=== PATIENT | female | born 1940 | race Caucasian/White ===

== ENCOUNTER → 2018-06-27 10:52 | Outpatient (CLI) | payer MEDICARE, SELFPAY | PROVIDERS: Family Provider Family Medicine; PCP Family Medicine; Visit Provider Nurse Practitioner Adult Health | DX: M79.672 Pain in left foot (principal) | CPT/HCPCS: 73630 ==

== ENCOUNTER → 2019-03-23 | Outpatient (CLI) | payer MEDICARE, SELFPAY ==
[2019-03-13 13:57] VITALS: BMI 37.8
--- NOTE | 2019-03-23 09:45 | RAD_ITS ---
STUDY: X-RAY - PELVIS AND LEFT HIP REASON FOR EXAM: Female, 79 years old. Right hip deformity TECHNIQUE: 3 views of the pelvis and hip. COMPARISON: None. FINDINGS: There is a non-specific bowel gas pattern. There are multiple calcified phleboliths. Normal bilateral iliac wings, sacroiliac joints and visualized sacrum. Normal bilateral superior and inferior pubic rami. Normal pubic symphysis. Normal bilateral ischial tuberosities. There are osteoarthritic changes of the femoral head with marginal osteophyte formation. There is osteoarthritic spur formation of the acetabular rim. There is mild articular joint space narrowing of the hip. RAD/HIP, UNI W/ Pelvis 2-3 Views IMPRESSION: Mild arthrosis of the left hip. Electronically Signed: Ming Garcia MD at 14:08 EDT , Service support ,
== END | disposition home or self-care (01) ==
PROVIDERS: Family Provider Family Medicine; PCP Family Medicine; Referring Provider Family Medicine; Visit Provider Family Medicine
DX: M25.552 Pain in left hip (principal)
CPT/HCPCS: 73502

== ENCOUNTER 2019-07-11 14:44 | Inpatient (IN) | payer MEDICARE, SELFPAY ==
[2019-03-13 13:57] VITALS: BMI 37.8
[2019-07-11] VITALS (13 sets, daily range): BP systolic 141–169; BP diastolic 70–95; PULSE 58–73; RESP 17–23; TEMP 36.6–36.9; O2SAT 94–98; BMI 36.8; BMI 33.1; BMI 33.2
--- NOTE | 2019-07-11 14:52 | NURSING ---
NO OLD EKGS
--- NOTE | 2019-07-11 15:13 | EKG12_ITS ---
Test Reason : CP Blood Pressure : / mmHG Vent. Rate : 063 BPM Atrial Rate : 063 BPM P-R Int : 174 ms QRS Dur : 078 ms QT Int : 454 ms P-R-T Axes : 012 -26 020 degrees QTc Int : 464 ms Normal sinus rhythm Normal ECG Confirmed by JUNG MARCUS ([id number]), editor continuity and script CELSO LAU ([id number]) on 07/16/2019 2:43:54 PM Referred By: TO Confirmed By:JUNG MARCUS
--- NOTE | 2019-07-11 15:14 | RAD_ITS ---
STUDY: X-RAY CHEST REASON FOR EXAM: Female, 79 years old. Chest pain TECHNIQUE: Single frontal view of the chest. COMPARISON: None. FINDINGS: The lungs are clear and expanded. There is no demonstrated pleural abnormality. Normal size heart. Normal mediastinum and emigdio. Normal visualized pulmonary arteries. Normal visualized aortic arch and descending thoracic aorta. Normal visualized thoracic spine. Remote deformity of the right humerus. There is no demonstrated abnormality of the visualized soft tissue structures of the upper abdomen. RAD/Chest 1 View (Portable) IMPRESSION: No acute pulmonary findings. Electronically Signed: Keagan Guzmán MD at 16:04 EDT Tel , Service support ,
--- NOTE | 2019-07-11 15:15 | ED.DCSUM_ITS ---
- ER Visit Summary Date of Service: 07/11/19 Chief Complaint: Chest pain History of Present Illness: The patient is a 79 F presenting with chest pain. Patient states this started around 11 AM. She complained of midsternal chest pain that radiated to her right arm. She had associated shortness of breath, nausea, diaphoresis. She states the pain was 8 out of 10. Currently it has resolved. She also had an episode last night with similar complaints. She has a history of hypertension, unknown family history. Remote history of DVT, no other PE/DVT risk factors. Physical Examination: Vitals are stable. Patient is afebrile. Alert no acute distress. HEENT exam is unremarkable. Neck is supple. Lungs are clear and equal bilaterally. Heart is regular rate and rhythm. Abdomen is soft nontender nondistended. Extremities are unremarkable. Nontender, no edema Skin is warm and dry. No focal neurologic deficit. Remainder of exam is unremarkable. Emergency Department Course and Treatment: Patient was given aspirin. EKG is sinus rhythm rate of 63 with no acute ischemic changes. CBC, chemistries unremarkable other than BUN 23, creatinine 1.06. Troponin 0.180. D-dimer 0.58. CTA chest is obtained and shows normal CTA chest examination, without a demonstrated pulmonary embolism or aortic dissection. Patient remains chest pain-free in the emergency department. Discussed with the hospitalist for observation. Disposition: Observation Impression: Chest pain This note was generated with [employer] dictation software. It may contain incorrect words, spelling, and punctuation that were not noted in review of the chart prior to signing ED Disposition - Plan for ED Patient: Referrals: John Gutierrez DO [Primary Care Provider] -
[2019-07-11] MEDS: Aspirin 81 MG TAB.CHEW 324 MG PO (15:25)
[2019-07-11 15:28] LABS: Absolute Lymphocyte Count 1.19 X10^3/uL (0.83-4.51); Absolute Neutrophil Count 4.7 X10^3/uL (2.0-7.7); Basophil# 0.02 X10^3/uL; Basophil% 0.3 % (0-1); Eosinophil# 0.07 X10^3/uL; Hematocrit 44.6 % (37-47); Lymphocyte # 1.19 X10^3/ul (4.0); Lymphocyte % 17.8 % (19-41); Mean Corp Hgb Conc 33.6 g/dL (32-36); Mean Corpuscular Hgb 31.7 pg (27.0-32.0); Mean Corpuscular Volume 94.3 fL (81-99); Mean Platelet Vol. 11.5 fl (6.2-12.0); Monocyte# 0.67 X10^3/uL; NRBC Flagged by Analyzer 0 % (0-5); Neutrophil # 4.73 X10^3/uL (2.7-7.7); Neutrophil % 70.6 % (47-70); Platelet Count 196 K/mm3 (150-450); RBC Distribution Width CV 13.1 % (11.6-14.6); RBC Distribution Width SD 45.1 fl (35.1-43.9); Red Blood Count 4.73 M/mm3 (4.2-5.4); White Blood Count 6.7 K/mm3 (4.4-11.0)
[2019-07-11 15:36] LABS: Anion Gap 4 (5-15); BUN 23 mg/dL (7-18); BUN/Creat Ratio 21.7 RATIO (10-20); Calcium,Total 9.2 mg/dL (8.5-10.1); Chloride 105 mmol/L (98-107); Creatinine, Serum 1.06 mg/dL (0.55-1.02); EST Glomerular Filtration Rate 53 mL/min (>60); Est Glom Filt Rate - Afr Amer 64 mL/min (>60); Glucose 103 mg/dL (74-106); Potassium 3.9 mmol/L (3.5-5.1); Sodium Level 139 mmol/L (136-145)
[2019-07-11 15:38] LABS: D-Dimer Quantitative (DVT/PE) 0.58 FEU/ug/m (0.27-0.49)
--- NOTE | 2019-07-11 15:39 | CT_ITS ---
STUDY: CTA CHEST REASON FOR EXAM: Female, 79 years old. Chest pain, SOB, elevated d-dimer RADIATION DOSAGE (If Supplied By Facility): CTDIvol = ( 8.65 ) mGy, DLP = ( 366.37 ) mGycm TECHNIQUE: The examination was performed with the intravenous administration of 100mL IV Isovue 370. Post-processing of the angiographic images was performed, with multiplanar reformation and 3D reconstruction. Individualized dose optimization techniques were used for this CT. COMPARISON: None. FINDINGS: Normal enhancement of the main pulmonary artery and right and left pulmonary arteries. Normal enhancement of the bilateral peripheral pulmonary arteries. There is no demonstrated pulmonary embolism. Normal thoracic aorta and visualized great vessels. There is no demonstrated aortic dissection. Normal heart and pericardium. Normal mediastinum. Normal hilar regions. Tracheobronchial calcifications. The lungs are well expanded. Normal pulmonary parenchyma. Normal pleura. Normal chest wall structures. Remote deformity of the right proximal humerus. Thoracic spondylosis. Normal visualized upper abdomen. CT/CTA Chest W/WO Contrast IMPRESSION: Normal CTA chest examination, without a demonstrated pulmonary embolism or aortic dissection. Electronically Signed: Keagan Guzmán MD at 16:46 EDT Tel , Service support ,
--- NOTE | 2019-07-11 16:53 | NURSING ---
DR MARIYA MAURER
--- NOTE | 2019-07-11 17:12 | NURSING ---
PCU OBS JASPREET MERAZ
--- NOTE | 2019-07-11 17:21 | HP.PCM_ITS ---
Problem List (1) NSTEMI (non-ST elevated myocardial infarction) Status: Acute History of Present Illness Date of Admission: 07/11/19 Chief Complaint: chest pain The patient is a 79 year old F normal state of health up until Tuesday, worse she was developing right-sided chest pain rating down her right arm. It was intermittent and but has persisted. Patient did not seek attention earlier because of the weekend feeling that she would not get the appropriate treatment and decided to stay home until today. Presented to the emergency room where she had a d-dimer that was 0.58, a troponin that was 0.18. Patient underwent a CT angiogram of her chest that was negative for pulmonary embolism. And patient being admitted for further cardiac evaluation. Patient is never had chest pain like this before. 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, ventricular (Chronic) Medical History: Medical History (Last Reviewed 07/11/19 @ 17:22 by Felix Ward DO) A-fib I48.91 Anemia D64.9 Arthritis M19.90 Cataracts, bilateral H26.9 History of kidney stones Z87.442 History of pneumonia Z87.01 Seasonal allergies J30.2 Hypertension I10 Allergies piroxicam [From Feldene] Adverse Reaction (Unknown, Verified 07/11/19 14:45) Unknown adhesive bandages Adverse Reaction (Unknown, Uncoded 07/11/19 14:45) Unknown Home Medications: Ambulatory Orders Medication Instructions Recorded amlodipine 10 mg tablet 10 mg PO DAILY 03/13/19 biotin 1 mg capsule 1 mg PO DAILY 03/13/19 cinnamon bark 500 mg capsule 500 mg PO BID 03/13/19 cranberry 400 mg capsule 400 mg PO DAILY 03/13/19 donepezil 10 mg tablet 10 mg PO QHS 03/13/19 lisinopril 10 1 tab PO DAILY 03/13/19 mg-hydrochlorothiazide 12.5 mg tablet metoprolol succinate ER 25 mg 25 mg PO DAILY 03/13/19 tablet,extended release 24 hr omega-3 fatty acids 1,000 mg 1,000 mg PO DAILY 03/13/19 capsule Aspirin [Aspir-Low] 81 mg PO QHS 07/11/19 Multivitamin [Daily Aleksandra] 1 ea PO DAILY 07/11/19 Naproxen Sodium [Aleve] 220 mg PO DAILY 07/11/19 Surgical History: Surgical History (Last Reviewed 07/11/19 @ 17:22 by Felix Ward DO) History of carpal tunnel release Z98.890 History of section Z98.891 Lives: Spouse/ Significant Other Smoking Status: Never smoker Tobacco Use: Non-smoker Alcohol: None - *Family History Maternal Family History: Family History (Last Reviewed 07/11/19 @ 17:22 by Felix Ward DO) Other Arthritis Cancer Review of Systems Constitutional: Denies: Anorexia, Chills, Fever, Night Sweats Eyes: Denies: Blurred vision, Double vision HEENT: Denies: Head Aches, Sinus Congestion, Sinus Drainage Cardiovascular: Reports: Chest Pain. Denies: Edema Respiratory: Denies: Cough, Shortness of breath at rest, Sputum production Gastrointestinal: Reports: Nausea, Vomiting. Denies: Abdominal Pain Genitourinary: Denies: Dysuria Musculoskeletal: Denies: Joint Pain, Joint Tenderness Skin: Denies: Rash, Wounds Hematologic/ Lymphatic: Denies: Easy Bruising, Easy Bleeding, Hx of blood clot Comment: A 10 point review of systems were negative except as mentioned in the history of present illness and the other review of systems. VTE Information - Inpt Only VTE Present on Admission: No VTE Mechan Device Prophylaxis: SCD's VTE Pharm Prophylaxis ordered?: No Reason prophylaxis not ordered:: Procedure Not Indicated Patient Problems: Active and Suspected Problems (Last Reviewed 03/13/19 @ 14:42 by John Gutierrez DO) NSTEMI (non-ST elevated myocardial infarction) (Acute) - Physical Exam General: Alert, Cooperative, No apparent distress HEENT: Atraumatic, Normocephalic Oral: Moist Mucosa, No Gingival or Mucosal Lesions/ Ulcerations Neck: No JVD, No Nodes, Thyroid Normal Size and Texture Lungs: Clear to auscultation, Normal air movement, No rhonchi, No wheeze, No rales Cardiovascular: Regular rate, Regular Rhythm, Normal S1, Normal S2, No murmurs Abdomen: Bowel Sounds Present, Soft, Non Tender, Non-Distended, No Hepato- splenomegaly Extremities: No edema, No Calf Tenderness Skin: No rashes, No breakdown Musculoskeletal: No Tenderness to Palpation of Joints or Extremities, No Muscle Wasting Neurological: Muscle tone normal, Sensory exam intact to light touch and pain Psych/Mental Status: Normal Affect, Appropriate Vital Signs Temp Pulse Resp BP Pulse Ox 36.9 C 59 L 19 H 141/75 H 95 07/11/19 17:11 07/11/19 17:11 07/11/19 17:11 07/11/19 17:11 07/11/19 17:11 Oxygen Delivery Method Room Air Weight: 85.5 kg Body Mass Index (BMI) 36.8 Laboratory Tests Past 24 Hrs 07/11/19 07/11/19 07/11/19 15:06 15:06 15:06 WBC 6.7 RBC 4.73 Hgb 15.0 Hct 44.6 MCV 94.3 MCH 31.7 MCHC 33.6 RDW Std Deviation 45.1 H RDW Coeff of Hafsa 13.1 Plt Count 196 MPV 11.5 Immature Gran % (Auto) 0.300 Neut % (Auto) 70.6 H Lymph % (Auto) 17.8 L [place] % (Auto) 10.0 Eos % (Auto) 1.0 Baso % (Auto) 0.3 Absolute Neuts (auto) 4.7 Absolute Lymphs (auto) 1.19 Nucleated RBC % 0 D-Dimer Quant (PE/DVT) 0.58 H* Sodium 139 Potassium 3.9 Chloride 105 Carbon Dioxide 30.0 Anion Gap 4 L BUN 23 H Creatinine 1.06 H Estim Creat Clear Calc 29.90 Est GFR (MDRD) Af Amer 64 Est GFR (MDRD) Non-Af 53 L BUN/Creatinine Ratio 21.7 H Glucose 103 Calcium 9.2 Troponin I 0.180 H Chest x-ray reviewed and was without infiltrate nor pulmonary edema. EKG was reviewed and showed normal sinus rhythm without any acute changes. Assessment/Plan All Active Problems (Last Reviewed 03/13/19 @ 14:42 by John Gutierrez DO) NSTEMI (non-ST elevated myocardial infarction) (Acute) 1. Non-ST elevation myocardial infarction * Currently asymptomatic at this time * Troponin still elevated to 0.18 * Discussed with Dr. Sharpe, cardiology, who advised loading the patient with clopidogrel 300 mg tonight and then 75 mg daily thereafter. Also recommended a one-time dose of therapeutic dose of enoxaparin which is given this evening. * Discussed earlier with the patient about the possibility of a left heart catheterization. Tentative plan is for left heart catheterization at some point on the fifth. * Continue with aspirin 2. Hypertension: * Continue with lisinopril/HCTZ and amlodipine 3. Paroxysmal atrial fibrillation * Had been on Coumadin in the past but is no longer on that. * Currently normal sinus rhythm * Patient be monitored on telemetry 4. VTE prophylaxis: Moderate risk. Patient be on SCDs. Patient will receive a therapeutic dosing of enoxaparin tonight. 5. Advanced care planning: Addressed CPR with the patient. Patient was seen was caught off guard by me asking but wishes to be full CODE STATUS this time. Recommended that she and her family, her present, have further discussion with this at a later point in regards to advanced directives. Code Visit Inpatient E&M: [id number] Init Hosp L3
--- NOTE | 2019-07-11 17:25 | CASEMGMT ---
RN CM Assessment Introduced role of RN CM to patient, Patient's Rodrick and patient's Dtr.? Patient is alert, oriented and able?to participate in RN CM Assessment. ?Care providers, pharmacy, and demographics verified. Presentation: CP, SOB Admit Dx: NSTEMI Re-Admit: No Barriers/Issues: None. Patient states that she and her live half the year in [place] and half the year in [place]. States see most of her doctors in [place]. PCP: John Gutierrez Specialists: Neuro- cannot recall name but state seen for early stage Alzheimer. Cardio- Dr Laguna. Preferred Pharmacy: [facility], [place] Insurance: [employer] [facility] PPO LNOK: Rodrick Cartre Rx Benefit:?Yes through [employer] LW/HPOA: None on file at [facility] Living Arrangements:? Lives with her in a 2 story home, no steps to enter home, bedroom on main floor. Dtr lives right across the driveway. ADL?s: Independent with ambulation and ADL's, states her and her help each other out. Uses [facility] as needed. Transportation: Uses [facility] hospital Van for medical appointments, states hires someone other times. States that upon DC either will hire someone, her Dtr or or family member that drives will take her home. DME: [facility] HHC: Past in [place] a few years ago. SNF: None Goal: Home, does not think will have any needs. Denies any questions/concerns or issues with DC planning at this time. Aware CM remains available for any emerging needs. DC PLAN: Home, NN anticipated. May need a coupon card if Dc'd on anticoagulant. COLUMBA Chan
--- NOTE | 2019-07-11 17:58 | EKG12_ITS ---
Test Reason : CP ADMISSION Blood Pressure : / mmHG Vent. Rate : 062 BPM Atrial Rate : 062 BPM P-R Int : 178 ms QRS Dur : 084 ms QT Int : 474 ms P-R-T Axes : 038 -11 041 degrees QTc Int : 481 ms Normal sinus rhythm Normal ECG When compared with ECG of 11-JUL-2019 14:48, MANUAL COMPARISON REQUIRED, DATA IS UNCONFIRMED Confirmed by KASEY MARIA, JENELLE ([id number]), associate entertainment editor CELSO LAU ([id number]) on 07/16/2019 3:16:02 PM Referred By: MALLIKA MERAZ Confirmed By:FRANSISCO PARKS MD
--- NOTE | 2019-07-11 18:48 | PCM.CONS.C ---
Problem List (1) NSTEMI (non-ST elevated myocardial infarction) Status: Acute (2) HTN (hypertension) Status: Chronic (3) PAF (paroxysmal atrial fibrillation) Status: Acute Reason for Consult Date of Consultation: 07/11/19 History of Present Illness: The patient is a 79 year old white female with a past cardiovascular history which is included hypertension and an episode of paroxysmal atrial fibrillation associated with a sepsis [id number] no obvious recurrence who presents for evaluation of chest discomfort and abnormal troponin I levels concerning for an non-ST segment elevation ID. She states that she has not had to be evaluated locally by cardiology since her evaluation in 2014. At that time she had a transthoracic echocardiogram performed and a stress nuclear imaging study. The results are as noted below. She states that she roberts in [place] and follows with a attendant campground there. Thus far she does not believe she has had to have any additional cardiovascular procedures performed. She notes since this past Tuesday she has had episodes of chest discomfort which she describes as a hurting discomfort. It radiates down her right arm. She is also had episodes of nausea, emesis, and diaphoresis. Her symptoms have worsened. She presented to the hospital for further evaluation. She has denied orthopnea, PND, or peripheral pitting edema on a chronic basis. Her family notes that she has had some peripheral pitting edema recently that is waxed and waned. There is been no near syncope or syncope. Her family also notes that her blood pressure may not be under adequate control. She had an ECG performed. It demonstrated sinus rhythm. She had no acute ECG changes. [] Past Medical History Allergies/Adverse Reactions: Allergies piroxicam [From Feldene] Adverse Reaction (Unknown, Verified 07/11/19 14:45) Unknown adhesive bandages Adverse Reaction (Unknown, Uncoded 07/11/19 14:45) Unknown Home Medications: Ambulatory Orders Medication Instructions Recorded amlodipine 10 mg tablet 10 mg PO DAILY 03/13/19 biotin 1 mg capsule 1 mg PO DAILY 03/13/19 cinnamon bark 500 mg capsule 500 mg PO BID 03/13/19 cranberry 400 mg capsule 400 mg PO DAILY 03/13/19 donepezil 10 mg tablet 10 mg PO QHS 03/13/19 lisinopril 10 1 tab PO DAILY 03/13/19 mg-hydrochlorothiazide 12.5 mg tablet metoprolol succinate ER 25 mg 25 mg PO DAILY 03/13/19 tablet,extended release 24 hr omega-3 fatty acids 1,000 mg 1,000 mg PO DAILY 03/13/19 capsule Aspirin [Aspir-Low] 81 mg PO QHS 07/11/19 Multivitamin [Daily Aleksandra] 1 ea PO DAILY 07/11/19 Naproxen Sodium [Aleve] 220 mg PO DAILY 07/11/19 Past Medical History (Chronic Problems): Chronic Problems (Last Reviewed 07/11/19 @ 17:22 by Feilx Ward DO) HTN (hypertension) (Chronic) 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 Objective: Vital Signs Temp Pulse Resp BP Pulse Ox 97.9 F 58 L 18 169/73 H 98 07/11/19 18:00 07/11/19 18:00 07/11/19 18:00 07/11/19 18:00 07/11/19 18:00 Oxygen Delivery Method Room Air Weight: 175 lb 7.807 oz Body Mass Index (BMI) 33.1 General: Awake, Alert, Oriented x 3, Cooperative, No Acute Distress HEENT: Atraumatic, Normocephalic, PERRL, EOMI, Sclera Non Icteric Oral: Moist Mucosa Neck: Supple, Good ROM, No JVD Lungs: Clear to auscultation Cardiovascular: Regular Rhythm, Normal S1, Normal S2 Vascular: No Carotid Bruits Abdomen: Bowel Sounds Present, Soft, Non Tender Extremities: No Cyanosis, No Clubbing, No edema Psych/Mental Status: Appropriate 07/11/19 15:06: WBC 6.7, RBC 4.73, Hgb 15.0, Hct 44.6, MCV 94.3, MCH 31.7, MCHC 33.6, Plt Count 196, MPV 11.5, Immature Gran % (Auto) 0.300, Neut % (Auto) 70.6 H, Lymph % (Auto) 17.8 L, [place] % (Auto) 10.0, Eos % (Auto) 1.0, Baso % (Auto) 0.3, Absolute Neuts (auto) 4.7, Nucleated RBC % 0 07/11/19 15:06: D-Dimer Quant (PE/DVT) 0.58 H* 07/11/19 15:06: Sodium 139, Potassium 3.9, Chloride 105, Carbon Dioxide 30.0, Anion Gap 4 L, BUN 23 H, Creatinine 1.06 H, Est GFR (MDRD) Af Amer 64, Est GFR (MDRD) Non-Af 53 L, BUN/Creatinine Ratio 21.7 H, Glucose 103, Calcium 9.2, Troponin I 0.180 H 07/11/19 18:10: Troponin I 0.170 H Rhythm: Sinus rhythm EKG: Sinus rhythm ECHO: 02-28-15 Left ventricle considered normal with an LVEF 60%; mild TR; estimated RV systolic pressure of 34 mmHg Stress Test: 02-28-15 PHARMACOLOGIC MYOCARDIAL PERFUSION STRESS TEST BASELINE INFORMATION: Resting EKG demonstrates sinus bradycardia with a rate of 58 beats per minute. Resting blood pressure was 182/94. MEDICATIONS: Lisinopril, Coumadin, fish oil, amlodipine, metoprolol. STRESS TEST: 0.4 mg of regadenoson was infused per usual protocol followed by rapid intravenous saline flush injection. Continuous EKG monitoring was performed. The maximum heart rate attained was 98 beats per minute, which was 68% of maximum predicted heart rate. The maximum workload attained was 1 MET. At rest, there were no ST or T-wave changes noted to suggest abnormal flow reserve. At peak infusion, no ST or T-wave changes were noted to suggest abnormal flow reserve. Resting blood pressure was 182/94. Final blood pressure was 170/92. No ST changes were noted to suggest ischemia. MYOCARDIAL PERFUSION PROTOCOL: 11.4 mCi of Sestamibi was injected at rest. 0.4 mg of regadenoson was infused per usual protocol. At peak infusion, 34.2 mCi of Sestamibi was injected. Stress images were obtained. Stress and rest images were reconstructed and compared in the short axis, vertical long, and horizontal long axes. Gated images were also obtained. PERFUSION SPECT ANALYSIS: Review of the images demonstrated normal uptake of tracer noted in all areas of the myocardium. The resting images similarly demonstrated normal uptake of tracer noted in all areas of the myocardium. No areas of reversibility are noted or infarct noted. GATED SPECT ANALYSIS: The gated ejection fraction is 74%. CONCLUSION: 1. Normal pharmacologic myocardial perfusion stress test. 2. Preserved ejection fraction. CXR: Preliminary evaluation: No acute cardiopulmonary disease process appreciated: Please see official report Chest CT Scan: Per the radiology report: No acute thromboembolic disease appreciated; no great vessel disease appreciated; please see the official report Assessment/Plan 1. Non-ST segment elevation ID The patient has had abnormal troponin I levels. Based upon her symptoms and/or objective findings there is concern of underlying CAD with an acute coronary syndrome and a non-ST segment elevation ID. At the present time she is being monitored. She is being treated medically. She appears to be symptomatically improved. It was recommended the patient be considered for further evaluation with diagnostic cardiac catheterization. The procedure and risks were discussed with the patient. She was agreeable to this approach. 2. Hypertension The patient does have a history of hypertension. Her family states that her blood pressure may not be under adequate control. Her medications will be adjusted to assist with her blood pressure control. 3. Paroxysmal atrial fibrillation The patient had a history of paroxysmal atrial fibrillation with a remote sepsis syndrome. There apparently has been no recurrence of this. She has not required long-term medical therapy including anticoagulant therapy. Her cardiac rate and rhythm will be followed during her hospitalization. Comment: The above was discussed and reviewed with the patient, her spouse, and her other family members present. The patient's case has also been discussed with Dr. Ward. This note was generated using a voice recognition system and there may be incorrect words, spelling or punctuation that were not noted when reviewing the office note prior to saving.
[2019-07-11] MEDS: Clopidogrel Bisulfate 300 MG Tablet PO (18:56)
[2019-07-11] MEDS: 0.9% Normal Saline 1,000 ML 125 ML IV (18:56)
--- NOTE | 2019-07-11 19:59 | ECHOD_ITS ---
Reason For Study: Chest Pain Procedure This was a 2D Doppler, Color Flow transthoracic echocardiogram. Exam performed portable in ICU/CCU. Left Ventricle Normal LV size. Concentric left ventricular hypertrophy. The estimated ejection fraction is 60 %. Stage 2 diastolic dysfunction. No regional wall motion abnormalities noted. Right Ventricle Normal RV size. Normal systolic function. Atria The left atrium is mildly enlarged. Normal right atrium. No doppler evidence for ASD. Mitral Valve There is no stenosis. No mitral valve insufficiency. Tricuspid Valve There is no tricuspid stenosis. Pulmonary artery systolic pressure is 40 mmHg. Trivial tricuspid valve insufficiency. Aortic Valve Trisinus/trileaflet aortic valve. There is no aortic stenosis. No aortic valve insufficiency. Pulmonic Valve There is no pulmonic valvular stenosis. Trivial pulmonic valve insufficiency. Great Vessels Normal aortic root. Pericardium/Pleural No pericardial effusion. MMode/2D Measurements & Calculations LVIDd: 4.1 cm IVSd: 1.2 cm LA dimension: 3.6 cm LVIDs: 2.3 cm LVPWd: 0.95 cm FS: 42.9 % LAV(MOD-sp4): 60.4 ml LA A4 area: 21.4 cm2 RA A4 area: 13.3 cm2 Time Measurements MV dec time: 0.26 sec Doppler Measurements & Calculations MV E max boni: 119.2 cm/sec Lat Peak E' Boni: 4.5 cm/sec Med Peak E' Boni: 6.6 cm/sec MV A max boni: 103.5 cm/sec E/E' lat: 26.8 E/E' med: 17.9 MV E/A: 1.2 MV V2 max: 157.0 cm/sec MV P1/2t max boni: 159.9 cm/sec Ao V2 max: 148.3 cm/sec MV max P.9 mmHg MV P1/2t: 59.7 msec Ao max P.8 mmHg MV V2 mean: 77.5 cm/sec MV dec slope: 784.2 cm/sec2 Ao V2 mean: 98.2 cm/sec MV mean P.9 mmHg MVA(P1/2t): 3.7 cm2 Ao mean P.5 mmHg MV V2 VTI: 50.9 cm Ao V2 VTI: 33.1 cm LV V1 max: 100.3 cm/sec PA V2 max: 93.4 cm/sec TR max boni: 301.0 cm/sec LV V1 max P.0 mmHg TR max P.2 mmHg LV V1 mean P.2 mmHg LV V1 mean: 69.7 cm/sec LV V1 VTI: 24.7 cm Interpretation Summary The estimated ejection fraction is 60 %. Stage 2 diastolic dysfunction. The left atrium is mildly enlarged. Ordering Physician: Aman Sharpe Referring Physician: Estiven Gutierrez M.D. Performed By: Jordon Gerber RCS
[2019-07-11] MEDS: Enoxaparin 80 MG/0.8 ML Syringe SC (20:45)
[2019-07-11] MEDS: Lisinopril 10 MG Tablet PO (22:02)
[2019-07-11] MEDS: Aspirin E.C. 81 MG Tablet PO (22:02)
[2019-07-11] MEDS: Donepezil HCl 10 MG Tablet PO (22:02)
--- NOTE | 2019-07-11 23:16 | EKG12_ITS ---
Test Reason : AM EKG Blood Pressure : / mmHG Vent. Rate : 065 BPM Atrial Rate : 065 BPM P-R Int : 176 ms QRS Dur : 084 ms QT Int : 456 ms P-R-T Axes : 052 -20 024 degrees QTc Int : 474 ms Normal sinus rhythm Normal ECG When compared with ECG of 11-JUL-2019 17:52, MANUAL COMPARISON REQUIRED, DATA IS UNCONFIRMED Confirmed by KASEY MARIA, JENELLE ([id number]), fashion editor CELSO LAU ([id number]) on 07/16/2019 3:14:09 PM Referred By: MARIYA Confirmed By:FRANSISCO PARKS MD
[2019-07-12] VITALS (37 sets, daily range): BP systolic 51–147; BP diastolic 33–92; PULSE 50–89; RESP 14–27; TEMP 36.4–37; O2SAT 92–99
[2019-07-12 04:44] LABS: Absolute Lymphocyte Count 1.65 X10^3/uL (0.83-4.51); Absolute Neutrophil Count 3.3 X10^3/uL (2.0-7.7); Basophil# 0.03 X10^3/uL; Basophil% 0.5 % (0-1); Eosinophil# 0.22 X10^3/uL; Eosinophils% 3.8 % (0-5); Hemoglobin 13.5 g/dL (12.0-15.0); Lymphocyte # 1.65 X10^3/ul (4.0); Lymphocyte % 28.6 % (19-41); Mean Corp Hgb Conc 33.8 g/dL (32-36); Mean Corpuscular Hgb 31.3 pg (27.0-32.0); Mean Corpuscular Volume 92.8 fL (81-99); Mean Platelet Vol. 11.2 fl (6.2-12.0); Monocyte# 0.53 X10^3/uL; Monocyte% 9.2 % (0-10); NRBC Flagged by Analyzer 0 % (0-5); Neutrophil # 3.31 X10^3/uL (2.7-7.7); Neutrophil % 57.6 % (47-70); Platelet Count 173 K/mm3 (150-450); RBC Distribution Width SD 44.4 fl (35.1-43.9); Red Blood Count 4.31 M/mm3 (4.2-5.4); White Blood Count 5.8 K/mm3 (4.4-11.0)
[2019-07-12 04:56] LABS: Anion Gap 7 (5-15); BUN 21 mg/dL (7-18); BUN/Creat Ratio 23.8 RATIO (10-20); Calcium,Total 8.5 mg/dL (8.5-10.1); Chloride 108 mmol/L (98-107); Cholesterol 137 mg/dL (200); Creatinine, Serum 0.88 mg/dL (0.55-1.02); EST Glomerular Filtration Rate 65 mL/min (>60); Est Glom Filt Rate - Afr Amer 79 mL/min (>60); Estimated Creatinine Clearance 37.83 ml/min; Glucose 121 mg/dL (74-106); High Density Lipoprotein 33 mg/dL; Potassium 3.1 mmol/L (3.5-5.1); Sodium Level 141 mmol/L (136-145); Triglycerides 73 mg/dL; Very Low Density Lipoprotein 15 mg/dL (5-40)
[2019-07-12] MEDS: amLODIPine 10 MG Tablet PO (05:25)
[2019-07-12] MEDS: Potassium Chloride 10mEq/100mL 10 MEQ/100 ML IV.SOLN. 100 MEQ IV BOLUS ×4 (05:25→09:05)
[2019-07-12] MEDS: hydroCHLOROthiazide 12.5mg 12.5 MG PO ×2 (05:25)
[2019-07-12] MEDS: Metoprolol(XL)Succ 25 MG Tablet PO (05:25)
[2019-07-12] MEDS: Lisinopril 10 MG Tablet PO ×2 (05:25→21:05)
[2019-07-12] MEDS: Clopidogrel Bisulfate 75 MG Tablet PO (08:16)
--- NOTE | 2019-07-12 08:30 | NURSING ---
Report called to [facility] Jacob in distillery lab[facility]. Informed him that patient's K was 3.1 this am and that patient had been medicated with K-Dur 50meq x1 dose and is currently receiving K-rider bad 3 of 4. RN spoke with KINGS Norton earlier and made her aware of same. Cierra instructed this RN to send down remaining K-Hira to be infused in distillery laborer. Cecil also made aware that patient did not receive her ASA 81mg as this is ordered at bedtime. This RN did offer to bring dose down to distillery laborer if needed. Cecil declined and stated that ASA was available in distillery laborer if needed.
--- NOTE | 2019-07-12 09:55 | CL.D_ITS ---
Patient Name: MARTHA EMERY Study Date: 07/12/2019 Performing: Aman Sharpe MD Ht: 61.02 inches 155 cm : 1940 Wt: 176.37 lbs 80 kg Age: 79 Gender: female BSA: 1.79 PROCEDURE(S) PERFORMED [id number]/COR/LV CLINICAL PROFILE AND INDICATIONS Indications: Worsening Angina, Suspected CAD Heart Failure: None Stress/Imaging Stress/Image Study Performed: No Angina Classification Anginal Classification w/in 2 Weeks: CCS IV CAD Presentations: Unstable angina. Non-STEMI. CONCLUSIONS Elevated Left Ventricular End Diastolic Pressure (mild) Normal LV size, wall motion,and systolic function LVEF: by LV gram 60 % [place] Multivessel CAD RECOMMENDATIONS Risk factor modification Medical therapy Staged for IVUS DESCRIPTION OF PROCEDURE The patient arrived to the procedure lab. The risks and benefits of the procedure as well as a full d escription of our services here and current unavailability of surgical backup were fully explained to the patient and/or their significant other prior to the catheterization. The Timeout was completed, verifying the correct patient and procedure. The patient's procedural site was prepped and draped in the usual fashion. Local anesthetic was given subcutaneously to right radial region with Lidocaine 2% . Local anesthetic was given subcutaneously to right groin region with Lidocaine 2%. Using a modified Seldinger technique, arterial access was obtained via the right radial artery, a 6Fr sheath was inse rted., arterial access was obtained via the right femoral artery, a 4Fr sheath was inserted Left Cor onary Artery selective angiography was performed in multiple views using a 4 Fr. JL5 catheter. Right Coronary Artery selective angiography was then performed in multiple views using a 4 Fr. 3DRC catheter. Left Ventriculography was performed in [place] projection using a 4 Fr. Pigtail catheter. LV to AO pullback pressures were then recorded.The arterial sheath was pulled and a TR Band was appli ed for hemostasis 12 cc's of air administered CORONARY ANGIOGRAPHY DOMINANCE: Right Dominant LEFT HEART ASSESSMENT Left Ventricular Ejection Fraction: by LV Gram 60 % Normal LV wall motion LVEDP: 15 mmHg LEFT MAIN: Angiographically normal LEFT ANTERIOR DESCENDING ARTERY: PROX LAD: Mild luminal irregularities MID LAD: Eccentric: 25 % Stenosis, Eccentric: Hazy: 50 - 75 % Stenosis CIRCUMFLEX ARTERY: Mild luminal irregularities RIGHT CORONARY ARTERY: Mild luminal irregularities VALVE FINDINGS: Normal Aortic Valve function Normal Mitral Valve function AORTIC ROOT: Angiographically normal COMPLICATIONS PROCEDURE MEDICATIONS Versed 1 mg IV Fentanyl 50 mcg IV Fentanyl 50 mcg IV Oxygen: 2 L/min via nasal cannula Heparin 6000 unit(s) IV 07/12/2019 09:24:04 Nitro 200 mcg IC 07/12/2019 09:33:22 Potassium Chloride 10 mEq in 100cc NS 07/12/2019 09:07:12 SUMMARY OF HEMODYNAMIC DATA Time AIR REST ECG 08:39:12 AO 95/62 (79) SA 09:04:06 LV 126/-8, 18 09:10:45 LV 127/-13, 15 09:10:51 LV 121/-6, 21 09:11:44 LV 122/-7, 15 09:11:50 LVp 126/-6, 21 09:11:57 AOp 121/54 (86) 09:12:02 Signed By Aman Sharpe MD On 07/12/2019 9:54:31 AM Aman Sharpe MD
--- NOTE | 2019-07-12 10:03 | CASEMGMT ---
According to the [employer] Medicare website, the following are in-network tertiary facilities: [facility], [facility], [facility], [facility], [facility], [facility], [place], [facility], and . Rere KU CM
--- NOTE | 2019-07-12 10:12 | NURSING ---
Report called to [facility] Pretty in ICU. Maria De Jesus informed that patient was sent to yard laborer with 3rd K-rider infusing and that [facility] Norton in yard laborer had stated to send patient with 4th K-rider to be infused in yard laborer. Patient also did not received ASA 81mg as this was ordered as a bedtime medication. This RN had spoken with [facility] Jacob in yard laborer and informed him of same. Per Cecil, if patient needs ASA, medication is available in yard laborer.
[2019-07-12] MEDS: Atropine Sulfate 1 MG/10 ML Syringe IV (11:02)
--- NOTE | 2019-07-12 11:07 | PN_ITS ---
Patient Problems: Active and Suspected Problems (Last Reviewed 07/11/19 @ 17:22 by Felix Ward DO) NSTEMI (non-ST elevated myocardial infarction) (Acute) Chest pain (Acute) Subjective: Chief complaint: Follow-up after admission for acute non-ST elevation OK. Patient was seen and examined. No acute events overnight. She denied any more chest pain, denies shortness of breath. She underwent cardiac catheterization with stent placement to mid LAD. Her vital signs are stable. - Physical Exam General: Alert, Oriented x3, Cooperative, No apparent distress HEENT: Atraumatic, PERRLA, EOMI, Normocephalic Oral: Moist Mucosa, No Gingival or Mucosal Lesions/ Ulcerations Neck: Supple, No JVD, Negative Carotid Bruits, Trachea Midline, Thyroid Normal Size and Texture Lungs: Clear to auscultation, Normal air movement, No rhonchi, No wheeze, No rales, Diminished Cardiovascular: Regular rate, Regular Rhythm, Normal S1, Normal S2, PMI Normal Abdomen: Bowel Sounds Present, Soft, Non Tender, Non-Distended, No Hepato- splenomegaly Extremities: No clubbing, No cyanosis, No edema Skin: No rashes, No breakdown Lymphatic: No Cervical, Supraclavicular, or Inguinal Adenopathy Neurological: Cranial nerves II-XII grossly intact, Motor Exam 5/5 strength throughout Psych/Mental Status: Normal Affect, Appropriate, Alert and oriented to time, place, person, mood and affect Vital Signs Temp Pulse Resp BP Pulse Ox 98.5 F 70 18 129/69 H 94 07/12/19 07:09 07/12/19 07:43 07/12/19 07:09 07/12/19 07:09 07/12/19 07:09 Oxygen Delivery Method Room Air Weight: 175 lb 7.807 oz Body Mass Index (BMI) 33.1 Intake and Output for Last 24 Hours 07/10/19 07/11/19 07/12/19 23:59 23:59 23:59 Intake Total 1013.33 / 1013.33 423.33 / 423.33 Output Total Balance 1013.33 / 1013.33 422.33 / 422.33 Laboratory Tests Past 24 Hrs 07/11/19 07/11/19 07/11/19 15:06 15:06 15:06 WBC 6.7 RBC 4.73 Hgb 15.0 Hct 44.6 MCV 94.3 MCH 31.7 MCHC 33.6 RDW Std Deviation 45.1 H RDW Coeff of Hafsa 13.1 Plt Count 196 MPV 11.5 Immature Gran % (Auto) 0.300 Neut % (Auto) 70.6 H Lymph % (Auto) 17.8 L [place] % (Auto) 10.0 Eos % (Auto) 1.0 Baso % (Auto) 0.3 Absolute Neuts (auto) 4.7 Absolute Lymphs (auto) 1.19 Nucleated RBC % 0 D-Dimer Quant (PE/DVT) 0.58 H* Sodium 139 Potassium 3.9 Chloride 105 Carbon Dioxide 30.0 Anion Gap 4 L BUN 23 H Creatinine 1.06 H Estim Creat Clear Calc 29.90 Est GFR (MDRD) Af Amer 64 Est GFR (MDRD) Non-Af 53 L BUN/Creatinine Ratio 21.7 H Glucose 103 Calcium 9.2 Troponin I 0.180 H Triglycerides Cholesterol LDL Cholesterol VLDL Cholesterol HDL Cholesterol 07/11/19 07/11/19 07/12/19 18:10 20:34 04:30 WBC 5.8 RBC 4.31 Hgb 13.5 Hct 40.0 MCV 92.8 MCH 31.3 MCHC 33.8 RDW Std Deviation 44.4 H RDW Coeff of Hafsa 13.0 Plt Count 173 MPV 11.2 Immature Gran % (Auto) 0.300 Neut % (Auto) 57.6 Lymph % (Auto) 28.6 [place] % (Auto) 9.2 Eos % (Auto) 3.8 Baso % (Auto) 0.5 Absolute Neuts (auto) 3.3 Absolute Lymphs (auto) 1.65 Nucleated RBC % 0 D-Dimer Quant (PE/DVT) Sodium Potassium Chloride Carbon Dioxide Anion Gap BUN Creatinine Estim Creat Clear Calc Est GFR (MDRD) Af Amer Est GFR (MDRD) Non-Af BUN/Creatinine Ratio Glucose Calcium Troponin I 0.170 H 0.200 H Triglycerides Cholesterol LDL Cholesterol VLDL Cholesterol HDL Cholesterol 07/12/19 04:30 WBC RBC Hgb Hct MCV MCH MCHC RDW Std Deviation RDW Coeff of Hafsa Plt Count MPV Immature Gran % (Auto) Neut % (Auto) Lymph % (Auto) [place] % (Auto) Eos % (Auto) Baso % (Auto) Absolute Neuts (auto) Absolute Lymphs (auto) Nucleated RBC % D-Dimer Quant (PE/DVT) Sodium 141 Potassium 3.1 L Chloride 108 H Carbon Dioxide 26.0 Anion Gap 7 BUN 21 H Creatinine 0.88 Estim Creat Clear Calc 37.83 Est GFR (MDRD) Af Amer 79 Est GFR (MDRD) Non-Af 65 BUN/Creatinine Ratio 23.8 H Glucose 121 H Calcium 8.5 Troponin I Triglycerides 73 Cholesterol 137 LDL Cholesterol 89 VLDL Cholesterol 15 HDL Cholesterol 33 L Clinical Impression(s) from Imaging Studies Chest X-Ray 07/11/19 15:14 IMPRESSION: No acute pulmonary findings. Electronically Signed: Keagan Guzmán MD at 16:04 EDT Tel , Service support , Chest CTA 07/11/19 15:39 IMPRESSION: Normal CTA chest examination, without a demonstrated pulmonary embolism or aortic dissection. Electronically Signed: Keagan Guzmán MD at 16:46 EDT Tel , Service support , Medical Necessity - Tobacco Use Smoking Status: Never smoker Tobacco Use: Non-smoker Assessment/Plan All Active Problems (Last Reviewed 07/11/19 @ 17:22 by Felix Ward DO) NSTEMI (non-ST elevated myocardial infarction) (Acute) Chest pain (Acute) This is an 79 years old female patient presented to the emergency room because of chest pain and she was found to have acute non-ST elevation OK, underwent cardiac catheterization. #1 acute non-ST elevation OK: Status post cardiac catheterization, found to have 50 to 75% stenosis of the mid LAD, status post stent placement. She is on aspirin, Plavix, lisinopril and metoprolol. Her vital signs are stable. 2D echocardiogram ordered. Cardiology on the case. Plan to continue same treatment. #2 hypokalemia: Probably due to HCTZ. She received IV potassium chloride this morning, will repeat BMP tomorrow morning. #3 hypertension: Blood pressure stable, continue Norvasc, lisinopril, HCTZ and metoprolol. #4 paroxysmal atrial fibrillation: At this time, she is sinus rhythm, rate is co ntrolled. She is on metoprolol for rate control. She is not on anticoagulation. #5 probable dementia: Continue Aricept. #6 DVT prophylaxis: SCDs. This note was generated with [employer] software. It may contain incorrect words, spelling, and punctuation that were not noted in checking the note before signing. Code Visit Inpatient E&M: 01313 Subs Hosp L2
[2019-07-12 11:25] LABS: ACT Activated Clotting Time 175 sec (74-137)
[2019-07-12] MEDS: 0.9% NaCl Peripheral Flush Adult/Peds IV (11:53)
--- NOTE | 2019-07-12 12:00 | EKG12_ITS ---
Test Reason : POST PCI Blood Pressure : / mmHG Vent. Rate : 061 BPM Atrial Rate : 061 BPM P-R Int : 174 ms QRS Dur : 080 ms QT Int : 486 ms P-R-T Axes : 061 -09 046 degrees QTc Int : 489 ms Normal sinus rhythm with sinus arrhythmia Normal ECG When compared with ECG of 12-JUL-2019 05:59, MANUAL COMPARISON REQUIRED, DATA IS UNCONFIRMED Confirmed by JUNG MARCUS ([id number]), communications editor VALERIE STRAUSS ([id number]) on 07/24/2019 1:00:58 PM Referred By: KASEY Confirmed By:JUNG MARCUS
[2019-07-12] MEDS: 0.9% Normal Saline 500 ML IV.SOLN. IV (12:05)
[2019-07-12] MEDS: 0.9% Normal Saline 1,000 ML 100 ML IV ×2 (12:34→21:05)
[2019-07-12] MEDS: Naproxen 250 MG Tablet PO (13:53)
[2019-07-12] MEDS: Multivitamins,Therapeutic Tablet 1 TABLET PO (13:54)
--- NOTE | 2019-07-12 15:11 | CHAPLAIN ---
Type of Pastoral Visit _x__ Initial Visit ___ Follow-up Visit ___ On-call Visit ___ General Patient Visit ___ Spiritual Assessment ___ Family Conference ___ Bereavement ___ Rapid Response ___ Code Blue ___ Other (describe below) Pastoral Care Referral From _x__ Patient _x__ Family ___ Nurse ___ Physician ___ Prom Burn Off Operator ___ University Services Program Associate ___ Other (describe below) Sacrament/Intervention _x__ Active listening ___ Anointing ___ Sikh ___ Bereavement ___ Communion ___ Dianna exploration ___ _x__ Life review _x__ Prayer ___ Reconciliation ___ Sacrament of Sick _x__ Supportive presence ___ Wedding ___ Other (describe below) Pastoral Comments
--- NOTE | 2019-07-12 16:08 | PN.CARD_ITS ---
Subjectve: The patient underwent evaluation earlier this day. This included diagnostic cardiac catheterization. She was found to have underlying LAD disease with an abnormal intravascular ultrasound study subsequently leading to LAD PCI. Since her procedure there is been no report of any acute cardiovascular complaints. Objective: Vital Signs Temp Pulse Resp BP Pulse Ox 97.6 F L 71 18 111/60 96 07/12/19 12:00 07/12/19 15:00 07/12/19 15:00 07/12/19 15:00 07/12/19 15:00 Oxygen Delivery Method Room Air Weight: 175 lb 7.807 oz Body Mass Index (BMI) 33.1 Intake and Output for Last 24 Hours 07/10/19 07/11/19 07/12/19 23:59 23:59 23:59 Intake Total 1013.33 / 1013.33 1323.33 / 1323.33 Output Total Balance 1013.33 / 1013.33 1322.33 / 1322.33 General: Awake, Alert, Oriented x 3, Cooperative, No Acute Distress HEENT: Atraumatic, Normocephalic, PERRL, EOMI, Sclera Non Icteric Oral: Moist Mucosa Neck: Supple, Good ROM, No JVD Lungs: Clear to auscultation Cardiovascular: Regular Rhythm, Normal S1, Normal S2 Vascular: Normal Femoral Pulses, Normal Radial Pulses Abdomen: Bowel Sounds Present, Soft, Non Tender Extremities: No edema Psych/Mental Status: Appropriate 07/11/19 18:10: Troponin I 0.170 H 07/11/19 20:34: Troponin I 0.200 H 07/12/19 04:30: WBC 5.8, RBC 4.31, Hgb 13.5, Hct 40.0, MCV 92.8, MCH 31.3, MCHC 33.8, Plt Count 173, MPV 11.2, Immature Gran % (Auto) 0.300, Neut % (Auto) 57.6, Lymph % (Auto) 28.6, [place] % (Auto) 9.2, Eos % (Auto) 3.8, Baso % (Auto) 0.5, Absolute Neuts (auto) 3.3, Nucleated RBC % 0 07/12/19 04:30: Sodium 141, Potassium 3.1 L, Chloride 108 H, Carbon Dioxide 26.0, Anion Gap 7, BUN 21 H, Creatinine 0.88, Est GFR (MDRD) Af Amer 79, Est GFR (MDRD) Non-Af 65, BUN/Creatinine Ratio 23.8 H, Glucose 121 H, Calcium 8.5, Triglycerides 73, Cholesterol 137, LDL Cholesterol 89, VLDL Cholesterol 15, HDL Cholesterol 33 L Rhythm: Sinus rhythm Medical Necessity - Tobacco Use Smoking Status: Never smoker Tobacco Use: Non-smoker Assessment/Plan 1. CAD/non-ST segment elevation OK The patient has been found to have CAD. She was found to have LAD disease. Her LAD was evaluated with intravascular ultrasound which was thought to be abnormal. She subsequently underwent LAD PCI. She will need continued medical management and future outpatient cardiovascular follow-up. 2. Hypertension The patient does have a history of hypertension. Her family states that her blood pressure may not be under adequate control. Her medications will be adjusted to assist with her blood pressure control. 3. Paroxysmal atrial fibrillation The patient had a history of paroxysmal atrial fibrillation with a remote sepsis syndrome. There apparently has been no recurrence of this. She has not required long-term medical therapy including anticoagulant therapy. Her cardiac rate and rhythm will be followed during her hospitalization. Comment: The above was discussed and reviewed with the patient, her spouse, and her other family members present. This note was generated using a voice recognition system and there may be incorrect words, spelling or punctuation that were not noted when reviewing the office note prior to saving.
[2019-07-12] MEDS: Aspirin E.C. 81 MG Tablet PO (21:05)
[2019-07-12] MEDS: Donepezil HCl 10 MG Tablet PO (21:05)
[2019-07-13] VITALS (13 sets, daily range): BP systolic 109–147; BP diastolic 33–86; PULSE 57–73; RESP 18–23; TEMP 36.6–36.8; O2SAT 93–97; BMI 33.0
[2019-07-13 05:22] LABS: Hematocrit 31.4 % (37-47); Hemoglobin 10.7 g/dL (12.0-15.0); Mean Corp Hgb Conc 34.1 g/dL (32-36); Mean Corpuscular Hgb 32.1 pg (27.0-32.0); Mean Corpuscular Volume 94.3 fL (81-99); Platelet Count 161 K/mm3 (150-450); RBC Distribution Width CV 13.4 % (11.6-14.6); RBC Distribution Width SD 45.7 fl (35.1-43.9); Red Blood Count 3.33 M/mm3 (4.2-5.4); White Blood Count 6.1 K/mm3 (4.4-11.0)
[2019-07-13 05:39] LABS: ALB/GLOB Ratio 0.9 RATIO (0.9-2.4); AST(SGOT) 16 U/L (15-37); Alanine Aminotransfer ALT/SGPT 14 U/L (13-56); Albumin, Serum 2.7 g/dL (3.2-5.0); Alkaline Phosphatase 70 U/L (45-117); Anion Gap 7 (5-15); BUN 16 mg/dL (7-18); BUN/Creat Ratio 20.1 RATIO (10-20); Calcium,Total 8.2 mg/dL (8.5-10.1); Chloride 111 mmol/L (98-107); EST Glomerular Filtration Rate 73 mL/min (>60); Est Glom Filt Rate - Afr Amer 89 mL/min (>60); Estimated Creatinine Clearance 41.62 ml/min; Glucose 105 mg/dL (74-106); Potassium 3.8 mmol/L (3.5-5.1); Protein, Total 5.7 g/dL (6.4-8.2); Sodium Level 142 mmol/L (136-145)
[2019-07-13] MEDS: Naproxen 250 MG Tablet PO (07:59)
[2019-07-13] MEDS: Lisinopril 10 MG Tablet PO (08:00)
[2019-07-13] MEDS: Metoprolol(XL)Succ 25 MG Tablet PO (08:01)
[2019-07-13] MEDS: Multivitamins,Therapeutic Tablet 1 TABLET PO (08:01)
[2019-07-13] MEDS: hydroCHLOROthiazide 12.5mg 12.5 MG PO (08:01)
[2019-07-13] MEDS: Clopidogrel Bisulfate 75 MG Tablet PO (08:01)
[2019-07-13] MEDS: amLODIPine 10 MG Tablet PO (08:02)
--- NOTE | 2019-07-13 08:40 | CRPHASE1 ---
Patient Communication PHII Cardiac Rehab Discussed with Patient:: Yes Guide to Cardiac Rehab Given to Patient:: Yes Cardiac Rehab Facility Choice List Given to Patient:: Yes - [facility] or [facility], they will decide in future Choice Program [facility] CR PHII:: Communication Given to CR, Refer to [facility] Health Services Coordinator:: Steven Sparks PCP:: John Gutierrez Refer Phase II Cardiac Rehab:: Yes Sessions:: 36 sessions - 3 days/wk, 12 weeks Phase I Charge:: Level I - Education Risk Factors/Lifestyle Smoking Status: Never smoker Hx Hypertension: Yes Hx Dyslipidemia: Yes Hx Obesity: Yes Height: 5 ft 1 in Weight:: 175 lb BMI: 33.0 Post-Menopausal: Yes Risk Factor for Sedentary Lifestyle: Lowest Risk Family History: Family History (Last Reviewed 07/11/19 @ 17:22 by Felix Ward DO) Other Arthritis Cancer Family History: Diabetes, Heart Disease Laboratory Values: Cardiac Rehab Phase I Labs Triglycerides 73 mg/dL (-199) 07/12/19 04:30 Cholesterol 137 mg/dL (200) 07/12/19 04:30 LDL Cholesterol 89 mg/dL (0-130) 07/12/19 04:30 HDL Cholesterol 33 mg/dL (40-) L 07/12/19 04:30 Phase I Education Given On:: [place], Nutrition, Antiplatelet medication, CHF Issues Affecting Care:: None Knowledge of Condition:: Yes Learning Preferences: Verbal, Written, Audio/Visual, Demonstration Medical/Surgical History Hypertension:: Yes Dyslipidemia:: Yes Other Medical/Surgical Issues:: hypokalemia, paroxysmal A Fib Discharge/Home/Social Eval Marital Status: Patient Lives With:: spouse Exercise/Recreation/Interests:: walks alneelam Cardiac Rehabilitation Info Cardiac Rehabilitation Program Information: Cardiac Rehabilitation is important for patients like you who are recovering from a heart problem. Cardiac rehabilitation programs are recognized as integral to the continued care of the patient with coronary heart disease. The cardiac rehabilitation program is designed to optimize a patient's physical, psychological, and social functioning. Health health care manager work in cardiac rehabilitation programs and assist you with getting the treatments you need to get stronger and healthier - like exercise, healthy eating habits, and medications. Cardiac rehabilitation has been show to help people with heart problems live longer and have better life enjoyment than people who do not go to cardiac rehabilitation. Please contact the Cardiac Rehabilitation Program at [facility] at in two weeks if you have not heard from them.
--- NOTE | 2019-07-13 08:47 | CRPH1.INSTRU ---
General Education CAD and cardiac anatomy and function:: Patient communicates acknowledgment, Needs reinforcement Explanation of diagnoses and procedures:: Patient communicates acknowledgment, Needs reinforcement Sign/Symptoms of RI:: Patient communicates acknowledgment, Needs reinforcement Antiplatelet therapy: Patient communicates acknowledgment, Needs reinforcement Proper use of NTG-SL: Patient communicates acknowledgment, Needs reinforcement Emergency procedures and activation of EMS: Patient communicates acknowledgment, Needs reinforcement Compliance of all prescribed medications: Patient communicates acknowledgment, Needs reinforcement Smoking Patient Nicotine/Smoking Risk Factors Are:: Never smoked Nicotine/Smoking Response Code:: Not instructed Dyslipidemia Patient Dyslipidemia Risk Factors Are:: Total Cholesterol, Triglycerides, HDL, LDL Recommendations Include:: Lipid profile provided, Reviewed NCEP/ATP guidelines, Therapeutic Lifestyle Change dietary guidelines Dyslipidemia Response Code:: Patient communicates acknowledgment, Needs reinforcement Overweight/Obesity Patient Overweight/Obesity Risk Factors Are:: Obesity - > or = 30 Recommendations Include:: Weight loss of 5-10%, Reduced calorie diet, Exercise 5-7 times/week Overweight/Obesity:: Patient communicates acknowledgment, Needs reinforcement Hypertension Recommendations Include:: Maintain BP <130/85, DASH dietary guidelines, Decrease/maintain normal body weight, Moderation of ETOH Hypertension:: Patient communicates acknowledgment, Needs reinforcement Heart Disease Patient Heart Disease Risk Factors Are:: Family history of heart disease < 65 years old Recommendations Include:: Educated family members of their risk, Educated family members of importance of prevention of heart disease Heart Disease Response Code:: Patient communicates acknowledgment, Needs reinforcement Diabetes Patient Diabetes Risk Factors Are:: No documented hx of diabetes Diabetes:: Not instructed Metabolic Syndrome Patient Metabolic Syndrome Risk Factors Are [3 of 5]:: Waist circumference > 35 [female] or 40 [male], Hypertension, Low HDL <40 [male] or < 50 [female] Recommendations Include:: Reinforce compliance to risk factor modifications, Encouraged follow-up with Primary Care Physician Metabolic Syndrome Response Code:: Patient communicates acknowledgment, Needs reinforcement Sedentary Patient Sedentary Risk Factors Are:: Lack of regular exercise Recommendations Include:: Aerobic exercise 5-7 times/week for 20-30 minutes continuously, Benefits of regular exercise, Discussed home walking program, Monitored Outpatient Cardiac Rehab Sedentary Response Code:: Patient communicates acknowledgment, Needs reinforcement Stress Patient Stress Risk Factors Are:: Patient denies stress as a risk factor Recommendations Include:: Identification of stressors, and assessment of coping skills Stress Response Code:: Patient communicates acknowledgment, Needs reinforcement
--- NOTE | 2019-07-13 10:00 | EKG12_ITS ---
Test Reason : AM EKG Blood Pressure : / mmHG Vent. Rate : 063 BPM Atrial Rate : 063 BPM P-R Int : 176 ms QRS Dur : 084 ms QT Int : 464 ms P-R-T Axes : 012 -10 028 degrees QTc Int : 474 ms Normal sinus rhythm Normal ECG When compared with ECG of 12-JUL-2019 10:17, MANUAL COMPARISON REQUIRED, DATA IS UNCONFIRMED Confirmed by JUNG MARCUS ([id number]), newspaper photo editor VALERIE STRAUSS ([id number]) on 07/24/2019 1:01:07 PM Referred By: KASEY Confirmed By:JUNG MARCUS
--- NOTE | 2019-07-13 10:12 | PCM.DC ---
- Discharge Diagnoses Current Active Problems: Current Active and Chronic Problems (Last Reviewed 07/11/19 @ 17:22 by Felix Ward DO) NSTEMI (non-ST elevated myocardial infarction) (Acute) Chest pain (Acute) HTN (hypertension) (Chronic) PAF (paroxysmal atrial fibrillation) (Chronic) You will use the following diet at home:: Cardiac Your food should be the consistency of: Regular Discharge Activity: Return to Normal Activity Weight Bearing Status: Weight bearing as tolerated Call your doctor if you observe: Fever of 101 or Higher, Shortness of breath, Dizziness, Fainting spells, Chest pain, Increased palpitations (irregular heartbeat), Uncontrolled pain Allergies/Adverse Reactions: Allergies piroxicam [From Feldene] Adverse Reaction (Unknown, Verified 07/11/19 14:45) Unknown adhesive bandages Adverse Reaction (Unknown, Uncoded 07/11/19 14:45) Unknown Medications to take at Discharge amlodipine 10 mg tablet 10 mg PO DAILY 03/13/19 biotin 1 mg capsule 1 mg PO DAILY 03/13/19 cinnamon bark 500 mg capsule 500 mg PO BID 03/13/19 cranberry 400 mg capsule 400 mg PO DAILY 03/13/19 donepezil 10 mg tablet 10 mg PO QHS 03/13/19 metoprolol succinate ER 25 mg tablet,extended release 24 hr 25 mg PO DAILY 03/13/19 omega-3 fatty acids 1,000 mg capsule 1,000 mg PO DAILY 03/13/19 Aspirin [Aspir-Low] 81 mg PO QHS 07/11/19 Multivitamin [Daily Aleksandra] 1 ea PO DAILY 07/11/19 Naproxen Sodium [Aleve] 220 mg PO DAILY 07/11/19 Clopidogrel Bisulfate [Plavix] 75 mg PO DAILY #90 tab 07/13/19 Lisinopril/Hydrochlorothiazide [Lisinopril-Hctz 20-12.5 mg Tab] 1 ea PO DAILY #30 tab 07/13/19 The following prescriptions were given: Lisinopril/Hydrochlorothiazide [Lisinopril-Hctz 20-12.5 mg Tab] 1 ea PO DAILY #30 tab Transmission Status: Pending to [place], [place] Clopidogrel Bisulfate [Plavix] 75 mg PO DAILY #90 tab Transmission Status: Pending to [place], [place] Primary Care Physician: Brown,John R, DO [Primary Care Provider] - Please follow up with your Primary Care Physician in: 1-2 weeks. Test Results: Test results from this visit will be discussed in further detail at your follow-up appointment, if applicable. Please Follow Up With: Steven Sparks MD When: 2-4 weeks.
--- NOTE | 2019-07-13 10:22 | PCM.PN.CARD ---
Subjectve: Patient is doing well today. No chest pain, shortness of breath Objective: Vital Signs Temp Pulse Resp BP Pulse Ox 97.8 F 70 19 H 143/42 H 95 07/13/19 08:00 07/13/19 08:01 07/13/19 08:00 07/13/19 08:00 07/13/19 08:00 Oxygen Delivery Method Room Air Weight: 175 lb Body Mass Index (BMI) 33.1 Intake and Output for Last 24 Hours 07/11/19 07/12/19 07/13/19 23:59 23:59 23:59 Intake Total 1013.33 / 1013.33 2885.00 / 2885.00 343.33 / 343.33 Output Total 1301 / 1301 Balance 1013.33 / 1013.33 1584.00 / 1584.00 343.33 / 343.33 General: Awake, Alert, Oriented x 3 HEENT: Atraumatic Oral: Moist Mucosa Neck: Supple Lungs: Clear to auscultation Cardiovascular: Normal S1, Normal S2 Abdomen: Soft Extremities: No edema Skin: No Rashes Psych/Mental Status: Appropriate 07/13/19 05:10: Sodium 142, Potassium 3.8, Chloride 111 H, Carbon Dioxide 24.0, Anion Gap 7, BUN 16, Creatinine 0.80, Est GFR (MDRD) Af Amer 89, Est GFR (MDRD) Non-Af 73, BUN/Creatinine Ratio 20.1 H, Glucose 105, Calcium 8.2 L, Total Bilirubin 0.60 07/13/19 05:10: WBC 6.1, RBC 3.33 L, Hgb 10.7 L, Hct 31.4 L, MCV 94.3, MCH 32.1 H, MCHC 34.1, Plt Count 161, MPV 11.0 Rhythm: EKG: ECHO: Stress Test: Cardiac Cath: PCI: CT Surgery: Holter monitor: EPS: PPM: CXR: Chest CT Scan: Medical Necessity - Tobacco Use Smoking Status: Never smoker Tobacco Use: Non-smoker
--- NOTE | 2019-07-13 10:55 | CL.I_ITS ---
Patient Name: MARTHA EMERY Study Date: 07/12/2019 Performing: Whitney Sparks MD Ht: 61 inches 155 cm : 1940 Wt: 176.6 lbs 80 kg Age: 79 Gender: female BSA: 1.79 PROCEDURE(S) PERFORMED [id number], CORONARY OR GRAFT, INITIAL VESSEL [id number] W OR WO PTCA, SINGLE CORONARY ARTERY CLINICAL PROFILE AND CO-MORBIDITIES Indications: Worsening Angina, Suspected CAD Heart Failure: None Stress/Imaging Stress/Image Study Performed: No Angina Classification Anginal Classification w/in 2 Weeks: CCS IV CAD Presentations: Unstable angina. Non-STEMI. CONCLUSIONS Successful PCI with MARY BETH to the mLAD RECOMMENDATIONS Follow up with Dr. Dell ABDI Indefinitley Plavix for at least 12 months Risk factor modification DESCRIPTION OF PROCEDURE The patient arrived to the procedure lab. The risks and benefits of the procedure as well as a full d escription of our services here and current unavailability of surgical backup were fully explained to the patient and/or their significant other prior to the catheterization. The Timeout was completed, verifying the correct patient and procedure. The patient's procedural site was prepped and draped in the usual fashion. Local anesthetic was given subcutaneously to right radial region with Lidocaine 2% . Local anesthetic was given subcutaneously to right groin region with Lidocaine 2% Using a modified Seldinger technique,arterial access was obtained via the right radial artery, a 6Fr sheath was insert ed., arterial access was obtained via the right femoral artery, a 4Fr sheath was inserted Left Jain ry Artery selective angiography was performed in multiple views using a 4 Fr. JL5 catheter. Right Cor onary Artery selective angiography was then performed in multiple views using a 4 Fr. 3DRC catheter. Left Ventriculography was performed in BURCIAGA projection using a 4 Fr. Pigtail catheter. LV to AO pullback pressures were then recorded.The images were reviewed and options discussed. A decision was then made to proceed with an Intervention, IVUS or other adjunct procedure. Arterial sheath was exchanged for a 6 Fr Sheath. xb 3.5 Guide catheter was inserted and engaged i nto the LCA. bmw Guide wire was advanced to the LAD. IVUS pullback recording was performed on the mid lad for pre- intervention / lesion assessment. synergy 2.5 x 8 Balloon catheter was advanced across lesion in the LAD, mid. Angiogram performed post stent deployment. The arterial sheath was pulled a nd a TR Band was applied for hemostasis 12 cc's of air administered. The arterial sheath was sutured in place and capped INTERVENTION INFORMATION LESION SITE: LAD (Mid) Lesion Complexity: Non-High/Non-C, chronic total occlusion: No, lesion at bifurcation: No, thrombus p resent: No, lesion length: 6 mm, culprit lesion: Yes, Previously treated lesion: No Pre Stenosis: 70 % Pre intervention RONY flow: 3 PROCEDURE: Drug Eluting Stent Post Stenosis: 0 % Post intervention RONY flow: 3 Lesion Devices: emoquo 6 Fr XB3.5 100cm Guide Catheter IGT Devices ( Formerly [employer]) Coronary IVUS Catheter Obdulio Sci Synergy MR MARY BETH 2.50x08 COMPLICATIONS No Complications PROCEDURE MEDICATIONS Versed 1 mg IV Fentanyl 50 mcg IV Fentanyl 50 mcg IV Oxygen: 2 L/min via nasal cannula Heparin 6000 unit(s) IV 07/12/2019 09:24:04 Nitro 200 mcg IC 07/12/2019 09:33:22 Potassium Chloride 10 mEq in 100cc NS 07/12/2019 09:07:12 SUMMARY OF HEMODYNAMIC DATA Time AIR REST ECG 08:39:12 AO 95/62 (79) SA 09:04:06 LV 126/-8, 18 09:10:45 LV 127/-13, 15 09:10:51 LV 121/-6, 21 09:11:44 LV 122/-7, 15 09:11:50 LVp 126/-6, 21 09:11:57 AOp 121/54 (86) 09:12:02 Signed By Whitney Sparks MD On 07/13/2019 10:54:34 Whitney Sparks MD
--- NOTE | 2019-07-13 11:17 | CASEMGMT ---
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 Pt had said that Gene is pt's POA. NIMO Rodas
--- NOTE | 2019-07-13 12:01 | DS.PCM_ITS ---
Discharge Date and Diagnosis Date of Admission: 07/11/19 Date of Discharge: 07/13/19 - Primary Discharge Diagnosis Acute non-ST elevation FL status post cardiac catheterization and PCI to mid LAD. 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 Electronically Signed: Keagan Guzmán MD at 16:04 EDT Tel , Service support , Chest CTA 07/11/19 15:39 IMPRESSION: Normal CTA chest examination, without a demonstrated pulmonary embolism or aortic dissection. Electronically Signed: Keagan Guzmán MD at 16:46 EDT Tel , Service support , Dr. Sharpe, Dr. Sparks, cardiology. Procedures: Cardiac catheterization, EKG Summary of Care Provided: Patient seen and examined on the day of discharge and appeared to be stable to be discharged home. She denies any more chest pain or shortness of breath. Her vital signs has been stable. The patient is a 79 year old F admitted because of chest pain and she was found to have acute non-ST elevation FL. Her EKG revealed no evidence of acute ischemic changes. Her troponin was borderline elevated. CTA chest done also and showed no PE or dissection. Her chest x-ray showed no acute findings. She underwent cardiac catheterization she was found to have 50 to 75% stenosis of the mid LAD status post PCI/placement of drug-eluting stent. Patient was treated with aspirin, Plavix, lisinopril and metoprolol. After cardiac catheterization, patient developed a small right groin hematoma and subsequently anemia. It was easy to stop the bleeding on the right groin and there was no evidence of large hematoma, there was some ecchymosis. Patient's vital signs remained stable after cardiac catheterization. Her routine blood work was remarkable only for hemoglobin of 10.7 g/dL after catheterization, otherwise normal. Patient seen and examined by cardiology on the day of discharge and recommended that patient can be discharged home today. Patient discharged home in a stable medical condition, discharged on aspirin, Plavix, metoprolol and lisinopril, dose of lisinopril changed to 20 mg p.o. daily instead of 10 mg p.o. daily, remained on her previous other home medications without any changes, plan to follow-up with cardiology in 2 to 4 weeks, follow-up with PCP in 1 to 2 weeks. - Physical Exam General: Alert, Oriented x3, Cooperative, No apparent distress HEENT: Atraumatic, PERRLA, EOMI, Normocephalic Oral: Moist Mucosa, No Gingival or Mucosal Lesions/ Ulcerations Neck: Supple, No JVD, Negative Carotid Bruits, Trachea Midline, Thyroid Normal Size and Texture Lungs: Clear to auscultation, Normal air movement, No rhonchi, No wheeze, No rales Cardiovascular: Regular rate, Regular Rhythm, Normal S1, Normal S2, PMI Normal Abdomen: Bowel Sounds Present, Soft, Non Tender, Non-Distended, No Hepato- splenomegaly Extremities: No clubbing, No cyanosis, No edema Skin: No rashes, No breakdown Lymphatic: No Cervical, Supraclavicular, or Inguinal Adenopathy Neurological: Cranial nerves II-XII grossly intact, Neuro grossly intact Psych/Mental Status: Normal Affect, Appropriate Vital Signs Temp Pulse Resp BP Pulse Ox 97.8 F 68 20 H 127/49 H 95 07/13/19 08:00 07/13/19 10:00 07/13/19 10:00 07/13/19 10:07/13/19 10:00 Oxygen Delivery Method Room Air Weight: 175 lb Body Mass Index (BMI) 33.1 Intake and Output for Last 24 Hours 07/11/19 07/12/19 07/13/19 23:59 23:59 23:59 Intake Total 1013.33 / 1013.33 2885.00 / 2885.00 343.33 / 343.33 Output Total 1301 / 1301 Balance 1013.33 / 1013.33 1584.00 / 1584.00 343.33 / 343.33 Laboratory Tests Past 24 Hrs 07/13/19 07/13/19 05:10 05:10 WBC 6.1 RBC 3.33 L Hgb 10.7 L Hct 31.4 L MCV 94.3 MCH 32.1 H MCHC 34.1 RDW Std Deviation 45.7 H RDW Coeff of Hafsa 13.4 Plt Count 161 MPV 11.0 Sodium 142 Potassium 3.8 Chloride 111 H Carbon Dioxide 24.0 Anion Gap 7 BUN 16 Creatinine 0.80 Estim Creat Clear Calc 41.62 Est GFR (MDRD) Af Amer 89 Est GFR (MDRD) Non-Af 73 BUN/Creatinine Ratio 20.1 H Glucose 105 Calcium 8.2 L Total Bilirubin 0.60 AST 16 ALT 14 Alkaline Phosphatase 70 Total Protein 5.7 L Albumin 2.7 L Globulin 3.0 Albumin/Globulin Ratio 0.9 Discharge Activity: Return to Normal Activity Weight Bearing Status: Weight bearing as tolerated Call your doctor if you observe: Fever of 101 or Higher, Shortness of breath, Dizziness, Fainting spells, Chest pain, Increased palpitations (irregular heartbeat), Uncontrolled pain Home Medications: Medications to take at Discharge amlodipine 10 mg tablet 10 mg PO DAILY 03/13/19 biotin 1 mg capsule 1 mg PO DAILY 03/13/19 cinnamon bark 500 mg capsule 500 mg PO BID 03/13/19 cranberry 400 mg capsule 400 mg PO DAILY 03/13/19 donepezil 10 mg tablet 10 mg PO QHS 03/13/19 metoprolol succinate ER 25 mg tablet,extended release 24 hr 25 mg PO DAILY 03/13/19 omega-3 fatty acids 1,000 mg capsule 1,000 mg PO DAILY 03/13/19 Aspirin [Aspir-Low] 81 mg PO QHS 07/11/19 Multivitamin [Daily Aleksandra] 1 ea PO DAILY 07/11/19 Naproxen Sodium [Aleve] 220 mg PO DAILY 07/11/19 Clopidogrel Bisulfate [Plavix] 75 mg PO DAILY #90 tab 07/13/19 Lisinopril/Hydrochlorothiazide [Lisinopril-Hctz 20-12.5 mg Tab] 1 ea PO DAILY #30 tab 07/13/19 Following Prescrptions Were Given to Patient: Lisinopril/Hydrochlorothiazide [Lisinopril-Hctz 20-12.5 mg Tab] 1 ea PO DAILY #30 tab Transmission Status: Received by [place], [place] Clopidogrel Bisulfate [Plavix] 75 mg PO DAILY #90 tab Transmission Status: Received by [place] Primary Care Physician: John Gutierrez DO [Primary Care Provider] - Please follow up with your Primary Care Physician in: 1-2 weeks. Please Follow Up With: Xavi Holliday NP-C When: 2-4 weeks. Disposition: Home Minutes spent on discharge:: 32 Patient Condition:: Stable Medical Necessity - Tobacco Use Smoking Status: Never smoker Tobacco Use: Non-smoker Meaningful Use Info Meaningful Use Diagnoses (Choose all that apply): AMI - AMI Aspirin given w/in 24hrs of arrival?: Yes ASA at discharge?: Yes Statins at discharge?: Yes Raymond/ARB at discharge?: Yes Beta Micaela at discharge?: Yes Done w/ Acute FL measure.: Yes Documented LVEF (%): 60 Code Visit Inpatient E&M: [id number] Disch Hosp
== END 2019-07-13 11:15 | disposition home or self-care (01) | DRG 247 ==
LOC: ED 15:20 → PCU 17:38 → ICU 07-12 10:13
PROVIDERS: Specialist; Emergency Provider Emergency Medicine; Family Provider Family Medicine; PCP Family Medicine; Visit Provider Hospitalist
DX: I21.4 Non-ST elevation (NSTEMI) myocardial infarction (principal); L76.32 Postprocedural hematoma of skin and subcutaneous tissue following other procedure; I10 Essential (primary) hypertension; Z86.79 Personal history of other diseases of the circulatory system; I25.10 Atherosclerotic heart disease of native coronary artery without angina pectoris; Y84.0 Cardiac catheterization as the cause of abnormal reaction of the patient, or of later complication, without mention of misadventure at the time of the procedure; D64.9 Anemia, unspecified
CPT/HCPCS: 36415; 71045; 71275; 80048; 80053; 80061; 84484; 85025; 85027; 85347; 85379; 92928; 92978; 93005; 93306; 93458; 99152; 99153; 99285; J7030; J7040; Q9957; Q9967; A4216; C1753; C1769; C1874; C1887; C1894; C9600

== ENCOUNTER → 2021-02-19 09:59 | Outpatient (CLI) | payer MEDICARE, SELFPAY ==
[2021-02-19 09:17] VITALS: BMI 30.4
[2021-02-19 12:31] LABS: ALB/GLOB Ratio 0.9 RATIO (0.9-2.4); AST(SGOT) 19 U/L (15-37); Alanine Aminotransfer ALT/SGPT 25 U/L (13-56); Albumin, Serum 3.7 g/dL (3.2-5.0); Alkaline Phosphatase 114 U/L (45-117); Anion Gap 3 (5-15); BUN 16 mg/dL (7-18); BUN/Creat Ratio 17.8 RATIO (10-20); Calcium,Total 9.3 mg/dL (8.5-10.1); Chloride 100 mmol/L (98-107); Cholesterol 122 mg/dL (200); EST Glomerular Filtration Rate 64 mL/min (>60); Est Glom Filt Rate - Afr Amer 77 mL/min (>60); Glucose 101 mg/dL (74-106); High Density Lipoprotein 39 mg/dL; Protein, Total 7.7 g/dL (6.4-8.2); Sodium Level 135 mmol/L (136-145); Triglycerides 97 mg/dL; Very Low Density Lipoprotein 19 mg/dL (5-40)
== END ==
PROVIDERS: PCP Family Medicine; Referring Provider Family Medicine; Visit Provider Family Medicine
DX: I10 Essential (primary) hypertension (principal)
CPT/HCPCS: 36415; 80053; 80061

== ENCOUNTER 2021-12-01 14:25 | Outpatient (CLI) | payer MEDICARE, SELFPAY ==
[2021-12-01 15:15] LABS: Hematocrit 41.6 % (37-47); Mean Corp Hgb Conc 33.7 g/dL (32-36); Mean Corpuscular Hgb 31.4 pg (27.0-32.0); Mean Corpuscular Volume 93.3 fL (81-99); Mean Platelet Vol. 10.6 fl (6.2-12.0); Platelet Count 202 K/mm3 (150-450); RBC Distribution Width CV 12.5 % (11.6-14.6); RBC Distribution Width SD 43.3 fl (35.1-43.9); Red Blood Count 4.46 M/mm3 (4.2-5.4); White Blood Count 5.1 K/mm3 (4.4-11.0)
== END 2021-12-01 23:59 | disposition short-term general hospital (02) ==
PROVIDERS: PCP Family Medicine; Visit Provider Family Medicine
DX: I49.3 Ventricular premature depolarization (principal)
CPT/HCPCS: 36415; 85027

== ENCOUNTER 2022-02-24 05:56 | Outpatient (CLI) | payer MEDICARE, SELFPAY ==
--- NOTE | 2022-02-24 06:13 | ECHOD_ITS ---
Reason For Study: Syncope Procedure This was a 2D Doppler, Color Flow transthoracic echocardiogram. The exam was of adequate technical quality. Exam performed in department. Left Ventricle Normal LV size. Left ventricular systolic function is normal. The estimated ejection fraction is 60 %. No regional wall motion abnormalities noted. Right Ventricle Normal RV size. Normal systolic function. Atria The left atrium is mildly enlarged. Normal right atrium. No doppler evidence for ASD. Mitral Valve There is no mitral annular calcification. The mitral valve chordae are thickened and/or calcified. Mild (1+) eccentric mitral valve insufficiency. Tricuspid Valve Normal tricuspid valve. Mild tricuspid valve insufficiency. Right ventricular systolic pressure estimated to be 41 mmHg. Aortic Valve Trisinus/trileaflet aortic valve. Mild diffuse aortic valve thickening. Pulmonic Valve The pulmonic valve is not well visualized. Mild (1+) pulmonic valve insufficiency. Great Vessels Normal sized aortic root. Pericardium/Pleural No pericardial effusion. MMode/2D Measurements & Calculations LVIDd: 3.6 cm IVSd: 1.2 cm Ao root diam: 3.0 cm LVIDs: 2.1 cm LVPWd: 1.1 cm RVDd: 2.9 cm FS: 42.5 % LAV(MOD-bp): 45.2 ml LVAd ap4: 20.3 cm2 LVAd ap2: 20.2 cm2 LAV(MOD-bp) Indexed: 27.1 ml/m2 LVLd ap4: 6.8 cm LVLd ap2: 6.4 cm LAV(MOD-sp2): 45.0 ml EDV(MOD-sp4): 50.6 ml EDV(MOD-sp2): 54.9 ml LAV(MOD-sp4): 45.1 ml EDV(sp4-el): 51.2 ml EDV(sp2-el): 54.0 ml LVAs ap4: 10.4 cm2 LVAs ap2: 11.5 cm2 LVLs ap4: 6.0 cm LVLs ap2: 5.6 cm ESV(MOD-sp4): 15.7 ml ESV(MOD-sp2): 22.6 ml ESV(sp4-el): 15.5 ml ESV(sp2-el): 20.0 ml EF(MOD-sp4): 69.0 % EF(MOD-sp2): 58.8 % EF(sp4-el): 69.7 % SV(MOD-sp4): 34.9 ml SV(MOD-sp2): 32.3 ml SV(sp4-el): 35.7 ml LA dimension(2D): 3.8 cm LA A4 area: 17.6 cm2 RA A4 area: 16.1 cm2 Doppler Measurements & Calculations MV E max boni: 126.1 cm/sec Lat Peak E' Boni: 8.9 cm/sec Med Peak E' Boni: 5.0 cm/sec MV A max boni: 90.7 cm/sec E/E' lat: 14.2 E/E' med: 25.0 MV E/A: 1.4 Ao V2 max: 141.1 cm/sec LV V1 max: 109.9 cm/sec PA V2 max: 102.5 cm/sec Ao max P.0 mmHg LV V1 max P.8 mmHg TR max boni: 307.3 cm/sec TR max P.8 mmHg ECHO/Echo Complete Interpretation Summary Left ventricular systolic function is normal. The estimated ejection fraction is 60 %. The left atrium is mildly enlarged. The mitral valve chordae are thickened and/or calcified. Mild (1+) eccentric mitral valve insufficiency. Mild tricuspid valve insufficiency. Mild diffuse aortic valve thickening. Mild (1+) pulmonic valve insufficiency. Right ventricular systolic pressure estimated to be 41 mmHg. Transmitral diastolic flow velocities suggest diastolic dysfunction (pseudonorm al pattern). Ordering Physician: Aman Sharpe Referring Physician: Estiven Gutierrez M.D. Performed By: Ambar Osullivan RDCS
[2022-02-24 07:51] LABS: AST(SGOT) 22 U/L (15-37); Alanine Aminotransfer ALT/SGPT 23 U/L (13-56); Albumin, Serum 3.6 g/dL (3.2-5.0); Alkaline Phosphatase 107 U/L (45-117); Anion Gap 6 (5-15); BUN 14 mg/dL (7-18); BUN/Creat Ratio 15.4 RATIO (10-20); Bilirubin, Direct 0.32 mg/dL (0.00-0.30); Calcium,Total 9.2 mg/dL (8.5-10.1); Chloride 101 mmol/L (98-107); Cholesterol 103 mg/dL (200); Creatinine, Serum 0.91 mg/dL (0.55-1.02); EST Glomerular Filtration Rate 62 mL/min (>60); Est Glom Filt Rate - Afr Amer 76 mL/min (>60); Globulin 3.8 g/dL (2.2-4.2); Glucose 106 mg/dL (74-106); High Density Lipoprotein 44 mg/dL; Magnesium 2.1 mg/dL (1.6-2.6); Potassium 3.3 mmol/L (3.5-5.1); Protein, Total 7.4 g/dL (6.4-8.2); Sodium Level 140 mmol/L (136-145); Thyroid Stim Hormone (TSH) 2.63 uIU/mL (0.358-3.74); Triglycerides 67 mg/dL; Very Low Density Lipoprotein 13 mg/dL (5-40)
--- NOTE | 2022-02-24 13:20 | STRESSREP ---
Stress Test Report Date: 02-24-2022 Procedure: Pharmacologic stress nuclear imaging study Indications: Chest pain; CAD; PCI; PAF Consent: Per the patient Procedure: The patient underwent pharmacologic (Regadenoson 0.4mg ) evaluation with a peak heart rate of 90 beats per minute (65%predicted maximal heart rate) and a peak blood pressure of 130/76 mmHg. The baseline ECG demonstrated normal sinus rhythm; poor R wave progression. The peak pharmacologic ECG demonstrated no obvious ECG changes. There was a rare PVC during recovery. There was no complaint of chest discomfort during pharmacologic infusion or recovery. The examination was discontinued secondary to completion of protocol. Impression: 1. Pharmacologic (Regadenoson) evaluation 2. Peak pharmacologic ECG with no obvious ECG changes. 3. There was a rare PVC during recovery. 4. Nuclear images pending Myocardial perfusion imaging study: Technique: The patient was injected with 11.6 millicuries of technetium 99m Cardiolite and subsequently rest SPECT Cardiolite nuclear imaging was obtained in the horizontal long, vertical long, and short axis views. The patient underwent pharmacologic (Regadenoson) evaluation with a peak heart rate of 90 beats per minute (65% percent predicted maximal heart rate) and a peak blood pressure of 130/70 mmHg. The patient was injected with 33.4 millicuries of technetium 99m Cardiolite and subsequently stress SPECT Cardiolite nuclear imaging was obtained in the horizontal long, vertical long, and short axis views. A gated Cardiolite study at peak stress was obtained. Interpretation: Rest and stress SPECT Cardiolite nuclear imaging status post realignment, normalization, and attenuation correction demonstrate relative uniform tracer uptake and myocardial perfusion appearing within normal limits. There is end systolic thickening and brightening. The gated Cardiolite study demonstrates myocardial thickening and inward wall motion. The reported LVEF is 81%. Impression: 1. Rest and stress SPECT Cardiolite nuclear imaging demonstrate relative uniform tracer uptake and myocardial perfusion appearing within normal limits. 2. The gated Cardiolite study reports an LVEF of 81%. This note was generated with [employer] software. It may contain incorrect words, spelling, and punctuation that were not noted in checking the note before signing.
== END 2022-02-24 23:59 | disposition home or self-care (01) ==
PROVIDERS: PCP Family Medicine; Referring Provider Internal Medicine Cardiovascular Disease; Visit Provider Internal Medicine Cardiovascular Disease
DX: I25.10 Atherosclerotic heart disease of native coronary artery without angina pectoris (principal); I48.0 Paroxysmal atrial fibrillation; Z95.5 Presence of coronary angioplasty implant and graft; R55 Syncope and collapse; I10 Essential (primary) hypertension
CPT/HCPCS: 36415; 78452; 80048; 80061; 80076; 83735; 84443; 93017; 93225; 93226; 93306; A9500; A4216; J2785

== ENCOUNTER → 2022-03-10 | Outpatient (CLI) | payer MEDICARE, SELFPAY ==
[2022-03-10 12:26] LABS: Anion Gap 0 (5-15); BUN 12 mg/dL (7-18); BUN/Creat Ratio 14.9 RATIO (10-20); Calcium,Total 9.4 mg/dL (8.5-10.1); Chloride 103 mmol/L (98-107); Creatinine, Serum 0.81 mg/dL (0.55-1.02); EST Glomerular Filtration Rate 72 mL/min (>60); Est Glom Filt Rate - Afr Amer 87 mL/min (>60); Glucose 103 mg/dL (74-106); Potassium 3.9 mmol/L (3.5-5.1); Sodium Level 138 mmol/L (136-145)
== END | disposition home or self-care (01) ==
PROVIDERS: PCP Family Medicine; Visit Provider Internal Medicine Cardiovascular Disease
DX: I48.0 Paroxysmal atrial fibrillation (principal); I25.10 Atherosclerotic heart disease of native coronary artery without angina pectoris; E87.6 Hypokalemia
CPT/HCPCS: 36415; 80048

== ENCOUNTER 2022-08-27 14:05 | Inpatient (IN) | payer MEDICARE, SELFPAY ==
[2022-08-27] VITALS (12 sets, daily range): BP systolic 139–174; BP diastolic 76–120; PULSE 87–120; RESP 16–25; TEMP 36.5–37; O2SAT 86–99; BMI 31.3; BMI 30.6
--- NOTE | 2022-08-27 14:18 | EDS_ITS ---
HPI History of Present Illness Chief Complaint: General Illness Narrative Narrative: 82-year-old female with PMH of HTN, CAD with stent, Radha tim. presents with 1 month of hot and cold flashes sometimes with palpitations that occur at night while in bed. states she will ask for the fan and throw off the covers. During the day she has no symptoms and has been functioning normally. When her daughter visited today and learned of the symptoms she was concerned and brought her for evaluation. She states when she had 1 cardiac stent placed in 2019 she had similar symptoms but also had vomiting at that time which she does not have now. Patient has no complaints of shortness of breath or chest pain. She has no fever or URI symptoms. [facility] Medical History (Updated 08/27/22 @ 15:30 by AMINTA Schafer) A-fib Acquired dysplasia of left hip Anemia Arthritis Atherosclerotic heart disease of [place] coronary artery without angina pectoris Cataracts, bilateral Chest pain Ectopic beat, ventricular Essential hypertension History of kidney stones History of pneumonia NSTEMI (non-ST elevated myocardial infarction) PAF (paroxysmal atrial fibrillation) Seasonal allergies Home Medications cinnamon bark 500 mg capsule (Cinnamon) 500 mg PO BID supplement 03/13/19 [History Last Taken 07/11/19] cranberry 400 mg capsule 400 mg PO DAILY supplement 03/13/19 [History Last Taken 07/11/19] omega-3 fatty acids 1,000 mg capsule (Fish Oil Concentrate) 1,000 mg PO DAILY supplement 03/13/19 [History Last Taken 07/11/19] aspirin 81 mg tablet,delayed release 81 mg PO QHS Heart [facility] . 07/11/19 [History Last Taken 07/11/19] cyanocobalamin (vitamin B-12) 1,000 mcg tablet,extended release 1,000 mcg PO DAILY 05/12/20 [History Last Taken Unknown] magnesium oxide 400 mg PO QAM 03/02/21 [History Last Taken Unknown] donepezil 10 mg tablet 10 mg PO QHS Memory #90 tabs 12/30/21 [Rx Last Taken Unknown] metoprolol succinate 25 mg tablet,extended release 24 hr 25 mg PO BID Blood pressure #180 tabs 12/30/21 [Rx Last Taken Unknown] potassium chloride 20 mEq tablet,extended release 20 meq PO DAILY #90 tabs 03/10/22 [Rx Last Taken Unknown] atorvastatin 40 mg tablet 40 mg PO DAILY 04/14/22 [History Last Taken Unknown] lisinopril 10 mg-hydrochlorothiazide 12.5 mg tablet 1 tab PO DAILY #90 tabs 07/21/22 [Rx Last Taken Unknown] Allergy/AdvReac Type Severity Reaction Status Date / Time piroxicam [From Feldene] AdvReac Unknown Unknown Verified 08/27/22 14:09 adhesive AdvReac NEEDS Verified 08/27/22 14:09 FOLLOW-UP Family History Other Arthritis Cancer Surgical History History of carpal tunnel release History of section Presence of stent in coronary artery (~07/12/19) Social History Smoking Status: Never smoker alcohol intake: never substance use type: does not use what type of physical activity do you participate in: none ROS ROS ED ROS Narrative Constitutional: Negative for fever, chills, malaise. Eyes: Negative for visual change. ENT: Negative for sore throat, ear pain, rhinorrhea. CVS: Negative for palpitations, chest pain, syncope. Respiratory: Negative for shortness of breath, cough, orthopnea. GI: Negative for abdominal pain, nausea, vomiting, diarrhea, constipation, melena, hematochezia. : Negative for dysuria, hematuria or frequency. Neuro: Negative for headache, motor/sensory dysfunction. Skin: Negative for rash, abscess, or wound. Musc: Negative for joint pain, swelling, trauma. Heme: Negative for easy bruising, bleeding, lymphadenopathy. EXAM Physical Exam Narrative Exam Narrative: CONST: Patient sitting in no acute distress. EYES: Normal inspection. ENT: Normal inspection, moist mucous membranes. NECK: Normal inspection. RESP: No respiratory distress, CTAB. CVS: Regular rate and rhythm, no murmur, no gallop. ABD: Soft and nontender, no guarding or rebound, nondistended. SKIN: Color normal, no rash, warm, dry, intact. EXTREMITIES: Normal appearance, no pedal edema. NEURO: Oriented x4. PSYCH: Normal affect. Const Vital Signs: 08/27/22 14:06 08/27/22 14:35 08/27/22 14:36 Temperature 98.6 F Temperature Source Temporal Pulse Rate 110 H Respiratory Rate 16 Respiratory Pattern Normal Blood Pressure 174/119 H Blood Pressure Mean 137 Pulse Ox 99 92 Oxygen Delivery Method Room Air Room Air MDM MDM MDM Narrative Medical decision making narrative: Patient presents with 1 month of hot and cold flashes sometimes associated with sweats at night. She has no other symptoms. She appears well and nontoxic. She is in A. fib RVR around 110 which is chronic and she is asymptomatic. Overall her medical exam is benign. CBC is unremarkable, BMP shows normal electrolytes with slightly elevated creatinine at 1.2. EKG shows her chronic A. fib at 118 bpm with no acute ischemic changes and troponin is 11. She was treated with IV Cardizem 10 mg with improvement. ED attending interpretation shows normal heart size, no acute infiltrate, edema, or effusion. Radiologist questioned a right middle lobe opacity which may be early infiltrate versus atelectasis. Patient has no cough normal white count so I do not feel this is an acute infiltrate but she can follow-up with her primary care to assure resolution. Lab Data Attestation: I reviewed the patient's lab results. Labs: Laboratory Results - last 24 hr 08/27/22 08/27/22 08/27/22 14:44 14:44 14:44 WBC 6.3 RBC 4.65 Hgb 15.2 H Hct 45.9 MCV 98.7 MCH 32.7 H MCHC 33.1 RDW Std Deviation 48.6 H RDW Coeff of Hafsa 13.4 Plt Count 183 MPV 11.4 Immature Gran % (Auto) 0.300 Neut % (Auto) 60.6 Lymph % (Auto) 27.1 [place] % (Auto) 9.6 Eos % (Auto) 2.1 Baso % (Auto) 0.3 Absolute Neuts (auto) 3.8 Absolute Lymphs (auto) 1.70 Nucleated RBC % 0 Sodium 141 Potassium 4.2 Chloride 105 Carbon Dioxide 31.0 Anion Gap 5 BUN 13 Creatinine 1.20 H Estim Creat Clear Calc 38.73 Est GFR (MDRD) Af Amer 55 L Est GFR (MDRD) Non-Af 45 L BUN/Creatinine Ratio 10.8 Glucose 127 H Calcium 9.4 Troponin I High Sens 11 Urine Color Yellow Urine Clarity Sl. Cloudy Urine pH 7.0 Ur Specific [place] 1.005 Urine Protein Negative Urine Glucose (UA) Normal Urine Ketones Negative Urine Occult Blood Negative Urine Nitrite Negative Urine Bilirubin Negative Urine Urobilinogen Normal Ur Leukocyte Esterase 25 H Urine RBC 0 SEEN Urine WBC 0-5 SEEN Ur Squamous Epith Cells 0-5 SEEN Urine Bacteria 0 SEEN Urine Mucus 0 SEEN Radiography Diagnostic Testing: Clinical Impression(s) from Imaging Studies Chest X-Ray 08/27/22 14:46 IMPRESSION: Right middle lobe opacification suggests early infiltrate or atelectasis. Follow-up recommended to assure resolution Electronically Signed: Devin Guillermo MD at 15:09 EDT , ED attending interpretation shows normal heart size, no acute infiltrate, edema, or effusion. EKG Initial EKG: Attestation: I personally reviewed and interpreted this EKG as follows: Interpretation: No Acute Injury Pattern Comments: A fib RVR at 118 bpm, no acute ischemic changes Discharge Plan Triage Chief Complaint: General Illness ED Midlevel Provider: María Toledo ED Provider: Guy Brown Dx/Rx/DC Orders Clinical Impression: Hot flashes, Atrial fibrillation with RVR Instructions: ED AFIB Prescriptions: No Action cinnamon bark [Cinnamon] 500 mg capsule 500 mg PO BID cranberry 400 mg capsule 400 mg PO DAILY omega-3 fatty acids [Fish Oil Concentrate] 1,000 mg capsule 1,000 mg PO DAILY cyanocobalamin (vitamin B-12) 1,000 mcg tablet extended release 1,000 mcg PO DAILY magnesium oxide 400 mg magnesium tablet 400 mg PO QAM metoprolol succinate 25 mg tablet extended release 24 hr 25 mg PO BID Qty: 180 3RF donepezil 10 mg tablet 10 mg PO QHS Qty: 90 2RF atorvastatin 40 mg tablet 40 mg PO DAILY aspirin 81 MG tablet,delayed release (DR/EC) 81 mg PO QHS potassium chloride 20 mEq tablet extended release 20 meq PO DAILY Qty: 90 3RF lisinopril-hydrochlorothiazide 10-12.5 mg tablet 1 tab PO DAILY Qty: 90 3RF Primary Care Provider: John Gutierrez Referrals: John Gutierrez, DO [Primary Care Provider] - Disposition Disposition: Home, Self Care
--- NOTE | 2022-08-27 14:18 | EKG12_ITS ---
Test Reason : GENERAL ILLNESS Blood Pressure : / mmHG Vent. Rate : 118 BPM Atrial Rate : 000 BPM P-R Int : 000 ms QRS Dur : 074 ms QT Int : 330 ms P-R-T Axes : 000 -23 033 degrees QTc Int : 462 ms Atrial fibrillation /Flutter with rapid ventricular response Leftward axis Poor R wave progression Abnormal ECG Confirmed by FELISA MARIA, ALEXIS ([id number]), health editor SKINNY OREILLY ([id number]) on 08/31/2022 9:40:52 AM Referred By: Confirmed By:ALEXIS ROBERTO MD
[2022-08-27] MEDS: Aspirin 81 MG TAB.CHEW 324 MG PO (14:37)
--- NOTE | 2022-08-27 14:46 | RAD_ITS ---
STUDY: X-RAY CHEST REASON FOR EXAM: Female, 82 years old. Chest pain TECHNIQUE: Single AP portable view of the chest. COMPARISON: 07/11/2019 FINDINGS: EKG leads overlie the chest in stable elevation of the right hemidiaphragm Lungs are expanded, increase in opacification in the right cardiophrenic angle compared to the previous study concerning for early right middle lobe infiltrate or atelectasis. No demonstrated effusions. Normal size heart. Normal mediastinum and emigdio. Normal visualized pulmonary arteries. There is atherosclerotic calcification of the aortic arch with tortuosity. There are diffuse degenerative changes of the visualized thoracic spine. There is degenerative osteoarthritis of the bilateral shoulders. Old healed right humeral fracture There is no demonstrated abnormality of the visualized soft tissue structures of the upper abdomen. RAD/Chest 1 View (Portable) IMPRESSION: Right middle lobe opacification suggests early infiltrate or atelectasis. Follow-up recommended to assure resolution Electronically Signed: Devin Guillermo MD at 15:09 EDT ,
[2022-08-27 14:48] LABS: Bacteria 0 SEEN /hpf (None Seen); Mucous, Urine 0 SEEN /hpf (<or=2+); Red Blood Cells-Urine 0 SEEN /hpf (0-5)
[2022-08-27 14:50] LABS: Absolute Neutrophil Count 3.8 X10^3/uL (2.0-7.7); Basophil# 0.02 X10^3/uL; Basophil% 0.3 % (0-1); Eosinophil# 0.13 X10^3/uL; Eosinophils% 2.1 % (0-5); Hematocrit 45.9 % (37-47); Hemoglobin 15.2 g/dL (12.0-15.0); Lymphocyte % 27.1 % (19-41); Mean Corp Hgb Conc 33.1 g/dL (32-36); Mean Corpuscular Hgb 32.7 pg (27.0-32.0); Mean Corpuscular Volume 98.7 fL (81-99); Mean Platelet Vol. 11.4 fl (6.2-12.0); Monocyte% 9.6 % (0-10); NRBC Flagged by Analyzer 0 % (0-5); Neutrophil # 3.81 X10^3/uL (2.7-7.7); Neutrophil % 60.6 % (47-70); Platelet Count 183 K/mm3 (150-450); RBC Distribution Width CV 13.4 % (11.6-14.6); RBC Distribution Width SD 48.6 fl (35.1-43.9); Red Blood Count 4.65 M/mm3 (4.2-5.4); White Blood Count 6.3 K/mm3 (4.4-11.0)
[2022-08-27 15:01] LABS: Color, Urine Yellow (Yellow); Glucose, Dipstick Normal (Normal); Ketone-Dipstick Negative (Negative); Leukocyte Esterase-Dipstick 25 /ul (Negative); Nitrite-Dipstick Negative (Negative); Occult Blood-Urine Negative /ul (Negative); Protein-Dipstick Negative (Negative); Specific Gravity, Urine 1.005 (1.002-1.030); Urine Bilirubin Dipstick Negative (Negative); Urine Clarity Sl. Cloudy (Clear); Urine Urobilinogen Normal (Normal)
[2022-08-27 15:09] LABS: Squamous Epithelial Cells - UA 0-5 SEEN /hpf (5-10); White Blood Cells 0-5 SEEN /hpf (0-5)
[2022-08-27 15:10] LABS: Anion Gap 5 (5-15); BUN 13 mg/dL (7-18); BUN/Creat Ratio 10.8 RATIO (10-20); Calcium,Total 9.4 mg/dL (8.5-10.1); Chloride 105 mmol/L (98-107); EST Glomerular Filtration Rate 45 mL/min (>60); Est Glom Filt Rate - Afr Amer 55 mL/min (>60); Estimated Creatinine Clearance 38.73 ml/min; Glucose 127 mg/dL (74-106); Potassium 4.2 mmol/L (3.5-5.1); Sodium Level 141 mmol/L (136-145); Troponin-I HS (w/2H Reflex) 11 pg/mL (3.0-54.0)
[2022-08-27] MEDS: dilTIAZem 25 MG/5 ML Vial 10 MG IV BOLUS (15:39)
--- NOTE | 2022-08-27 16:17 | PCM.HP.STD ---
HPI - General General Date of Admission: 08/27/22 Date of Service: 08/27/22 Chief Complaint: Dyspnea and hypoxia on exertion, A. fib with RVR HPI Narrative MARTHA EMERY, is a 82 F was brought to ED by daughter and for evaluation of general illness not feeling good hot and cold flashes and palpitation at night. Patient states she feels good during daytime but she gets short of breath on palpitation. She feels warm during nighttime. Denies any cough but she has chronic sinusitis with sinus drainage/postnasal drainage. No sore throat. She has not been vaccinated with flu and pneumonia or COVID-vaccine. She was given Cardizem 10 mg IV with improvement in heart rate. She has history of recurrent pneumonia in the past last one 5 years ago. Chest x-ray shows individually reviewed shows right middle lobe consolidation/early infiltrate. Twelve-lead EKG individually reviewed shows A. fib RVR at 118 bpm, QTC 462 ms. First troponin normal. In ED, she gets short of breath, hypoxic, 68% on room air, as per ER physician but not documented and heart rate goes 120-140 but not on exertion therefore getting admitted. [facility] Medical History A-fib Acquired dysplasia of left hip Anemia Arthritis Atherosclerotic heart disease of [place] coronary artery without angina pectoris Cataracts, bilateral Chest pain Ectopic beat, ventricular Essential hypertension History of kidney stones History of pneumonia Humerus fracture NSTEMI (non-ST elevated myocardial infarction) PAF (paroxysmal atrial fibrillation) Seasonal allergies Home Medications cinnamon bark 500 mg capsule (Cinnamon) 500 mg PO BID supplement 03/13/19 [History Last Taken 08/27/22] cranberry 400 mg capsule 400 mg PO DAILY supplement 03/13/19 [History Last Taken 08/27/22] aspirin 81 mg tablet,delayed release 81 mg PO QHS Heart [facility] . 07/11/19 [History Last Taken 08/27/22] cyanocobalamin (vitamin B-12) 1,000 mcg tablet,extended release 1,000 mcg PO DAILY 05/12/20 [History Last Taken 08/27/22] magnesium oxide 400 mg PO DAILY 03/02/21 [History Last Taken 08/27/22] donepezil 10 mg tablet 10 mg PO QHS Memory #90 tabs 12/30/21 [Rx Last Taken 08/26/22] metoprolol succinate 25 mg tablet,extended release 24 hr 25 mg PO BID Blood pressure #180 tabs 12/30/21 [Rx Last Taken 08/27/22] atorvastatin 40 mg tablet 40 mg PO DAILY 04/14/22 [History Last Taken 08/27/22] lisinopril 10 mg-hydrochlorothiazide 12.5 mg tablet 1 tab PO DAILY #90 tabs 07/21/22 [Rx Last Taken 08/27/22] FACTOR 5 MTV 1 tab PO/SL BID SUPPLEMENT 08/27/22 [History Last Taken 08/27/22] ascorbic acid (vitamin C) 500 mg tablet 500 mg PO DAILY SUPPLEMETN 08/27/22 [History Last Taken 08/27/22] cod liver oil 1 cap PO DAILY SUPPLEMENT 08/27/22 [History Last Taken 08/27/22] potassium 99 mg tablet 99 mg PO DAILY SUPPLEMENT 08/27/22 [History Last Taken 08/26/22] turmeric root extract 500 mg capsule 500 mg PO DAILY SUPPLEMENT 08/27/22 [History Last Taken 08/27/22] Allergy/AdvReac Type Severity Reaction Status Date / Time piroxicam [From Feldene] AdvReac Unknown Unknown Verified 08/27/22 14:09 adhesive AdvReac NEEDS Verified 08/27/22 14:09 FOLLOW-UP Family History Other Arthritis Cancer Surgical History History of carpal tunnel release History of section Presence of stent in coronary artery (~07/12/19) Social History Smoking Status: Never smoker alcohol intake: never substance use type: does not use what type of physical activity do you participate in: none ROS ROS Narrative Constitutional: Reports fatigue and weakness. Feeling cold and hot sensation. HEENT: Mild headache, sinus drainage. Reports systems reviewed and no addt'l complaints, except as documented Respiratory/Chest: Denies chest pain/pressure or tightness. Rest admission HPI Gastrointestinal: Denies coffee ground emesis, hematemesis or vomiting Genitourinary: Denies burning urination or new urinary tract symptoms Musculoskeletal: Denies joint pain and limited range of motion Neurologic: Denies seizure-like activity skin: Small redness over right leg. Itching Endocrinology: Reports systems reviewed and no addt'l complaints, except as documented Hematologic/Lymphatic: Reports systems reviewed and no addt'l complaints, except as documented Rest 14 ROS are negative except as mentioned in HPI Vital Signs Vital Signs Vital Signs: 08/27/22 14:06 08/27/22 14:35 08/27/22 14:36 Temperature 98.6 F Temperature Source Temporal Pulse Rate 110 H Respiratory Rate 16 Respiratory Pattern Normal Blood Pressure 174/119 H Blood Pressure Mean 137 Pulse Ox 99 92 Oxygen Delivery Method Room Air Room Air 08/27/22 15:47 Temperature Temperature Source Pulse Rate 104 H Respiratory Rate Respiratory Pattern Blood Pressure 140/99 H Blood Pressure Mean 112 Pulse Ox Oxygen Delivery Method Weight Weight: 155 lb Body Mass Index (BMI) 31.3 Physical Exam Narrative Physical exam General: Alert, Oriented x3, Cooperative HEENT: Atraumatic, PERRLA, EOMI, Normocephalic Oral: Oral mucosa dry. No Gingival or Mucosal Lesions/ Ulcerations Neck: Supple, No JVD, Negative Carotid Bruits Lungs: Air entry diminished in bilateral lung bases. Coarse crepitation present over right posterior half. Cardiovascular: A. fib, Normal S1, Normal S2, subtle systolic murmur at LLSB Abdomen: Bowel Sounds Present, Soft, Non Tender, Non-Distended : No renal angle tenderness. No suprapubic tenderness. Extremities: No edema, Capillary Refill Less than 3 Seconds Skin: Small area of redness, dry skin over right lateral leg. No tenderness induration. Does not look cellulitis. Musculoskeletal: No Tenderness to Palpation of Joints or Extremities. ROM maintained. Muscle strength 4+/5 at major joints of lower extremities Neurological: Cranial nerves II-XII grossly intact, DTR 2+/4 and Symmetrical, Neuro grossly intact Psych/Mental Status: Normal Affect, Appropriate. Results Lab / Micro Data Result Diagrams: 08/27/22 14:44 08/27/22 14:44 Labs: Laboratory Results - last 24 hr 08/27/22 14:44: WBC 6.3, RBC 4.65, Hgb 15.2 H, Hct 45.9, MCV 98.7, MCH 32.7 H, MCHC 33.1, RDW Std Deviation 48.6 H, RDW Coeff of Hafsa 13.4, Plt Count 183, MPV 11.4, Immature Gran % (Auto) 0.300, Neut % (Auto) 60.6, Lymph % (Auto) 27.1, [place] % (Auto) 9.6, Eos % (Auto) 2.1, Baso % (Auto) 0.3, Absolute Neuts (auto) 3.8, Absolute Lymphs (auto) 1.70, Nucleated RBC % 0 08/27/22 14:44: Sodium 141, Potassium 4.2, Chloride 105, Carbon Dioxide 31.0, Anion Gap 5, BUN 13, Creatinine 1.20 H, Estim Creat Clear Calc 38.73, Est GFR (MDRD) Af Amer 55 L, Est GFR (MDRD) Non-Af 45 L, BUN/Creatinine Ratio 10.8, Glucose 127 H, Calcium 9.4, Troponin I High Sens 11 08/27/22 14:44: Urine Color Yellow, Urine Clarity Sl. Cloudy, Urine pH 7.0, Ur Specific [place] 1.005, Urine Protein Negative, Urine Glucose (UA) Normal, Urine Ketones Negative, Urine Occult Blood Negative, Urine Nitrite Negative, Urine Bilirubin Negative, Urine Urobilinogen Normal, Ur Leukocyte Esterase 25 H, Urine RBC 0 SEEN, Urine WBC 0-5 SEEN, Ur Squamous Epith Cells 0-5 SEEN, Urine Bacteria 0 SEEN, Urine Mucus 0 SEEN Radiology Impression Chest X-Ray 08/27/22 14:46 IMPRESSION: Right middle lobe opacification suggests early infiltrate or atelectasis. Follow-up recommended to assure resolution Electronically Signed: Devin Guillermo MD at 15:09 EDT , Assessment & Plan Assessment/Plan (1) Atrial fibrillation with RVR: (2) Pneumonia: PLAN: Plan This 82-year-old female being admitted for dyspnea and hypoxia on exertion, right middle lobe infiltrate suggestive of pneumonia and mild A. fib with RVR 1. Right middle lobe pneumonia, etiology unclear: Patient is being admitted in PCU as observation. Started on ceftriaxone and Zithromax. COVID-19 PCR and pneumonia work-up ordered. Oxygen therapy as needed. Incentive spirometry, Mucinex and DuoNeb as needed ordered 2. A. fib with RVR mildly precipitated by pneumonia: Heart rate is controlled after 10 mg IV Cardizem. On animal anatomist rate was 88/min still fluctuates 80s? 100s. Metoprolol Succinate 25 mg p.o. twice daily first dose now. Patient not on anticoagulant. Continue baby aspirin. 3. coronary artery disease with MARY BETH to mid LAD in July 2019. Patient has history of vasovagal syncope and hypertension. Last seen in cardiology clinic by Cierra Ayala NP in April 2022. Patient does not have chest pain pressure or tightness. Troponin negative. Patient does not have ACS symptoms. 2D echo reviewed as mentioned below, EF 60% LA mildly enlarged history of chronic HFpEF. Mild MR, mild TR. Pharmacological myocardial perfusion test reported normal in February 2022 4. CKD stage IIIb: Patient creatinine clearance baseline is 40 mill per night. Creatinine runs around 0.8 to 0.9 mg/dL admittingcreatinine 1.2 was slightly elevated than baseline but does not meet criteria for TERA. Patient is on IV fluid Normal saline. 5. Dementia: Patient on Aricept continued. UA LE 25. Patient does not have burning micturition. #6 DVT prophylaxis, high risk: Heparin 5000 subcutaneous every 8 hourly. Living will/advanced directive/end of life care: Patient does have living will or advanced directive. is power of supervisor mixing for health. After discussion of benefits/risks procedures involved with full code, DNR CC arrest and DNR CC, the patient, her and daughter near the bedside opted for full code. Patient does want artificial life support including intubation, tube feed, ventilator and/chest compression, central venous catheter, vasopressor and DC shock if needed Total time spent in [id number] encounter in discussion of advanced directive 16 minutes. Laboratory Results 08/27/22 14:44: WBC 6.3, RBC 4.65, Hgb 15.2 H, Hct 45.9, MCV 98.7, MCH 32.7 H, MCHC 33.1, RDW Std Deviation 48.6 H, RDW Coeff of Hafsa 13.4, Plt Count 183, MPV 11.4, Immature Gran % (Auto) 0.300, Neut % (Auto) 60.6, Lymph % (Auto) 27.1, [place] % (Auto) 9.6, Eos % (Auto) 2.1, Baso % (Auto) 0.3, Absolute Neuts (auto) 3.8, Absolute Lymphs (auto) 1.70, Nucleated RBC % 0 08/27/22 14:44: Sodium 141, Potassium 4.2, Chloride 105, Carbon Dioxide 31.0, Anion Gap 5, BUN 13, Creatinine 1.20 H, Estim Creat Clear Calc 38.73, Est GFR (MDRD) Af Amer 55 L, Est GFR (MDRD) Non-Af 45 L, BUN/Creatinine Ratio 10.8, Glucose 127 H, Calcium 9.4, Troponin I High Sens 11 08/27/22 14:44: Urine Color Yellow, Urine Clarity Sl. Cloudy, Urine pH 7.0, Ur Specific [place] 1.005, Urine Protein Negative, Urine Glucose (UA) Normal, Urine Ketones Negative, Urine Occult Blood Negative, Urine Nitrite Negative, Urine Bilirubin Negative, Urine Urobilinogen Normal, Ur Leukocyte Esterase 25 H, Urine RBC 0 SEEN, Urine WBC 0-5 SEEN, Ur Squamous Epith Cells 0-5 SEEN, Urine Bacteria 0 SEEN, Urine Mucus 0 SEEN Echocardiogram 02/24/2022: Interpretation Summary Left ventricular systolic function is normal. The estimated ejection fraction is 60 %. The left atrium is mildly enlarged. The mitral valve chordae are thickened and/or calcified. Mild (1+) eccentric mitral valve insufficiency. Mild tricuspid valve insufficiency. Mild diffuse aortic valve thickening. Mild (1+) pulmonic valve insufficiency. Right ventricular systolic pressure estimated to be 41 mmHg. Transmitral diastolic flow velocities suggest diastolic dysfunction (pseudonormal pattern) Charges/Coding Visit Charges OBSV E&M: 15940 Initial observation care L3 Procedures Hospitalists Procedures: 37008 Advncd Care Plan 30 Min
[2022-08-27 16:47] LABS: Reflex Troponin-HS? (from REC) Y
[2022-08-27 17:52] LABS: AST(SGOT) 26 U/L (15-37); Alanine Aminotransfer ALT/SGPT 40 U/L (13-56); Albumin, Serum 3.8 g/dL (3.2-5.0); Alkaline Phosphatase 113 U/L (45-117); Bilirubin, Direct 0.31 mg/dL (0.00-0.30); Magnesium 2.2 mg/dL (1.6-2.6); Protein, Total 7.8 g/dL (6.4-8.2); Troponin-I HS 13 pg/mL (3.0-54.0)
[2022-08-27] MEDS: 0.9% Normal Saline 1,000 ML 75 ML IV (18:05)
[2022-08-27] MEDS: Metoprolol(XL)Succ 25 MG Tablet PO (18:12)
[2022-08-27] MEDS: Heparin Injection (Vial) 5,000 UNIT/ML VIAL 5000 UNIT SC ×2 (18:17→21:37)
[2022-08-27 18:53] LABS: M R Staph aureus DNA By PCR Negative (Negative); Probe Check PASS; Specimen Processing Control PASS
[2022-08-27] MEDS: guaiFENesin 1,200 MG Tablet 1200 MG PO (21:37)
[2022-08-27] MEDS: Aspirin E.C. 81 MG Tablet PO (21:37)
[2022-08-27] MEDS: Atorvastatin Calcium 40 MG Tablet PO (21:37)
[2022-08-27] MEDS: Donepezil HCl 10 MG Tablet PO (21:37)
[2022-08-28] VITALS (13 sets, daily range): BP systolic 139–164; BP diastolic 66–101; PULSE 47–87; RESP 16–20; TEMP 36.1–36.9; O2SAT 92–94
[2022-08-28] MEDS: 0.9% Saline Lock 10 ML Syringe IV ×2 (05:23→20:51)
[2022-08-28] MEDS: Heparin Injection (Vial) 5,000 UNIT/ML VIAL 5000 UNIT SC ×3 (05:23→20:51)
[2022-08-28 06:52] LABS: Absolute Lymphocyte Count 1.67 X10^3/uL (0.83-4.51); Basophil# 0.01 X10^3/uL; Basophil% 0.2 % (0-1); Eosinophil# 0.18 X10^3/uL; Eosinophils% 3.4 % (0-5); Hematocrit 43.8 % (37-47); Hemoglobin 14.8 g/dL (12.0-15.0); Lymphocyte # 1.67 X10^3/ul (0.83-4.51); Lymphocyte % 31.5 % (19-41); Mean Corp Hgb Conc 33.8 g/dL (32-36); Mean Corpuscular Volume 97.8 fL (81-99); Mean Platelet Vol. 11.5 fl (6.2-12.0); Monocyte# 0.41 X10^3/uL; Monocyte% 7.7 % (0-10); NRBC Flagged by Analyzer 0 % (0-5); Neutrophil # 3.04 X10^3/uL (2.7-7.7); Neutrophil % 57.2 % (47-70); Platelet Count 160 K/mm3 (150-450); RBC Distribution Width CV 13.5 % (11.6-14.6); RBC Distribution Width SD 48.8 fl (35.1-43.9); Red Blood Count 4.48 M/mm3 (4.2-5.4); White Blood Count 5.3 K/mm3 (4.4-11.0)
[2022-08-28 07:43] LABS: Anion Gap 6 (5-15); BUN 16 mg/dL (7-18); BUN/Creat Ratio 17.9 RATIO (10-20); Calcium,Total 9.2 mg/dL (8.5-10.1); Chloride 107 mmol/L (98-107); EST Glomerular Filtration Rate 64 mL/min (>60); Est Glom Filt Rate - Afr Amer 77 mL/min (>60); Estimated Creatinine Clearance 50.54 ml/min; Glucose 93 mg/dL (74-106); Potassium 3.4 mmol/L (3.5-5.1); Sodium Level 141 mmol/L (136-145); Thyroid Stim Hormone (TSH) 2.65 uIU/mL (0.358-3.74)
[2022-08-28] MEDS: guaiFENesin 1,200 MG Tablet 1200 MG PO ×2 (08:35→20:52)
[2022-08-28] MEDS: Ascorbic Acid 500 MG Tablet PO (08:35)
[2022-08-28] MEDS: Magnesium Chloride 64 MG Delay Rel.Tablet 128 MG PO (08:35)
[2022-08-28] MEDS: Metoprolol(XL)Succ 25 MG Tablet PO ×2 (08:36→20:52)
[2022-08-28] MEDS: Cyanocobalamin 500 MCG Tablet 1000 MCG PO (08:37)
--- NOTE | 2022-08-28 11:00 | CASEMGMT ---
[place] assessment: Face to Face with patient for initial transition planning/care coordination assessment. [place] introduced self and role at [facility], pt voices understanding and consents to assessment. Pt is sitting up in bed in no distress on room air. Pt is A/Ox4 and answers all questions appropriately. Pt's is at bedside during assessment.? Care providers, pharmacy,?and demographics verified/updated. ? Presentation: Pt c/o diaphoresis/palpitations when lying down but is ok when upright-Pt states feels like when she had stent in past Admitting dx: Afib RVR, hypoxia, pna PCP: Matt Specialists: Luz Elena, cardio; neuro in [place] Preferred Pharmacy: [facility] in [place] Insurance: [facility] Prescription Benefit:? HumR Living Will/HPOA: Pt states has LW/HPOA and is aware that they are not on file at [facility]. Pt states her daughter, Christine Rowley, is HPOA. LNOK: Rodrick Carter, ; Christine Rowley, daughter/HPOA Living Arrangements: Pt lives with in 1 story home and states no concerns at home. Pt states her daughter lives across driveway. Transportation: Pt uses [facility] transportation and states they also have a golf cart to use locally. Pt states no transportation concerns. DME/HHC: Pt has the following DME: cane, WW, and shower chair. Pt states has solar power at home and states no need for any further DME. Pt states no preference for home oxygen company if qualifies at discharge. Pt states no hx of HHC or SNF in past. Pt states no concerns with going home at time of discharge. Pt is retired. Pt does not smoke cigarettes or drink ETOH. Pt states no further concerns/needs. CM to follow for any further discharge planning/needs. Advised pt to ask for CM if any further questions/concerns/needs arise, voices understanding. Pt Goal: Home ? Plan[place]
--- NOTE | 2022-08-28 11:07 | PN.HOSP_ITS ---
Subjective Subjective Patient seen and examined. and daughter were by her bedside. She had no complaints this morning. She denied any fever, chills, cough, chest pain, palpitations, dizziness, nausea, vomiting or diarrhea. Review of systems is otherwise negative. Objective Data Objective Data Vital Signs: Vital Signs Temp Pulse Resp BP Pulse Ox O2 Del Method O2 Flow Rate 98.4 F 84 20 H 151/66 H 92 Room Air 2 08/28/22 08:31 08/28/22 08:36 08/28/22 08:31 08/28/22 08:36 08/28/22 08:46 08/28/22 08:46 08/27/22 21:27 Oxygen Flow Rate (L/min) 2 Oxygen Delivery Method Room Air Weight: 151 lb 10.848 oz Body Mass Index (BMI) 30.6 Intake & Output: Intake and Output for Last 24 Hours 08/26/22 08/27/22 08/28/22 23:59 23:59 23:59 Intake Total 305 / 305 1050.00 / 1050.00 Balance 305 / 305 1050.00 / 1050.00 Lab / Micro Data Result Diagrams: 08/28/22 06:10 08/28/22 06:10 Labs: Laboratory Results - last 24 hr 08/27/22 14:44: WBC 6.3, RBC 4.65, Hgb 15.2 H, Hct 45.9, MCV 98.7, MCH 32.7 H, MCHC 33.1, RDW Std Deviation 48.6 H, RDW Coeff of Hafsa 13.4, Plt Count 183, MPV 11.4, Immature Gran % (Auto) 0.300, Neut % (Auto) 60.6, Lymph % (Auto) 27.1, [place] % (Auto) 9.6, Eos % (Auto) 2.1, Baso % (Auto) 0.3, Absolute Neuts (auto) 3.8, Absolute Lymphs (auto) 1.70, Nucleated RBC % 0 08/27/22 14:44: Sodium 141, Potassium 4.2, Chloride 105, Carbon Dioxide 31.0, Anion Gap 5, BUN 13, Creatinine 1.20 H, Estim Creat Clear Calc 38.73, Est GFR (MDRD) Af Amer 55 L, Est GFR (MDRD) Non-Af 45 L, BUN/Creatinine Ratio 10.8, Glucose 127 H, Calcium 9.4, Troponin I High Sens 11 08/27/22 14:44: Urine Color Yellow, Urine Clarity Sl. Cloudy, Urine pH 7.0, Ur Specific [place] 1.005, Urine Protein Negative, Urine Glucose (UA) Normal, Urine Ketones Negative, Urine Occult Blood Negative, Urine Nitrite Negative, Urine Bi lirubin Negative, Urine Urobilinogen Normal, Ur Leukocyte Esterase 25 H, Urine RBC 0 SEEN, Urine WBC 0-5 SEEN, Ur Squamous Epith Cells 0-5 SEEN, Urine Bacteria 0 SEEN, Urine Mucus 0 SEEN 08/27/22 17:05: Magnesium 2.2, Total Bilirubin 0.90, Direct Bilirubin 0.31 H, AST 26, ALT 40, Alkaline Phosphatase 113, Troponin I High Sens 13, Total Protein 7.8, Albumin 3.8, Globulin 4.0 08/27/22 17:10: MRSA (PCR) Negative 08/27/22 17:30: COVID-19 (MEHRAN) Not Detected 08/28/22 06:10: WBC 5.3, RBC 4.48, Hgb 14.8, Hct 43.8, MCV 97.8, MCH 33.0 H, MCHC 33.8, RDW Std Deviation 48.8 H, RDW Coeff of Hafsa 13.5, Plt Count 160, MPV 11.5, Immature Gran % (Auto) 0.000, Neut % (Auto) 57.2, Lymph % (Auto) 31.5, [place] % (Auto) 7.7, Eos % (Auto) 3.4, Baso % (Auto) 0.2, Absolute Neuts (auto) 3.0, Absolute Lymphs (auto) 1.67, Nucleated RBC % 0 08/28/22 06:10: Sodium 141, Potassium 3.4 L, Chloride 107, Carbon Dioxide 28.0, Anion Gap 6, BUN 16, Creatinine 0.90, Estim Creat Clear Calc 50.54, Est GFR (MDRD) Af Amer 77, Est GFR (MDRD) Non-Af 64, BUN/Creatinine Ratio 17.9, Glucose 93, Calcium 9.2, TSH 2.65 Micro: Microbiology 08/27/22 14:44 Urine, Clean Catch Legionella Antigen - Final 08/27/22 14:44 Urine, Clean Catch Streptococcus pneumoniae Antigen (M - Final 08/27/22 17:30 Mucosa - Nose Influenza Types A,B Direct FA (WALLY) - Final Radiography Diagnostic Testing: Radiology Impression Chest X-Ray 08/27/22 14:46 IMPRESSION: Right middle lobe opacification suggests early infiltrate or atelectasis. Follow-up recommended to assure resolution Electronically Signed: Devin Guillermo MD at 15:09 EDT Reading Location ID and State: [facility] / [place] , Service support , Physical Exam Const alert, oriented x3 and no apparent distress HEENT head/scalp atraumatic, moist oral mucous membranes and oropharynx normal Head and Scalp: normocephalic Mouth: oral and palatal mucosa normal Eyes PERRL, EOMs intact bilaterally and conjunctivae normal Neck no lymphadenopathy and supple Resp normal respiratory effort, no retractions, no use of accessory muscles and clear to auscultation bilaterally Cardio S1 normal heart sound, S2 normal heart sound and no murmurs Cardio Narrative: afib, rate controlled GI normal to inspection, nondistended, normoactive bowel sounds, soft to palpation and non-tender Extremity normal to inspection, full ROM and no clubbing, cyanosis or edema Neuro oriented x3, CN's II-XII intact bilaterally, moves all extremities and no focal motor deficits Sensorium / Orientation: awake and alert Speech: speech normal Motor Exam: strength 5/5 throughout Psych affect normal Assessment & Plan Assessment/Plan (1) Pneumonia: (2) Atrial fibrillation with RVR: PLAN: Plan #Community acquired pneumonia * CXR showed right middle lobe pneumonia * on iV ceftriaxone and azithromycin * urine for strep and legionella negative * influenza screen negative * #Afib: * rate controlled now. * Was in afib with RVR on admission. * She does have a history of afib. * family requests cardiology consult; cardiology therefore consulted * last 2D echo was in December 2021 and showed EF of 60% with normal LVSF and RVS of 41mmHg. 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
[2022-08-28] MEDS: Potassium Chloride Oral Tablet 20 MEQ 40 MEQ PO (13:19)
--- NOTE | 2022-08-28 14:12 | PCM.CONS.C ---
Assessment & Plan Assessment/Plan (1) Essential hypertension: (2) Vasovagal syncope: (3) Presence of stent in coronary artery: (4) Atrial fibrillation with RVR: PLAN: 82-year-old patient seen and evaluated today at bedside Presenting symptoms of shortness of breath palpitation She had known history of CAD with prior PCI and stent of LAD in the 19 And she has been seen and followed regularly by her primary gardener florist Dr. Sharpe She does not have any active symptoms of chest pain last echocardiogram Ejection fraction preserved 60%, with mild TR and mild MR. She also been evaluated by stress test which is normal with no evidence of reversible ischemia Cardiac care plan recommendations; 1. Patient has atrial fibrillation with controlled ventricular rate we will continue current treatment CAD with PCI stent of LAD in 2018, using drug-eluting stent. 2. She is on dual antiplatelet therapy with Plavix and aspirin and according to the daughter who is at bedside at time of evaluation she had lightheaded and dizziness And a tendency for fall, patient also had history of vasovagal syncope. Based on that I discussed to follow-up in the office and discussed the long-term need for anticoagulation currently she is only on antiplatelet and she has a risk of of a fall with a risk of bleed. Risk and benefit of anticoagulation and A. fib explained in detail to the family. And from cardiac standpoint no further cardiac evaluation will be required she can follow-up as an outpatient. HPI Consult Data Date of Consult: 10/22/22 HPI Narrative Reason for Consultation: Patient with CAD/A. fib with RVR. HPI Narrative: MARTHA EMERY, is a 82 F who presents, presented with symptoms of chest pain And evaluated in the ER by a series of cardiac biomarkers with high sensitive troponin which was elevated In addition patient had symptoms of palpitation with shortness of breath On the clinical evaluation patient had underlying CAD with atherosclerotic coronary artery disease in addition to atrial fibrillation with rapid ventricular rate The elevated cardiac biomarker was secondary to non-ST elevation MS. [facility] [place] Medical History A-fib Acquired dysplasia of left hip Anemia Arthritis Atherosclerotic heart disease of [place] coronary artery without angina pectoris Cataracts, bilateral Chest pain Ectopic beat, ventricular Essential hypertension History of kidney stones History of pneumonia Hot flashes Humerus fracture NSTEMI (non-ST elevated myocardial infarction) PAF (paroxysmal atrial fibrillation) Seasonal allergies Vasovagal syncope Home Medications cinnamon bark 500 mg capsule (Cinnamon) 500 mg PO BID supplement 03/13/19 [History Last Taken 09/15/22] aspirin 81 mg tablet,delayed release 81 mg PO QHS [facility] 07/11/19 [History Last Taken 09/15/22] cyanocobalamin (vitamin B-12) 1,000 mcg tablet,extended release 1,000 mcg PO DAILY vitamin 05/12/20 [History Last Taken 09/15/22] donepezil 10 mg tablet 10 mg PO QHS Memory #90 tabs 12/30/21 [Rx Last Taken 09/15/22] atorvastatin 40 mg tablet 40 mg PO DAILY cholesterol 04/14/22 [History Last Taken 09/15/22] lisinopril 10 mg-hydrochlorothiazide 12.5 mg tablet 1 tab PO DAILY #90 tabs 07/21/22 [Rx Last Taken 09/15/22] FACTOR 5 MTV 1 tab PO/SL BID SUPPLEMENT 08/27/22 [History Last Taken 09/15/22] cod liver oil 1 cap PO DAILY SUPPLEMENT 08/27/22 [History Last Taken 09/15/22] quetiapine 25 mg tablet 25 mg PO QHS 09/08/22 [History Last Taken 09/15/22] turmeric root extract 500 mg capsule 1,500 mg PO DAILY SUPPLEMENT 09/10/22 [History Last Taken 09/15/22] magnesium oxide 500 mg tablet 500 mg PO DAILY SUPPLEMENT 09/16/22 [History Last Taken 09/15/22] multivitamin 1 tab PO DAILY SUPPLEMENT 09/16/22 [History Last Taken 09/15/22] potassium chloride 20 mEq tablet,extended release(part/cryst) 20 meq PO DAILY SUPPLEMENT 09/16/22 [History Last Taken 09/15/22] metoprolol succinate 25 mg tablet,extended release 24 hr 12.5 mg PO BID 30 days #30 tabs 09/17/22 [Rx Last Taken Unknown] Allergy/AdvReac Type Severity Reaction Status Date / Time piroxicam [From Feldene] AdvReac Unknown Unknown Verified 09/24/22 09:51 adhesive AdvReac NEEDS Verified 09/24/22 09:51 FOLLOW-UP Family History Other Arthritis Cancer Surgical History History of carpal tunnel release History of section Presence of stent in coronary artery (~07/12/19) Social History Smoking Status: Never smoker alcohol intake: never substance use type: does not use what type of physical activity do you participate in: none ROS ROS Narrative Review of 14 system were unremarkable apart from her current presentation with symptoms of chest pain with a clinical diagnosis of non-ST elevation MS in addition to paroxysmal atrial fibrillation. Physical Exam Cardio Cardio Narrative: Review of cardiac telemetry she had underlying A. fib with controlled ventricular rate Cardiovascular exam S1-S2 is irregular Chest exam is clear to auscultation bilateral. Risk Stratification Risk Stratification Applicable: No Objective Data Vital Signs: Vital Signs Temp Pulse Resp BP Pulse Ox O2 Del Method O2 Flow Rate 98.3 F 76 16 141/101 H 92 Room Air 2 08/28/22 13:05 08/28/22 13:05 08/28/22 13:05 08/28/22 13:05 08/28/22 13:05 08/28/22 13:17 08/27/22 21:27 Oxygen Flow Rate (L/min) 2 Oxygen Delivery Method Room Air Weight: 151 lb 10.848 oz Body Mass Index (BMI) 30.6 Intake & Output: Intake and Output for Last 24 Hours 08/26/22 08/27/22 08/28/22 23:59 23:59 23:59 Intake Total 305 / 305 1545.00 / 1545.00 Balance 305 / 305 1545.00 / 1545.00 Lab / Micro Data Result Diagrams: 08/29/22 05:46 08/29/22 05:46 Labs: Laboratory Results - last 24 hr 08/27/22 14:44: WBC 6.3, RBC 4.65, Hgb 15.2 H, Hct 45.9, MCV 98.7, MCH 32.7 H, MCHC 33.1, RDW Std Deviation 48.6 H, RDW Coeff of Hafsa 13.4, Plt Count 183, MPV 11.4, Immature Gran % (Auto) 0.300, Neut % (Auto) 60.6, Lymph % (Auto) 27.1, [place] % (Auto) 9.6, Eos % (Auto) 2.1, Baso % (Auto) 0.3, Absolute Neuts (auto) 3.8, Absolute Lymphs (auto) 1.70, Nucleated RBC % 0 08/27/22 14:44: Sodium 141, Potassium 4.2, Chloride 105, Carbon Dioxide 31.0, Anion Gap 5, BUN 13, Creatinine 1.20 H, Estim Creat Clear Calc 38.73, Est GFR (MDRD) Af Amer 55 L, Est GFR (MDRD) Non-Af 45 L, BUN/Creatinine Ratio 10.8, Glucose 127 H, Calcium 9.4, Troponin I High Sens 11 08/27/22 14:44: Urine Color Yellow, Urine Clarity Sl. Cloudy, Urine pH 7.0, Ur Specific [place] 1.005, Urine Protein Negative, Urine Glucose (UA) Normal, Urine Ketones Negative, Urine Occult Blood Negative, Urine Nitrite Negative, Urine Bilirubin Negative, Urine Urobilinogen Normal, Ur Leukocyte Esterase 25 H, Urine RBC 0 SEEN, Urine WBC 0-5 SEEN, Ur Squamous Epith Cells 0-5 SEEN, Urine Bacteria 0 SEEN, Urine Mucus 0 SEEN 08/27/22 17:05: Magnesium 2.2, Total Bilirubin 0.90, Direct Bilirubin 0.31 H, AST 26, ALT 40, Alkaline Phosphatase 113, Troponin I High Sens 13, Total Protein 7.8, Albumin 3.8, Globulin 4.0 08/27/22 17:10: MRSA (PCR) Negative 08/27/22 17:30: COVID-19 (MEHRAN) Not Detected 08/28/22 06:10: WBC 5.3, RBC 4.48, Hgb 14.8, Hct 43.8, MCV 97.8, MCH 33.0 H, MCHC 33.8, RDW Std Deviation 48.8 H, RDW Coeff of Hafsa 13.5, Plt Count 160, MPV 11.5, Immature Gran % (Auto) 0.000, Neut % (Auto) 57.2, Lymph % (Auto) 31.5, [place] % (Auto) 7.7, Eos % (Auto) 3.4, Baso % (Auto) 0.2, Absolute Neuts (auto) 3.0, Absolute Lymphs (auto) 1.67, Nucleated RBC % 0 08/28/22 06:10: Sodium 141, Potassium 3.4 L, Chloride 107, Carbon Dioxide 28.0, Anion Gap 6, BUN 16, Creatinine 0.90, Estim Creat Clear Calc 50.54, Est GFR (MDRD) Af Amer 77, Est GFR (MDRD) Non-Af 64, BUN/Creatinine Ratio 17.9, Glucose 93, Calcium 9.2, TSH 2.65 Micro: Microbiology 08/27/22 14:44 Urine, Clean Catch Legionella Antigen - Final 08/27/22 14:44 Urine, Clean Catch Streptococcus pneumoniae Antigen (M - Final 08/27/22 17:30 Mucosa - Nose Influenza Types A,B Direct FA (WALLY) - Final Cardiology Labs/Tests 08/27/22 14:44: WBC 6.3, RBC 4.65, Hgb 15.2 H, Hct 45.9, MCV 98.7, MCH 32.7 H, MCHC 33.1, Plt Count 183, MPV 11.4, Immature Gran % (Auto) 0.300, Neut % (Auto) 60.6, Lymph % (Auto) 27.1, [place] % (Auto) 9.6, Eos % (Auto) 2.1, Baso % (Auto) 0.3, Absolute Neuts (auto) 3.8, Nucleated RBC % 0 08/27/22 14:44: Sodium 141, Potassium 4.2, Chloride 105, Carbon Dioxide 31.0, Anion Gap 5, BUN 13, Creatinine 1.20 H, Est GFR (MDRD) Af Amer 55 L, Est GFR (MDRD) Non-Af 45 L, BUN/Creatinine Ratio 10.8, Glucose 127 H, Calcium 9.4 08/27/22 14:44: Urine Color Yellow, Urine Clarity Sl. Cloudy, Urine pH 7.0, Ur Specific [place] 1.005, Urine Protein Negative, Urine Glucose (UA) Normal, Urine Ketones Negative, Urine Occult Blood Negative, Urine Nitrite Negative, Urine Bilirubin Negative, Urine Urobilinogen Normal, Ur Leukocyte Esterase 25 H, Urine RBC 0 SEEN, Urine WBC 0-5 SEEN 08/27/22 17:05: Magnesium 2.2, Total Bilirubin 0.90, Direct Bilirubin 0.31 H 08/28/22 06:10: WBC 5.3, RBC 4.48, Hgb 14.8, Hct 43.8, MCV 97.8, MCH 33.0 H, MCHC 33.8, Plt Count 160, MPV 11.5, Immature Gran % (Auto) 0.000, Neut % (Auto) 57.2, Lymph % (Auto) 31.5, [place] % (Auto) 7.7, Eos % (Auto) 3.4, Baso % (Auto) 0.2, Absolute Neuts (auto) 3.0, Nucleated RBC % 0 08/28/22 06:10: Sodium 141, Potassium 3.4 L, Chloride 107, Carbon Dioxide 28.0, Anion Gap 6, BUN 16, Creatinine 0.90, Est GFR (MDRD) Af Amer 77, Est GFR (MDRD) Non-Af 64, BUN/Creatinine Ratio 17.9, Glucose 93, Calcium 9.2 Rhythm: EKG: ECHO: Stress Test: Cardiac Cath: PCI: CT Surgery: Holter monitor: EPS: PPM: CXR: Chest CT Scan: Radiography Diagnostic Testing: Radiology Impression Chest X-Ray 08/27/22 14:46 IMPRESSION: Right middle lobe opacification suggests early infiltrate or atelectasis. Follow-up recommended to assure resolution Electronically Signed: Devin Guillermo MD at 15:09 EDT ,
[2022-08-28] MEDS: Aspirin E.C. 81 MG Tablet PO (20:52)
[2022-08-28] MEDS: Donepezil HCl 10 MG Tablet PO (20:52)
[2022-08-28] MEDS: Atorvastatin Calcium 40 MG Tablet PO (20:52)
[2022-08-29] VITALS (10 sets, daily range): BP systolic 92–189; BP diastolic 72–98; PULSE 56–97; RESP 14–20; TEMP 35.8–36.5; O2SAT 90–95
[2022-08-29] MEDS: Labetalol (Prefilled) 20 MG/4 ML 10 MG IV (03:43)
[2022-08-29] MEDS: 0.9% Saline Lock 10 ML Syringe IV (03:43)
[2022-08-29] MEDS: Heparin Injection (Vial) 5,000 UNIT/ML VIAL 5000 UNIT SC (05:52)
[2022-08-29 06:24] LABS: Absolute Lymphocyte Count 1.65 X10^3/uL (0.83-4.51); Absolute Neutrophil Count 2.5 X10^3/uL (2.0-7.7); Basophil# 0.02 X10^3/uL; Basophil% 0.4 % (0-1); Eosinophil# 0.19 X10^3/uL; Hematocrit 41.8 % (37-47); Hemoglobin 14.1 g/dL (12.0-15.0); Lymphocyte # 1.65 X10^3/ul (0.83-4.51); Lymphocyte % 34.7 % (19-41); Mean Corp Hgb Conc 33.7 g/dL (32-36); Mean Corpuscular Hgb 32.9 pg (27.0-32.0); Mean Corpuscular Volume 97.7 fL (81-99); Mean Platelet Vol. 11.4 fl (6.2-12.0); Monocyte# 0.38 X10^3/uL; NRBC Flagged by Analyzer 0 % (0-5); Neutrophil % 52.7 % (47-70); Platelet Count 158 K/mm3 (150-450); RBC Distribution Width CV 13.6 % (11.6-14.6); RBC Distribution Width SD 48.9 fl (35.1-43.9); Red Blood Count 4.28 M/mm3 (4.2-5.4); White Blood Count 4.8 K/mm3 (4.4-11.0)
[2022-08-29 06:48] LABS: Anion Gap 6 (5-15); BUN 12 mg/dL (7-18); BUN/Creat Ratio 13.5 RATIO (10-20); Calcium,Total 8.9 mg/dL (8.5-10.1); Chloride 108 mmol/L (98-107); Creatinine, Serum 0.89 mg/dL (0.55-1.02); EST Glomerular Filtration Rate 65 mL/min (>60); Est Glom Filt Rate - Afr Amer 78 mL/min (>60); Estimated Creatinine Clearance 51.11 ml/min; Glucose 101 mg/dL (74-106); Potassium 3.6 mmol/L (3.5-5.1); Sodium Level 141 mmol/L (136-145)
[2022-08-29] MEDS: guaiFENesin 1,200 MG Tablet 1200 MG PO (09:06)
[2022-08-29] MEDS: Cyanocobalamin 500 MCG Tablet 1000 MCG PO (09:07)
[2022-08-29] MEDS: Metoprolol(XL)Succ 25 MG Tablet PO (09:07)
[2022-08-29] MEDS: Magnesium Chloride 64 MG Delay Rel.Tablet 128 MG PO (09:07)
[2022-08-29] MEDS: Ascorbic Acid 500 MG Tablet PO (09:08)
--- NOTE | 2022-08-29 10:46 | DS.PCM_ITS ---
Providers Date of Admission: 08/28/22 Date of Discharge: 08/29/22 Primary Care Physician: Dr. John Gutierrez, DO Consultations 08/28/22 11:05 Consult: Cardiology Routine Consulting Provider: Cori Kerr Reason for Consult: afib; consult per family request EMERGENT Consult: No MD Notified: Yes Date Notified: 08/28/22 Time Notified: 11:05 Method of Notification: Text Reason For Visit: AFIB WITH RVR, HYPOXIA ON AMBULATION, PNA Diagnosis Discharge Diagnosis (1) Essential hypertension: Status: Chronic Code(s): I10 - Essential (primary) hypertension (2) Vasovagal syncope: Status: Acute Code(s): R55 - Syncope and collapse (3) Presence of stent in coronary artery: Status: Chronic Code(s): Z95.5 - Presence of coronary angioplasty implant and graft (4) Atrial fibrillation with RVR: Status: Acute Code(s): I48.91 - Unspecified atrial fibrillation Plan #Community acquired pneumonia * CXR showed right middle lobe pneumonia * on iV ceftriaxone and azithromycin * urine for strep and legionella negative * influenza screen negative * #Afib: * rate controlled now. * Was in afib with RVR on admission. * She does have a history of afib. * family requests cardiology consult; cardiology therefore consulted * last 2D echo was in December 2021 and showed EF of 60% with normal LVSF and RVS of 41mmHg. 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 07/11/19 cyanocobalamin (vitamin B-12) 1,000 mcg tablet,extended release 1,000 mcg PO DAILY vitamin 05/12/20 magnesium oxide 400 mg PO DAILY supplement 03/02/21 donepezil 10 mg tablet 10 mg PO QHS Memory #90 tabs 12/30/21 metoprolol succinate 25 mg tablet,extended release 24 hr 25 mg PO BID Blood pressure #180 tabs 12/30/21 atorvastatin 40 mg tablet 40 mg PO DAILY cholesterol 04/14/22 lisinopril 10 mg-hydrochlorothiazide 12.5 mg tablet 1 tab PO DAILY #90 tabs 07/21/22 FACTOR 5 MTV 1 tab PO/SL BID SUPPLEMENT 08/27/22 ascorbic acid (vitamin C) 500 mg tablet 500 mg PO DAILY supplement 08/27/22 cod liver oil 1 cap PO DAILY SUPPLEMENT 08/27/22 potassium 99 mg tablet 99 mg PO DAILY SUPPLEMENT 08/27/22 turmeric root extract 500 mg capsule 500 mg PO DAILY SUPPLEMENT 08/27/22 levofloxacin 500 mg tablet 500 mg PO DAILY #5 tabs 08/29/22 Hospital Course Operations None Procedures None Summary of Care Provided Minutes Spent on Discharge: 45 Hospital Course: Patient is an 82-year-old female with a past medical history as outlined was admitted through the ED on 08/27/2022 with a complaint of shortness of breath and generally feeling unwell. She had associated palpitations, and also felt warm at night. She denied any cough and denied any sore throat. On admission she was found to have elevated heart rate. Chest x-ray done showed right middle lobe consolidation. EKG showed A. fib with heart rate of 118. Initial troponin was negative. She was admitted and managed for community-acquired pneumonia and A. fib with RVR. She was given a dose of Cardizem in the ED and heart rate became controlled. She was started on IV ceftriaxone and azithromycin. Her symptoms resolved and she felt much better. Her heart rate remained controlled during admission. Patient and family requested cardiology consult. She was reviewed by cardiology and no changes to treatment were made. Hypoxia resolved and she felt much better. She had a walking pulse ox which showed that she did not require home oxygen. She remained stable and was discharged home on 08/29/2022 on p.o. Levaquin for 5 days for pneumonia treatment. She is follow- up with her primary care doctor and cardiology within 1 to 2 weeks. Patient seen and examined prior to discharge. She had no active complaints and had an uneventful night. Review of systems otherwise negative. Labs and vitals reviewed. Home medication reviewed and reconciled. Physical Exam Const alert, oriented x3 and no apparent distress General Appearance: cooperative and comfortable Orientation / Consciousness: awake Exam Limitations: no limitations HEENT normocephalic, head/scalp atraumatic, hearing grossly normal bilaterally and moist oral mucous membranes Mouth: oral and palatal mucosa normal Eyes EOMs intact bilaterally and conjunctivae normal Neck no lymphadenopathy, supple and no JVD Resp normal respiratory effort, no use of accessory muscles and clear to auscultation bilaterally Cardio regular rate, S1 normal heart sound, S2 normal heart sound and no murmurs Cardio Narrative: afib, rate controlled GI normal to inspection, nondistended, normoactive bowel sounds, soft to palpation, non-tender and non-distended Extremity normal to inspection, full ROM and no clubbing, cyanosis or edema Skin no rashes or lesions noted Neuro oriented x3, CN's II-XII intact bilaterally, moves all extremities and no focal motor deficits Sensorium / Orientation: awake and alert Speech: speech normal Motor Exam: strength 5/5 throughout Psych affect normal Weight / BMI Weight Weight: 151 lb 10.848 oz Body Mass Index (BMI) 30.6 ABG / Lab / Microbiology Data Result Diagrams: 08/29/22 05:46 08/29/22 05:46 Laboratory: Laboratory Results - last 24 hr 08/29/22 05:46: WBC 4.8, RBC 4.28, Hgb 14.1, Hct 41.8, MCV 97.7, MCH 32.9 H, MCH C 33.7, RDW Std Deviation 48.9 H, RDW Coeff of Hafsa 13.6, Plt Count 158, MPV 1 1.4, Immature Gran % (Auto) 0.200, Neut % (Auto) 52.7, Lymph % (Auto) 34.7, [place] % (Auto) 8.0, Eos % (Auto) 4.0, Baso % (Auto) 0.4, Absolute Neuts (auto) 2.5, Absolute Lymphs (auto) 1.65, Nucleated RBC % 0 08/29/22 05:46: Sodium 141, Potassium 3.6, Chloride 108 H, Carbon Dioxide 27.0, Anion Gap 6, BUN 12, Creatinine 0.89, Estim Creat Clear Calc 51.11, Est GFR (MDRD) Af Amer 78, Est GFR (MDRD) Non-Af 65, BUN/Creatinine Ratio 13.5, Glucose 101, Calcium 8.9 Microbiology: Microbiology 08/27/22 14:44 Urine, Clean Catch Legionella Antigen - Final 08/27/22 14:44 Urine, Clean Catch Streptococcus pneumoniae Antigen (M - Final 08/27/22 17:30 Mucosa - Nose Influenza Types A,B Direct FA (WALLY) - Final D/C Instructions Discharge Diet: Low fat / Low cholesterol Discharge Activity: Return to Normal Activity Weight Bearing Status: Weight bearing as tolerated Call your doctor if you observe: Fever of 101 or Higher, Shortness of breath, Dizziness, Swelling in the ankles, Chest pain and Increased palpitations (irregular heartbeat) Meaningful Use Info Meaningful Use Diagnoses (Choose all that apply): None applicable Discharge Plan Admission Admit Date/Time: 08/28/22 10:43 Primary Reason for Your Visit: community acquired pneumonia Attending Provider: Olimpia Johnston Primary Care Provider: John Gutierrez Consulting Providers: Salbador William ; Cori Kerr Instructions Patient Instructions: ED AFIB Discharge Orders/Prescriptions Prescriptions: New levofloxacin 500 mg tablet 500 mg PO DAILY Qty: 5 0RF Continued cinnamon bark [Cinnamon] 500 mg capsule 500 mg PO BID cranberry 400 mg capsule 400 mg PO DAILY cyanocobalamin (vitamin B-12) 1,000 mcg tablet extended release 1,000 mcg PO DAILY magnesium oxide 400 mg magnesium tablet 400 mg PO DAILY metoprolol succinate 25 mg tablet extended release 24 hr 25 mg PO BID Qty: 180 3RF donepezil 10 mg tablet 10 mg PO QHS Qty: 90 2RF atorvastatin 40 mg tablet 40 mg PO DAILY aspirin 81 MG tablet,delayed release (DR/EC) 81 mg PO QHS cod liver oil Capsule 1 cap PO DAILY potassium 99 mg Tablet 99 mg PO DAILY ascorbic acid (vitamin C) 500 mg Tablet 500 mg PO DAILY turmeric root extract 500 mg Capsule 500 mg PO DAILY FACTOR 5 MTV 1 tab PO/SL BID lisinopril-hydrochlorothiazide 10-12.5 mg tablet 1 tab PO DAILY Qty: 90 3RF Referrals / Follow Up: John Gutierrez DO [Primary Care Provider] - Within 2 Weeks Aman Sharpe MD [Med Staff - Active Staff] - Within 2 Weeks Disposition Disposition (needs filled in before D/C Order can be placed): Home, Self Care Charges/Coding Visit Charges Inpatient E&M: 89500 Disch Hosp
== END 2022-08-29 14:19 | disposition home or self-care (01) | DRG 194 ==
LOC: ED 15:36 → PCU 17:02
PROVIDERS: Physician Assistant; Admitting Provider Internal Medicine; Emergency Provider Student in an Organized Health Care Education/Training Program; PCP Family Medicine; Visit Provider Student in an Organized Health Care Education/Training Program
DX: J18.9 Pneumonia, unspecified organism (principal); I13.0 Hypertensive heart and chronic kidney disease with heart failure and stage 1 through stage 4 chronic kidney disease, or unspecified chronic kidney disease; I50.32 Chronic diastolic (congestive) heart failure; I48.20 Chronic atrial fibrillation, unspecified; F03.90 Unspecified dementia, unspecified severity, without behavioral disturbance, psychotic disturbance, mood disturbance, and anxiety; N18.32 Chronic kidney disease, stage 3b; I25.10 Atherosclerotic heart disease of native coronary artery without angina pectoris; E78.5 Hyperlipidemia, unspecified; I25.2 Old myocardial infarction; R09.02 Hypoxemia; Z28.310 Unvaccinated for COVID-19; Z20.822 Contact with and (suspected) exposure to COVID-19; Z79.82 Long term (current) use of aspirin; Z79.899 Other long term (current) drug therapy; Z95.5 Presence of coronary angioplasty implant and graft
CPT/HCPCS: 36415; 71045; 80048; 80076; 81001; 83735; 84443; 84484; 85025; 87040; 87449; 87635; 87641; 87804; 93005; 97162; 97166; 99251; 99285; J7030; A4216; G0463; J0696; U0003; U0005

== ENCOUNTER 2022-09-16 09:46 | Observation (INO) | payer MEDICARE, SELFPAY ==
[2022-09-16] VITALS (13 sets, daily range): BP systolic 109–154; BP diastolic 79–106; PULSE 45–143; RESP 16–24; TEMP 36.4–36.7; O2SAT 90–98; BMI 31.1; BMI 30.9; BMI 29.2
--- NOTE | 2022-09-16 10:13 | CT_ITS ---
STUDY: CTA HEAD AND NECK WITH CONTRAST REASON FOR EXAM: Female, 82 years old. Neuro deficit, acute, stroke suspected RADIATION DOSAGE (If Supplied By Facility): CTDIvol = ( 25 ) mGy, DLP = ( 1164.8 ) mGycm TECHNIQUE: CT angiography was performed with a multi-detector CT scanner. Data acquisition was obtained from the skull base through the vertex following intravenous administration of IV 100mL [id number]-[id number]. MIP images were reconstructed from the axial data set. Post-processing of the angiographic images was performed, with multiplanar reformation and 3D reconstruction. Individualized dose optimization techniques were used for this CT. COMPARISON: No relevant priors. FINDINGS: Normal bilateral petrous carotid arteries. There is calcified plaque formation of the right cavernous carotid artery, without a cross-sectional luminal stenosis. There is calcified plaque formation of the left cavernous carotid artery, without a cross-sectional luminal stenosis. Normal right A1 segments of the anterior cerebral artery. Normal left A1 segments of the anterior cerebral artery. Normal intact anterior communicating artery (ACOM). Normal bilateral A2 segments of the anterior cerebral arteries. Normal right M1 and M2 segments of the middle cerebral arteries, with a normal M1 bifurcation. Normal left M1 and M2 segments of the middle cerebral arteries, with a normal M1 bifurcation. Normal right posterior communicating artery (PCOM). Normal left posterior communicating artery (PCOM). Normal bilateral vertebral arteries. Normal basilar artery with a normal basilar bifurcation. The visualized bilateral superior cerebellar (SCA) arteries are normal. Normal bilateral P1, P2 and visualized P3 segments of the posterior cerebral arteries. There is no demonstrated aneurysm of the [place]. AORTIC ARCH: There is atherosclerotic calcific plaque formation of the aortic arch and great vessels arising from the aortic arch, without a hemodynamically significant stenosis. There is a normal origin of the brachiocephalic, left common carotid, and left subclavian arteries. Atherosclerotic calcific plaques at the origin of the left subclavian artery and right brachiocephalic artery. RIGHT CAROTID ARTERIES: Normal right common carotid artery (CCA). Normal right common carotid bulb. Normal origin of the right internal carotid (ICA) artery without a hemodynamically significant stenosis. Normal visualized cervical portion of the right internal carotid artery. Normal origin of the right external carotid artery (ECA). LEFT CAROTID ARTERIES: Normal left common carotid artery (CCA). Normal left common carotid bulb. There is mild atherosclerotic plaque formation of the origin of the left internal carotid artery with less than 50% cross sectional diameter stenosis. Normal visualized cervical portion of the left internal carotid artery. Normal origin of the left external carotid artery (ECA). VERTEBRAL ARTERIES: Atherosclerotic plaque formation of the vertebral arteries bilaterally. CT/STROKE CTA Head AND Neck W/Con IMPRESSION: Mild plaque formation at the origin of the left internal carotid artery. N.B. : The above Results were Read Back by Sánchez Wilkins MD to Poncho Elizabeth and understanding confirmed on 09/16/2022 10:50:15 (ET). Electronically Signed: Sánchez Wilkins MD at 10:51 EST ,
--- NOTE | 2022-09-16 10:13 | EKG12_ITS ---
Test Reason : NEURO Blood Pressure : / mmHG Vent. Rate : 137 BPM Atrial Rate : 326 BPM P-R Int : 000 ms QRS Dur : 072 ms QT Int : 272 ms P-R-T Axes : 000 -26 044 degrees QTc Int : 410 ms Atrial flutter with variable A-V block Inferior infarct , age undetermined Abnormal ECG Confirmed by KASEY MARIA, JENELLE ([id number]), graphic editor SKINNY OREILLY ([id number]) on 09/21/2022 9:10:45 A M Referred By: Confirmed By:FRANSISCO PARKS MD
--- NOTE | 2022-09-16 10:13 | CT_ITS ---
STUDY: CT HEAD STROKE PROTOCOL W/O CONTRAST INJECTION REASON FOR EXAM: Female, 82 years old. Neuro deficit, acute, stroke suspected RADIATION DOSAGE (If Supplied By Facility): CTDIvol = ( 44.99 ) mGy, DLP = ( 779.24 ) mGycm TECHNIQUE: Transaxial CT imaging of the brain was performed without administration of intravenous contrast material. Individualized dose optimization techniques were used for this CT. COMPARISON: No relevant priors. FINDINGS: Normal soft tissue structures. Normal calvarium. There is mild cerebral atrophy with widening of the extra-axial spaces and ventricular dilatation. There are areas of decreased attenuation within the white matter tracts of the supratentorial brain, consistent with microvascular disease changes. Is evidence of encephalomalacia involving the posterior right parietal occipital lobes. Normal basal ganglia and thalami. Normal brainstem. Normal cerebellum. There is no intracranial hemorrhage. There are no findings of an acute ischemic infarction. Atherosclerotic calcification of the vertebral arteries and cavernous portions of the internal carotid arteries bilaterally. Normal visualized paranasal sinuses. ASPECT score: 10 CT/STROKE Brain/Head without Cont IMPRESSION: Chronic involutional changes of the brain. Encephalomalacia involving the posterior right parietal occipital lobes. N.B. : The above Results were Read Back by Sánchez Wilkins MD to Poncho Elizabeth and understanding confirmed on 09/16/2022 10:33:56 (ET). Electronically Signed: Sánchze Wilkins MD at 10:35 EST ,
--- NOTE | 2022-09-16 10:15 | EDS_ITS ---
HPI <Dr. Poncho Elizabeth, DO - Last Filed: 09/16/22 17:44> History of Present Illness Chief Complaint: Neuro S/Sx Informant: patient, spouse/S.O. and family Onset/Context/Timing Onset: Today Narrative Narrative: Patient presents here with family present concerns for transient stroke symptoms. Last normal 7 AM noted by spouse who is currently present. Reported heard her groaning in the bathroom he went to check on her, she was slumped over off the commode over the tub. He helped her back on the commode she did have a normal bowel movement. However noted slurring of speech. Daughter currently present states she had slurring on the way here. Currently resolved. There was generalized weakness at that time no hemiparesis. No stroke history. Does have history of paroxysmal A. fib on and off for the past 3 years she is on baby aspirin for therapy no other antiplatelets or anticoagulants. Reported was here 2 weeks ago for A. fib with RVR discharged reporting the heart rate was impr dayanna. Patient does have history of mild dementia currently alert and orient x3 she is on medications. Reported yesterday Seroquel was increased to full dose for the first time. She is taking half a tab prior to that. After initiation work-up or evaluation records admitted little over 2 weeks ago with pneumonia with A. fib with RVR. Discharged with antibiotics. She continued her dosing of metoprolol twice a day at that time. She follow-up with her PCP 8 days ago noted concerns for bradycardia heart rate was 54 in the office therefore metoprolol decreased to once a day. Prior similar symptoms: No PFSH <Dr. Poncho Elizabeth, DO - Last Filed: 09/16/22 17:44> PFSH Medical History A-fib Acquired dysplasia of left hip Anemia Arthritis Atherosclerotic heart disease of [place] coronary artery without angina pectoris Cataracts, bilateral Chest pain Ectopic beat, ventricular Essential hypertension History of kidney stones History of pneumonia Hot flashes Humerus fracture NSTEMI (non-ST elevated myocardial infarction) PAF (paroxysmal atrial fibrillation) Seasonal allergies Vasovagal syncope Home Medications cinnamon bark 500 mg capsule (Cinnamon) 500 mg PO BID supplement 03/13/19 [History Last Taken 09/15/22] aspirin 81 mg tablet,delayed release 81 mg PO QHS [facility] 07/11/19 [History Last Taken 09/15/22] cyanocobalamin (vitamin B-12) 1,000 mcg tablet,extended release 1,000 mcg PO DAILY vitamin 05/12/20 [History Last Taken 09/15/22] donepezil 10 mg tablet 10 mg PO QHS Memory #90 tabs 12/30/21 [Rx Last Taken 09/15/22] atorvastatin 40 mg tablet 40 mg PO DAILY cholesterol 04/14/22 [History Last Taken 09/15/22] lisinopril 10 mg-hydrochlorothiazide 12.5 mg tablet 1 tab PO DAILY #90 tabs 07/21/22 [Rx Last Taken 09/15/22] FACTOR 5 MTV 1 tab PO/SL BID SUPPLEMENT 08/27/22 [History Last Taken 09/15/22] cod liver oil 1 cap PO DAILY SUPPLEMENT 08/27/22 [History Last Taken 09/15/22] quetiapine 25 mg tablet 25 mg PO QHS 09/08/22 [History Last Taken 09/15/22] metoprolol succinate 25 mg tablet,extended release 24 hr 25 mg PO DAILY Blood pressure 09/10/22 [History Last Taken 09/15/22] turmeric root extract 500 mg capsule 1,500 mg PO DAILY SUPPLEMENT 09/10/22 [History Last Taken 09/15/22] magnesium oxide 500 mg tablet 500 mg PO DAILY SUPPLEMENT 09/16/22 [History Last Taken 09/15/22] multivitamin 1 tab PO DAILY SUPPLEMENT 09/16/22 [History Last Taken 09/15/22] potassium chloride 20 mEq tablet,extended release(part/cryst) 20 meq PO DAILY SUPPLEMENT 09/16/22 [History Last Taken 09/15/22] Allergy/AdvReac Type Severity Reaction Status Date / Time piroxicam [From Feldene] AdvReac Unknown Unknown Verified 09/16/22 09:50 adhesive AdvReac NEEDS Verified 09/16/22 09:50 FOLLOW-UP Family History Other Arthritis Cancer Surgical History History of carpal tunnel release History of section Presence of stent in coronary artery (~07/12/19) Social History Smoking Status: Never smoker alcohol intake: never substance use type: does not use what type of physical activity do you participate in: none ROS <Dr. Poncho Elizabeth, DO - Last Filed: 09/16/22 17:44> ROS ED Constitutional Constitutional ED: Denies chills, fever(s) or sweats Eyes Eyes: Denies change in vision ENT ENT ED: Denies dysphagia or sore throat Cardiovascular Cardiovascular: Denies chest pain, leg edema, palpitations or racing heartbeat Respiratory/Chest Respiratory/Chest: Denies cough, dyspnea or dyspnea on exertion Gastrointestinal Gastrointestinal: Denies abdominal pain, diarrhea, nausea or vomiting Genitourinary Genitourinary ED: Denies dysuria, hematuria or urinary frequency Musculoskeletal Musculoskeletal: Denies back pain, extremity pain or neck pain Integumentary Denies rash or wounds Neurologic Neurologic: Reports other Details: Transient slurred speech ; Denies headache(s), paresthesias or weakness EXAM <Dr. Poncho Elizabeth, DO - Last Filed: 09/16/22 17:44> Physical Exam Const Vital Signs: 09/16/22 09:47 09/16/22 10:19 09/16/22 10:19 Temperature 97.6 F L Temperature Source Temporal Pulse Rate 124 H 134 H Respiratory Rate 16 17 Blood Pressure 118/90 H Blood Pressure Mean 99 Pulse Ox 98 97 Oxygen Delivery Method Room Air Room Air Room Air 09/16/22 10:29 09/16/22 10:43 09/16/22 10:43 Temperature Temperature Source Pulse Rate 124 H 143 H 143 H Respiratory Rate 18 17 17 Blood Pressure 118/90 H 141/88 H 141/88 H Blood Pressure Mean 99 105 105 Pulse Ox 98 95 95 Oxygen Delivery Method Room Air Room Air Room Air 09/16/22 11:13 09/16/22 11:13 Temperature Temperature Source Pulse Rate 104 H 104 H Respiratory Rate 24 H 24 H Blood Pressure 109/81 H 109/81 H Blood Pressure Mean 90 90 Pulse Ox 94 94 Oxygen Delivery Method Room Air Room Air Positive well nourished and well developed General Appearance ED: well developed and NAD HEENT Reports moist mucous membranes normocephalic and atraumatic Eyes PERRL, EOMs intact bilaterally and conjunctivae normal General Eye ED: Yes normal appearance of both eyes Neck no lymphadenopathy and supple General: Negative for tenderness Chest Wall Chest: Negative for tenderness Resp normal respiratory effort and normal air movement Effort and Inspection: symmetric chest movement; Negative for respiratory distress Cardio regular rhythm Rate: tachycardic Rhythm: abnormal rhythm Peripheral Pulses: pulses 2+ throughout GI normal to inspection, nondistended, normoactive bowel sounds and non-tender Palpation: Negative for guarding or rebound tenderness present Back/Spine no CVA tenderness and no thoracic nor lumbar tenderness Extremity normal to inspection General Extremety ED: Negative for edema or tenderness General Extremity: Negative for edema Neuro oriented x3, CN's II-XII intact bilaterally and no sensory deficits noted Sensorium / Orientation: awake and alert Skin no rashes or lesions noted and no wounds NIHSS NIHSS Initial: 1a Level of Consciousness: 0 1b LOC Questions (Score 2 if aphasic/stupor): 0 1c LOC Commands (Only score 1st attempt): 0 2 Best Gaze (If aphasic, use reflexive mvmts.): 0 3 Visual: 0 4 Facial Palsy: 0 5 Motor Arm Right (UN = amputation/fusion): 0 5 Motor Arm Left: 0 6 Motor Leg Right: 0 6 Motor Leg Left: 0 7 Limb ataxia (Only + if out of proportion): 0 8 Sensory (Aphasia/stupor=0 or 1, coma=2): 0 9 Best Language: 0 10 Dysarthria (mute, coma=2, intubated=UN): 0 11 Extinction and Inattention (only scored if +): 0 Total Score: 0 <Dr. Damari Riley MD - Last Filed: 09/16/22 17:09> Physical Exam Const Vital Signs: 09/16/22 09:47 09/16/22 10:19 09/16/22 10:19 Temperature 97.6 F L Temperature Source Temporal Pulse Rate 124 H 134 H Respiratory Rate 16 17 Blood Pressure 118/90 H Blood Pressure Mean 99 Pulse Ox 98 97 Oxygen Delivery Method Room Air Room Air Room Air 09/16/22 10:29 09/16/22 10:43 09/16/22 10:43 Temperature Temperature Source Pulse Rate 124 H 143 H 143 H Respiratory Rate 18 17 17 Blood Pressure 118/90 H 141/88 H 141/88 H Blood Pressure Mean 99 105 105 Pulse Ox 98 95 95 Oxygen Delivery Method Room Air Room Air Room Air 09/16/22 11:13 09/16/22 11:13 Temperature Temperature Source Pulse Rate 104 H 104 H Respiratory Rate 24 H 24 H Blood Pressure 109/81 H 109/81 H Blood Pressure Mean 90 90 Pulse Ox 94 94 Oxygen Delivery Method Room Air Room Air NIHSS NIHSS Initial: Total Score: 0 MDM <Dr. Poncho Elizabeth, DO - Last Filed: 09/16/22 17:44> [facility] Narrative Medical decision making narrative: Patient present currently transient slurred speech. She is in A. fib with RVR. NIH currently 0. She is little over 3 hours from onset of symptoms. She is at risk for thrombus with her A. fib. I activated stroke team for evaluation of brain and vasculature. Blood pressure 118/90 on arrival. 1027: Spoke with stroke neurologist, no current tPA as NIH of 0 I discussed A. fib with RVR, will call back if there is a large vessel occlusion. CT angiogram negative for LVO. Remained stable. She is given IV Lopressor then her home medication of metoprolol. Rate controlled atrial fibrillation. I discussed with hospitalist Dr. Riley for admission to PCU. Lab Data Attestation: I reviewed the patient's lab results. Labs: Laboratory Results - last 24 hr 09/16/22 09/16/22 09/16/22 10:15 10:15 10:15 WBC 6.1 RBC 5.00 Hgb 16.5 H Hct 48.5 H MCV 97.0 MCH 33.0 H MCHC 34.0 RDW Std Deviation 45.9 H RDW Coeff of Hafsa 13.0 Plt Count 170 MPV 11.2 Immature Gran % (Auto) 0.300 Neut % (Auto) 69.5 Lymph % (Auto) 18.6 L Ogle % (Auto) 9.3 Eos % (Auto) 1.8 Baso % (Auto) 0.5 Absolute Neuts (auto) 4.3 Absolute Lymphs (auto) 1.14 Nucleated RBC % 0 PT 13.6 INR 1.1 APTT 27.8 Sodium 138 Potassium 4.3 Chloride 100 Carbon Dioxide 30.0 Anion Gap 8 BUN 20 H Creatinine 0.99 Estim Creat Clear Calc 46.34 Est GFR (MDRD) Af Amer 69 Est GFR (MDRD) Non-Af 57 L BUN/Creatinine Ratio 20.2 H Glucose 121 H Calcium 10.0 Troponin I High Sens 11 POC Glucose 09/16/22 10:15 WBC RBC Hgb Hct MCV MCH MCHC RDW Std Deviation RDW Coeff of Hafsa Plt Count MPV Immature Gran % (Auto) Neut % (Auto) Lymph % (Auto) Ogle % (Auto) Eos % (Auto) Baso % (Auto) Absolute Neuts (auto) Absolute Lymphs (auto) Nucleated RBC % PT INR APTT Sodium Potassium Chloride Carbon Dioxide Anion Gap BUN Creatinine Estim Creat Clear Calc Est GFR (MDRD) Af Amer Est GFR (MDRD) Non-Af BUN/Creatinine Ratio Glucose Calcium Troponin I High Sens POC Glucose 103 Radiography Diagnostic Testing: Clinical Impression(s) from Imaging Studies Brain CT 09/16/22 10:13 IMPRESSION: Chronic involutional changes of the brain. Encephalomalacia involving the posterior right parietal occipital lobes. N.B. : The above Results were Read Back by Sánchez Wilkins MD to Poncho Elizabeth and understanding confirmed on 09/16/2022 10:33:56 (ET). Electronically Signed: Sánchez Wilkins MD at 10:35 EST , ADDENDUM: 09/16/22 1042 IMPRESSION: Chronic involutional changes of the brain. Encephalomalacia involving the posterior right parietal occipital lobes. N.B. : The above Results were Read Back by Sánchez Wilkins MD to Poncho Elizabeth and understanding confirmed on 09/16/2022 10:33:56 (ET). Electronically Signed: Sánchez Wilkins MD at 10:35 EST , Head/Neck CTA 09/16/22 10:13 IMPRESSION: Mild plaque formation at the origin of the left internal carotid artery. N.B. : The above Results were Read Back by Sánchez Wilkins MD to Poncho Elizabeth and understanding confirmed on 09/16/2022 10:50:15 (ET). Electronically Signed: Sánchez Wilkins MD at 10:51 EST , ADDENDUM: 09/16/22 1058 IMPRESSION: Mild plaque formation at the origin of the left internal carotid artery. N.B. : The above Results were Read Back by Sánchez Wilkins MD to Poncho Elizabeth and understanding confirmed on 09/16/2022 10:50:15 (ET). Electronically Signed: Sánchez Wilkins MD at 10:51 EST , Chest X-Ray 09/16/22 11:18 IMPRESSION: Stable infiltrate in the right infrahilar region. Electronically Signed: Sánchez Wilkins MD at 12:07 EST , EKG Initial EKG: Attestation: I personally reviewed and interpreted this EKG as follows: Comments: A. fib RVR rate of 137, no ST or T wave changes. Stroke Documentation Questions Stroke Team Activated: Yes Reviewed Inclusion/Exclusion criteria: Yes Was Patient considered for Endovascular Intervention?: No-CTA negative, determined not to be an endovascular candidate IV Alteplase (t-PA) Administered: No <Dr. Damari Riley MD - Last Filed: 09/16/22 17:09> [facility] Lab Data Labs: Laboratory Results - last 24 hr 09/16/22 09/16/22 09/16/22 10:15 10:15 10:15 WBC 6.1 RBC 5.00 Hgb 16.5 H Hct 48.5 H MCV 97.0 MCH 33.0 H MCHC 34.0 RDW Std Deviation 45.9 H RDW Coeff of Hafsa 13.0 Plt Count 170 MPV 11.2 Immature Gran % (Auto) 0.300 Neut % (Auto) 69.5 Lymph % (Auto) 18.6 L Ogle % (Auto) 9.3 Eos % (Auto) 1.8 Baso % (Auto) 0.5 Absolute Neuts (auto) 4.3 Absolute Lymphs (auto) 1.14 Nucleated RBC % 0 PT 13.6 INR 1.1 APTT 27.8 Sodium 138 Potassium 4.3 Chloride 100 Carbon Dioxide 30.0 Anion Gap 8 BUN 20 H Creatinine 0.99 Estim Creat Clear Calc 46.34 Est GFR (MDRD) Af Amer 69 Est GFR (MDRD) Non-Af 57 L BUN/Creatinine Ratio 20.2 H Glucose 121 H Calcium 10.0 Troponin I High Sens 11 POC Glucose 09/16/22 10:15 WBC RBC Hgb Hct MCV MCH MCHC RDW Std Deviation RDW Coeff of Hafsa Plt Count MPV Immature Gran % (Auto) Neut % (Auto) Lymph % (Auto) Ogle % (Auto) Eos % (Auto) Baso % (Auto) Absolute Neuts (auto) Absolute Lymphs (auto) Nucleated RBC % PT INR APTT Sodium Potassium Chloride Carbon Dioxide Anion Gap BUN Creatinine Estim Creat Clear Calc Est GFR (MDRD) Af Amer Est GFR (MDRD) Non-Af BUN/Creatinine Ratio Glucose Calcium Troponin I High Sens POC Glucose 103 Radiography Diagnostic Testing: Clinical Impression(s) from Imaging Studies Brain CT 09/16/22 10:13 IMPRESSION: Chronic involutional changes of the brain. Encephalomalacia involving the posterior right parietal occipital lobes. N.B. : The above Results were Read Back by Sánchez Wilkins MD to Poncho Elizabeth and understanding confirmed on 09/16/2022 10:33:56 (ET). Electronically Signed: Sánchez Wilkins MD at 10:35 EST , ADDENDUM: 09/16/22 1042 IMPRESSION: Chronic involutional changes of the brain. Encephalomalacia involving the posterior right parietal occipital lobes. N.B. : The above Results were Read Back by Sánchez Wilkins MD to Poncho Elizabeth and understanding confirmed on 09/16/2022 10:33:56 (ET). Electronically Signed: Sánchez Wilkins MD at 10:35 EST , Head/Neck CTA 09/16/22 10:13 IMPRESSION: Mild plaque formation at the origin of the left internal carotid artery. N.B. : The above Results were Read Back by Sánchez Wilkins MD to Poncho Elizabeth and understanding confirmed on 09/16/2022 10:50:15 (ET). Electronically Signed: Sánchez Wilkins MD at 10:51 EST , ADDENDUM: 09/16/22 1058 IMPRESSION: Mild plaque formation at the origin of the left internal carotid artery. N.B. : The above Results were Read Back by Sánchez Wilkins MD to Poncho Elizabeth and understanding confirmed on 09/16/2022 10:50:15 (ET). Electronically Signed: Sánchez Wilkins MD at 10:51 EST , Chest X-Ray 09/16/22 11:18 IMPRESSION: Stable infiltrate in the right infrahilar region. Electronically Signed: Sánchez Wilkins MD at 12:07 EST , <Dr. Poncho Elizabeth, DO - Last Filed: 09/16/22 17:44> Critical Care Time Critical Care Time: Yes Critical care time (excluding procedures): 30-74 minutes, Discussing w/Patient &/or Family/Bolt Machine Operator, Discussing w/Consultants, Arranging Admission or Transfer, Performing Direct Patient Care at Bedside and - (35 minutes) Discharge Plan Dx/Rx/DC Orders Clinical Impression: Slurred speech, Atrial fibrillation with RVR, CAD (coronary artery disease), Brain TIA Disposition Disposition: Acute Care Hospital [facility] Discharge Date/Time: 09/16/22 12:58
[2022-09-16 10:21] LABS: Absolute Lymphocyte Count 1.14 X10^3/uL (0.83-4.51); Absolute Neutrophil Count 4.3 X10^3/uL (2.0-7.7); Basophil# 0.03 X10^3/uL; Basophil% 0.5 % (0-1); Eosinophil# 0.11 X10^3/uL; Eosinophils% 1.8 % (0-5); Hematocrit 48.5 % (37-47); Hemoglobin 16.5 g/dL (12.0-15.0); Lymphocyte # 1.14 X10^3/ul (0.83-4.51); Lymphocyte % 18.6 % (19-41); Mean Platelet Vol. 11.2 fl (6.2-12.0); Monocyte# 0.57 X10^3/uL; Monocyte% 9.3 % (0-10); NRBC Flagged by Analyzer 0 % (0-5); Neutrophil # 4.26 X10^3/uL (2.7-7.7); Neutrophil % 69.5 % (47-70); Platelet Count 170 K/mm3 (150-450); RBC Distribution Width SD 45.9 fl (35.1-43.9); White Blood Count 6.1 K/mm3 (4.4-11.0)
[2022-09-16 10:33] LABS: International Normalized Ratio 1.1; Partial Thromboplast Time 27.8 Seconds (24.1-36.2); Prothrombin Time (Protime)PT. 13.6 SECONDS (11.7-14.9)
[2022-09-16 10:35] LABS: Bedside Glucose 103 mg/dL (74-106)
[2022-09-16 10:46] LABS: Anion Gap 8 (5-15); BUN 20 mg/dL (7-18); BUN/Creat Ratio 20.2 RATIO (10-20); Chloride 100 mmol/L (98-107); Creatinine, Serum 0.99 mg/dL (0.55-1.02); EST Glomerular Filtration Rate 57 mL/min (>60); Est Glom Filt Rate - Afr Amer 69 mL/min (>60); Estimated Creatinine Clearance 46.34 ml/min; Glucose 121 mg/dL (74-106); Potassium 4.3 mmol/L (3.5-5.1); Sodium Level 138 mmol/L (136-145); Troponin-I HS 11 pg/mL (3.0-54.0)
[2022-09-16] MEDS: Metoprolol Tartrate 5 MG/5 ML Vial IV (10:47)
--- NOTE | 2022-09-16 11:18 | RAD_ITS ---
STUDY: X-RAY CHEST REASON FOR EXAM: Female, 82 years old. Neuro deficit, acute, stroke suspected TECHNIQUE: Single AP portable view of the chest. COMPARISON: Comparison is made with prior study dated 08/27/2022. FINDINGS: EKG electrodes are seen. Stable elevation of the right hemidiaphragm. Stable infiltration in the right infrahilar region. There is no demonstrated pleural abnormality. Normal size heart. Normal mediastinum and emigdio. Normal visualized pulmonary arteries. There is atherosclerotic calcification of the aortic arch with tortuosity. There are diffuse degenerative changes of the visualized thoracic spine. Deformity of the right humeral head suggestive of old trauma. There is no demonstrated abnormality of the visualized soft tissue structures of the upper abdomen. RAD/Chest 1 View IMPRESSION: Stable infiltrate in the right infrahilar region. Electronically Signed: Sánchez Wilkins MD at 12:07 EST ,
--- NOTE | 2022-09-16 11:34 | ED.RN ---
NIH has remained 0, NIH assessments discontinued at this time.
--- NOTE | 2022-09-16 11:43 | HP.PCM.HOS_ITS ---
HPI - General General Date of Admission: 09/16/22 Date of Service: 09/16/22 Chief Complaint: Syncope, slurred speech -on the morning of admission HPI Narrative MARTHA EMERY, is a 82 F who presents with the above. Patient has past medical history of CAD status post stent to LAD, paroxysmal atrial fibrillation, hypertension who was recently admitted for pneumonia and A. fib with RVR. She was discharged on metoprolol. History was taking more from the who stated that patient was in the bathroom having a bowel movement when she slumped over off the commode, onto the tub. He heard her groan and subsequently a thud and went in to check on her. She did not hit her head. Patient was awake by the time her rushed into the bathroom. Patient was noted to be slurring on the way to the hospital. She looked generally weak but had no hemiparesis. In the emergency room, her blood pressure was 118/90, heart rate is 124, r espiratory 16, she was saturating 98% on room air. Her WBC count was 6.1, hemoglobin 16.5, platelet count 170, INR 1.1, sodium 130, potassium 4.2, chloride 100, bicarbonate 30, BUN 20, creatinine 0.99, troponin 11. Glucose 103. CT of the head showed chronic involutional changes. Encephalomalacia involving the posterior right parietal-occipital lobes. CTA of the head and neck showed mild plaque formation origin of the left internal carotid artery. Chest x-ray shows stable infiltrates in the right infrahilar region. EKG showed A. fib with RVR. Patient had not taken her metoprolol. She was given metoprolol 25 mg p.o. x1 [facility] Medical History A-fib Acquired dysplasia of left hip Anemia Arthritis Atherosclerotic heart disease of [place] coronary artery without angina pectoris Cataracts, bilateral Chest pain Ectopic beat, ventricular Essential hypertension History of kidney stones History of pneumonia Hot flashes Humerus fracture NSTEMI (non-ST elevated myocardial infarction) PAF (paroxysmal atrial fibrillation) Seasonal allergies Vasovagal syncope Home Medications cinnamon bark 500 mg capsule (Cinnamon) 500 mg PO BID supplement 03/13/19 [History Last Taken 09/15/22] aspirin 81 mg tablet,delayed release 81 mg PO [facility] 07/11/19 [History Last Taken 09/15/22] cyanocobalamin (vitamin B-12) 1,000 mcg tablet,extended release 1,000 mcg PO DAILY vitamin 05/12/20 [History Last Taken 09/15/22] donepezil 10 mg tablet 10 mg PO QHS Memory #90 tabs 12/30/21 [Rx Last Taken 09/15/22] atorvastatin 40 mg tablet 40 mg PO DAILY cholesterol 04/14/22 [History Last Taken 09/15/22] lisinopril 10 mg-hydrochlorothiazide 12.5 mg tablet 1 tab PO DAILY #90 tabs 07/21/22 [Rx Last Taken 09/15/22] FACTOR 5 MTV 1 tab PO/SL BID SUPPLEMENT 08/27/22 [History Last Taken 09/15/22] cod liver oil 1 cap PO DAILY SUPPLEMENT 08/27/22 [History Last Taken 09/15/22] quetiapine 25 mg tablet 25 mg PO QHS 09/08/22 [History Last Taken 09/15/22] metoprolol succinate 25 mg tablet,extended release 24 hr 25 mg PO DAILY Blood pressure 09/10/22 [History Last Taken 09/15/22] turmeric root extract 500 mg capsule 1,500 mg PO DAILY SUPPLEMENT 09/10/22 [History Last Taken 09/15/22] magnesium oxide 500 mg tablet 500 mg PO DAILY SUPPLEMENT 09/16/22 [History Last Taken 09/15/22] multivitamin 1 tab PO DAILY SUPPLEMENT 09/16/22 [History Last Taken 09/15/22] potassium chloride 20 mEq tablet,extended release(part/cryst) 20 meq PO DAILY SUPPLEMENT 09/16/22 [History Last Taken 09/15/22] Allergy/AdvReac Type Severity Reaction Status Date / Time piroxicam [From Feldene] AdvReac Unknown Unknown Verified 09/16/22 09:50 adhesive AdvReac NEEDS Verified 09/16/22 09:50 FOLLOW-UP Family History Other Arthritis Cancer Surgical History History of carpal tunnel release History of section Presence of stent in coronary artery (~07/12/19) Social History Smoking Status: Never smoker alcohol intake: never substance use type: does not use what type of physical activity do you participate in: none ROS ROS Narrative Constitutional: Reports: Malaise, Weakness, Fatigue. Denies: Anorexia, Chills, Fever, Night Sweats, Weight Change Eyes: Denies: Blurred vision, Cataracts, Conjunctivae Inflammation, Pain, Red ness, Vision Change HEENT: Denies: Difficulty Hearing, Difficulty Swallowing, Head Aches, Hearing Ch anges, Sinus Congestion, Sinus Drainage Cardiovascular: Denies: Chest Pain, Orthopnea, Palpitations Respiratory: Denies: Cough, Shortness of breath at rest, Sputum production Gastrointestinal: Denies: Abdominal Pain, Nausea, Vomiting Genitourinary: Denies: Dysuria Musculoskeletal: Denies: Joint Pain, Joint stiffness, Joint swelling, Joint Tenderness Skin: Denies: Rash, Wounds Neurological: See HPI Vital Signs Vital Signs Vital Signs: 09/16/22 09:47 09/16/22 10:19 09/16/22 10:19 Temperature 97.6 F L Temperature Source Temporal Pulse Rate 124 H 134 H Respiratory Rate 16 17 Blood Pressure 118/90 H Blood Pressure Mean 99 Pulse Ox 98 97 Oxygen Delivery Method Room Air Room Air Room Air 09/16/22 10:29 09/16/22 10:43 09/16/22 10:43 Temperature Temperature Source Pulse Rate 124 H 143 H 143 H Respiratory Rate 18 17 17 Blood Pressure 118/90 H 141/88 H 141/88 H Blood Pressure Mean 99 105 105 Pulse Ox 98 95 95 Oxygen Delivery Method Room Air Room Air Room Air 09/16/22 11:13 09/16/22 11:13 Temperature Temperature Source Pulse Rate 104 H 104 H Respiratory Rate 24 H 24 H Blood Pressure 109/81 H 109/81 H Blood Pressure Mean 90 90 Pulse Ox 94 94 Oxygen Delivery Method Room Air Room Air Weight Weight: 69.4 kg Body Mass Index (BMI) 30.9 Physical Exam Narrative Physical exam: General: Alert, Oriented x3, Cooperative, HEENT: Atraumatic Oral: Moist Mucosa Neck: Supple Lungs: Clear to auscultation Cardiovascular: HS I+II, regular, no murmurs Abdomen: Bowel Sounds Present, Soft, Non Tender Extremities: No edema Skin: No rashes, No breakdown Neurological: Grossly intact Psych/Mental Status: Appropriate Results Lab / Micro Data Result Diagrams: 09/16/22 10:15 09/16/22 10:15 Labs: Laboratory Results - last 24 hr 09/16/22 10:15: WBC 6.1, RBC 5.00, Hgb 16.5 H, Hct 48.5 H, MCV 97.0, MCH 33.0 H, MCHC 34.0, RDW Std Deviation 45.9 H, RDW Coeff of Hafsa 13.0, Plt Count 170, MPV 11.2, Immature Gran % (Auto) 0.300, Neut % (Auto) 69.5, Lymph % (Auto) 18.6 L, Steele % (Auto) 9.3, Eos % (Auto) 1.8, Baso % (Auto) 0.5, Absolute Neuts (auto) 4.3, Absolute Lymphs (auto) 1.14, Nucleated RBC % 0 09/16/22 10:15: PT 13.6, INR 1.1, APTT 27.8 09/16/22 10:15: Sodium 138, Potassium 4.3, Chloride 100, Carbon Dioxide 30.0, Anion Gap 8, BUN 20 H, Creatinine 0.99, Estim Creat Clear Calc 46.34, Est GFR (MDRD) Af Amer 69, Est GFR (MDRD) Non-Af 57 L, BUN/Creatinine Ratio 20.2 H, Glucose 121 H, Calcium 10.0, Troponin I High Sens 11 09/16/22 10:15: POC Glucose [address] 09/16/22 10:13 IMPRESSION: Chronic involutional changes of the brain. Encephalomalacia involving the posterior right parietal occipital lobes. N.B. : The above Results were Read Back by Sánchez Wilkins MD to [facility] [place] and understanding confirmed on 09/16/2022 10:33:56 (ET). Electronically Signed: Sánchez Wilkins MD at 10:35 EST , ADDENDUM: 09/16/22 1042 IMPRESSION: Chronic involutional changes of the brain. Encephalomalacia involving the posterior right parietal occipital lobes. N.B. : The above Results were Read Back by Sánchez Wilkins MD to Poncho Elizabeth and understanding confirmed on 09/16/2022 10:33:56 (ET). Electronically Signed: Sánchez Wilkins MD at 10:35 EST , Head/Neck CTA 09/16/22 10:13 IMPRESSION: Mild plaque formation at the origin of the left internal carotid artery. N.B. : The above Results were Read Back by Sánchez Wilkins MD to Poncho Elizabeth and understanding confirmed on 09/16/2022 10:50:15 (ET). Electronically Signed: Sánchez Wilkins MD at 10:51 EST , ADDENDUM: 09/16/22 1058 IMPRESSION: Mild plaque formation at the origin of the left internal carotid artery. N.B. : The above Results were Read Back by Sánchez Wilkins MD to Poncho Elizabeth and understanding confirmed on 09/16/2022 10:50:15 (ET). Electronically Signed: Sánchez Wilkins MD at 10:51 EST , Assessment & Plan Assessment/Plan (1) Slurred speech: (2) Atrial fibrillation with RVR: PLAN: Plan 1. Acute onset of syncope, slurred speech, concerning for possible TIA Patient CT of the brain showed chronic involutional changes, CTA of the head and neck showed mild left carotid plaque Admitted to PCU for stroke work-up, MRI brain, 2D echo Lipid profile, HbA1c, PT/OT/ST to evaluate and treat 2. Paroxysmal atrial fibrillation with RVR, patient given a dose of metoprolol in the ED We will start anticoagulation for now until acute stroke has been ruled out 2D echo, cardiology consult 3. CAD status post stent, continue aspirin, statin 4. Recent pneumonia, not on oxygen 5. DVT PPx- Heparin SC Charges/Coding Visit Charges OBSV E&M: 06075 Initial observation care L3
[2022-09-16] MEDS: Metoprolol(XL)Succ 25 MG Tablet PO (12:12)
--- NOTE | 2022-09-16 13:11 | MRI_ITS ---
STUDY: MRI BRAIN WITHOUT CONTRAST REASON FOR EXAM: Female, 82 years old. cva TECHNIQUE: Standardized multiplanar fat and water weighted pulse sequences were obtained. COMPARISON: CT of the brain 09/16/2022 MRI of the brain 06/13/2014. FINDINGS: Mild atrophy and moderate periventricular white matter ischemic change without mass effect or restricted diffusion.. Encephalomalacia in the right posterior temporal and parietal lobe with gliosis consistent with old infarct. Normal bilateral basal ganglia. Normal thalami. There is no extra-axial fluid accumulation. Normal flow voids within the major intracranial circulation suggesting patency by spin echo criteria. Normal sella turcica, pituitary gland, infundibular stalk, optic chiasm and hypothalamus. Normal tectal plate and pineal gland. Normal midbrain, pratima and medulla. Normal cerebellum. Normal basal cisterns. Normal bilateral temporal bones. Normal bilateral internal auditory canals. Postsurgical changes of the orbits.. Normal visualized paranasal sinuses. Normal calvarium and skull base. Normal visualized soft tissue structures. Normal visualized upper cervical spine. MRI/Brain without Contrast IMPRESSION: Moderate periventricular white matter ischemic changes without evidence for acute infarct. Old right temporoparietal infarct Electronically Signed: Luis Alfredo Velazquez MD at 18:50 EST ,
--- NOTE | 2022-09-16 13:11 | ECHOD_ITS ---
Reason For Study: TIA/CVA Procedure This was a 2D Doppler, Color Flow transthoracic echocardiogram. Exam performed portable in ICU/CCU. Left Ventricle Normal LV size. The estimated ejection fraction is 65 %. Unable to assess diastolic dysfunction. No regional wall motion abnormalities noted. Right Ventricle Normal RV size. Normal systolic function. Atria The left atrium is moderately enlarged. The right atrium is mildly enlarged. No doppler evidence for ASD. Bubble contrast study negative for right to left interatrial shunt. Mitral Valve There is no mitral valve stenosis. No mitral valve insufficiency. Tricuspid Valve There is no tricuspid stenosis. Trivial tricuspid valve insufficiency. Pulmonary artery systolic pressure is 35-40 mmHg. Aortic Valve Trisinus/trileaflet aortic valve. There is no aortic stenosis. No aortic valve insufficiency. Pulmonic Valve There is no pulmonic valvular stenosis. Trivial pulmonic valve insufficiency. Great Vessels Normal aortic root. Pericardium/Pleural No pericardial effusion. Medication Performed a rapid injection of agitated mix of 9 cc saline and 1cc air to assess for atrial septal defect. MMode/2D Measurements & Calculations LVIDd: 3.8 cm IVSd: 0.89 cm Ao root diam: 2.8 cm LVIDs: 2.6 cm LVPWd: 1.2 cm RVDd: 2.1 cm FS: 30.9 % LAV(MOD-bp): 56.4 ml LA A4 area: 19.7 cm2 LA dimension(2D): 3.4 cm LAV(MOD-bp) Indexed: 35.2 ml/m2 LAV(MOD-sp2): 52.8 ml LAV(MOD-sp4): 53.6 ml RA A4 area: 12.4 cm2 Doppler Measurements & Calculations MV E max boris: 135.4 cm/sec MV V2 max: 128.8 cm/sec Ao V2 max: 105.8 cm/sec MV max P.7 mmHg Ao max P.6 mmHg MV V2 mean: 72.2 cm/sec Ao V2 mean: 75.6 cm/sec MV mean P.7 mmHg Ao mean P.6 mmHg MV V2 VTI: 16.6 cm Ao V2 VTI: 21.4 cm LV V1 max: 81.2 cm/sec PA V2 max: 66.1 cm/sec TR max boris: 299.6 cm/sec LV V1 max P.7 mmHg TR max P.9 mmHg LV V1 mean P.6 mmHg LV V1 mean: 59.5 cm/sec LV V1 VTI: 18.0 cm ECHO/Echo Complete Interpretation Summary The estimated ejection fraction is 65 %. Unable to assess diastolic dysfunction. The left atrium is moderately enlarged. The right atrium is mildly enlarged. Ordering Physician: Damari Riley Referring Physician: Estiven Gutierrez M.D. Performed By: Emilia Gonzalez RCS
[2022-09-16 17:42] LABS: Hemoglobin A1c 5.5 % (3.8-5.6)
[2022-09-16] MEDS: Aspirin E.C. 81 MG Tablet PO (21:21)
[2022-09-16] MEDS: Heparin Injection (Vial) 5,000 UNIT/ML VIAL 5000 UNIT SC (21:21)
[2022-09-17] VITALS (8 sets, daily range): BP systolic 133–154; BP diastolic 57–92; PULSE 59–82; RESP 18; TEMP 36.6; O2SAT 93; BMI 29.2
[2022-09-17 03:31] LABS: Absolute Lymphocyte Count 1.57 X10^3/uL (0.83-4.51); Absolute Neutrophil Count 4.5 X10^3/uL (2.0-7.7); Basophil# 0.02 X10^3/uL; Basophil% 0.3 % (0-1); Eosinophil# 0.17 X10^3/uL; Eosinophils% 2.5 % (0-5); Hematocrit 43.3 % (37-47); Hemoglobin 14.2 g/dL (12.0-15.0); Lymphocyte # 1.57 X10^3/ul (0.83-4.51); Lymphocyte % 22.7 % (19-41); Mean Corp Hgb Conc 32.8 g/dL (32-36); Mean Corpuscular Volume 97.5 fL (81-99); Mean Platelet Vol. 11.1 fl (6.2-12.0); Monocyte# 0.63 X10^3/uL; Monocyte% 9.1 % (0-10); NRBC Flagged by Analyzer 0 % (0-5); Neutrophil # 4.51 X10^3/uL (2.7-7.7); Neutrophil % 65.3 % (47-70); Platelet Count 144 K/mm3 (150-450); RBC Distribution Width CV 12.9 % (11.6-14.6); RBC Distribution Width SD 46.1 fl (35.1-43.9); Red Blood Count 4.44 M/mm3 (4.2-5.4); White Blood Count 6.9 K/mm3 (4.4-11.0)
[2022-09-17 03:51] LABS: ALB/GLOB Ratio 0.9 RATIO (0.9-2.4); AST(SGOT) 18 U/L (15-37); Alanine Aminotransfer ALT/SGPT 21 U/L (13-56); Alkaline Phosphatase 82 U/L (45-117); Anion Gap 8 (5-15); BUN 25 mg/dL (7-18); BUN/Creat Ratio 28.5 RATIO (10-20); Calcium,Total 8.7 mg/dL (8.5-10.1); Chloride 102 mmol/L (98-107); Cholesterol 93 mg/dL (200); Creatinine, Serum 0.88 mg/dL (0.55-1.02); EST Glomerular Filtration Rate 65 mL/min (>60); Est Glom Filt Rate - Afr Amer 79 mL/min (>60); Estimated Creatinine Clearance 34.18 ml/min; Globulin 3.5 g/dL (2.2-4.2); Glucose 101 mg/dL (74-106); High Density Lipoprotein 40 mg/dL; Potassium 3.4 mmol/L (3.5-5.1); Protein, Total 6.5 g/dL (6.4-8.2); Sodium Level 139 mmol/L (136-145); Triglycerides 71 mg/dL; Very Low Density Lipoprotein 14 mg/dL (5-40)
[2022-09-17] MEDS: Heparin Injection (Vial) 5,000 UNIT/ML VIAL 5000 UNIT SC (05:30)
[2022-09-17] MEDS: Potassium Chloride Oral Tablet 20 MEQ 40 MEQ PO (08:15)
[2022-09-17 09:49] LABS: Magnesium 2.1 mg/dL (1.6-2.6)
--- NOTE | 2022-09-17 09:51 | DCINST_ITS ---
Discharge Instructions Follow Up Care Test Results: Test results from this visit will be discussed in further detail at your follow- up appointment, if applicable. Discharge Plan Admission Admit Date/Time: 09/16/22 11:31 Primary Reason for Your Visit: Syncope/TIA Attending Provider: Damari Riley Primary Care Provider: John Gutierrez Consulting Providers: Cierra Tenorio ; Karis Griffin ; Maximilian Caballero ; Aidee Liu ; Sarath Laguna ; Segun Moses ; Felix Hooks ; Cori Kerr ; Kirn,Thomas ; Paxos,Mihail ; Clare,Steven ; Aman Sharpe ; Hunter Horn ; Wei Olivera ; Xavi Holliday GL[employer]ER [employer] SLICER HAND ; Cierra Ayala NP ; Judit Ash PA Instructions Additional Instructions / Restrictions: Take note of changes to your medication You are going to be discharged home with a Holter monitor Follow-up with cardiology within 1 to 2 weeks Follow-up with primary care doctor within a week Discharge Orders/Prescriptions Prescriptions: New metoprolol succinate 25 mg Tablet Extended Release 24 Hr 12.5 mg PO BID 30 Days Qty: 30 0RF Continued cinnamon bark [Cinnamon] 500 mg capsule 500 mg PO BID cyanocobalamin (vitamin B-12) 1,000 mcg tablet extended release 1,000 mcg PO DAILY donepezil 10 mg tablet 10 mg PO QHS Qty: 90 2RF atorvastatin 40 mg tablet 40 mg PO DAILY quetiapine 25 mg tablet 25 mg PO QHS aspirin 81 MG tablet,delayed release (DR/EC) 81 mg PO QHS cod liver oil Capsule 1 cap PO DAILY FACTOR 5 MTV 1 tab PO/SL BID turmeric root extract 500 mg capsule 1,500 mg PO DAILY multivitamin Tablet 1 tab PO DAILY potassium chloride 20 mEq tablet,ER particles/crystals 20 meq PO DAILY magnesium oxide 500 mg Tablet 500 mg PO DAILY lisinopril-hydrochlorothiazide 10-12.5 mg tablet 1 tab PO DAILY Qty: 90 3RF Discontinued metoprolol succinate 25 mg tablet extended release 24 hr 25 mg PO DAILY Referrals / Follow Up: John Gutierrez, [Primary Care Provider] - In 1 Week Aman Sharpe MD [Med Staff - Active Staff] - Within 2 Weeks Disposition Disposition (needs filled in before D/C Order can be placed): Home, Self Care
[2022-09-17] MEDS: Lisinopril 10 MG Tablet PO (10:32)
[2022-09-17] MEDS: hydroCHLOROthiazide 12.5mg 12.5 MG PO (10:32)
--- NOTE | 2022-09-17 10:35 | CASEMGMT ---
[place] updated by hospitalist to send referral to palliative care per family request. [place] in to speak with family regarding palliative referral. Family prefers [facility]. RN EMERY sent referral with screening tool to [facility]. Hospitalist updated [facility] that patient is to have Holter Monitor placed and was wondering if that could be completed while patient was at hospital. RN EMERY called pulmonary neurology and spoke to Carmencita. Per Carmencita, they have plenty of monitors and could place prior to discharge. [place] updated hospitalist, will await confirmation for monitor to placed today. CM will continue to follow this patient and plan for a safe discharge.
[2022-09-17] MEDS: Metoprolol(XL)Succ 25 MG Tablet 12.5 MG PO (12:03)
--- NOTE | 2022-09-17 12:51 | CASEMGMT ---
[place] received confirmation from hosptialist to have Holter Monitor placed at discharge. [place] updated Carmencita from pulmonary services. She states that she will be up to place monitor at discharge. CM will continue to follow this patient plan for a safe discharge.
--- NOTE | 2022-09-17 12:58 | PCM.DC.SUM ---
Providers Date of Admission: 09/16/22 Date of Discharge: 09/17/22 Primary Care Physician: Dr. John Gutierrez, DO Consultations 09/16/22 16:22 Consult: Cardiology Routine Consulting Provider: [facility] Reason for Consult: Afib, bradycardia EMERGENT Consult: No MD Notified: Yes Date Notified: 09/16/22 Time Notified: 16:37 Method of Notification: Answering Service Reason For Visit: TIA Diagnosis Discharge Diagnosis (1) Slurred speech: Status: Acute Code(s): R47.81 - Slurred speech (2) Atrial fibrillation with RVR: Status: Acute Code(s): I48.91 - Unspecified atrial fibrillation Plan 1. Acute onset of syncope, slurred speech, concerning for possible TIA 2. Paroxysmal atrial fibrillation with RVR 3. CAD status post stent 4. Recent pneumonia Medications at Discharge Home Medications cinnamon bark 500 mg capsule (Cinnamon) 500 mg PO BID supplement 03/13/19 aspirin 81 mg tablet,delayed release 81 mg PO QHS [facility] 07/11/19 cyanocobalamin (vitamin B-12) 1,000 mcg tablet,extended release 1,000 mcg PO DAILY vitamin 05/12/20 donepezil 10 mg tablet 10 mg PO QHS Memory #90 tabs 12/30/21 atorvastatin 40 mg tablet 40 mg PO DAILY cholesterol 04/14/22 lisinopril 10 mg-hydrochlorothiazide 12.5 mg tablet 1 tab PO DAILY #90 tabs 07/21/22 FACTOR 5 MTV 1 tab PO/SL BID SUPPLEMENT 08/27/22 cod liver oil 1 cap PO DAILY SUPPLEMENT 08/27/22 quetiapine 25 mg tablet 25 mg PO QHS 09/08/22 turmeric root extract 500 mg capsule 1,500 mg PO DAILY SUPPLEMENT 09/10/22 magnesium oxide 500 mg tablet 500 mg PO DAILY SUPPLEMENT 09/16/22 multivitamin 1 tab PO DAILY SUPPLEMENT 09/16/22 potassium chloride 20 mEq tablet,extended release(part/cryst) 20 meq PO DAILY SUPPLEMENT 09/16/22 metoprolol succinate 25 mg tablet,extended release 24 hr 12.5 mg PO BID 30 days #30 tabs 09/17/22 Hospital Course Operations None Procedures None Summary of Care Provided Minutes Spent on Discharge: 40 Hospital Course: 82-year-old female with past medical history of CAD status post stent to LAD, paroxysmal atrial fibrillation, hypertension who was recently admitted for pneumonia and A. fib with RVR.? She was discharged on metoprolol 25 mg twice daily. At that time, patient was felt to be high risk for anticoagulation. She has history of falls. Patient has since her discharge followed up with a primary care doctor and with cardiology. Her daughter had reported that her heart rate was in the 30s and 40s. Her metoprolol was decreased to 25 mg daily. On the day of admission, patient presented with a syncopal episode that happened while having a bowel movement. She slumped over her commode onto the tub. Her her groan and subsequently a thud. Patient appeared to be awake at the time rushed into the bathroom. She did not hit her head. She was brought to the emergency room. Family stated on the way, and, patient appeared to have slurring of her speech. In the emergency room, her vitals were stable except for heart rate of 124. EKG shows A. fib with RVR. She was given a dose of metoprolol [address] of the head showed chronic involutional changes. CTA of the head showed mild plaque formation of the left carotid artery. Patient was admitted to the progressive care unit, monitored on telemetry. MRI of the brain was unremarkable for acute stroke. Patient's heart rate improved. She was slightly bradycardic on telemetry. At the time of discharge, patient was in normal sinus rhythm. She had hypokalemia on the day of discharge, that was replaced. Patient was seen by PT and OT. Patient's metoprolol was decreased to 12.5 mg p.o. daily. She will follow-up with cardiology within 2 weeks. She was not discharged on anticoagulation because of risk of bleeding secondary to falls. She was also discharged on Holter monitor. Physical Exam Narrative Physical exam: General: Alert, Oriented x3, Cooperative, HEENT: Atraumatic Oral: Moist Mucosa Neck: Supple Lungs: Clear to auscultation Cardiovascular: HS I+II, regular, no murmurs Abdomen: Bowel Sounds Present, Soft, Non Tender Extremities: No edema Skin: No rashes, No breakdown Neurological: Grossly intact Psych/Mental Status: Appropriate Weight / BMI Weight Weight: 69.7 kg Body Mass Index (BMI) 29.2 ABG / Lab / Microbiology Data Result Diagrams: 09/17/22 03:20 09/17/22 03:20 Laboratory: Laboratory Results - last 24 hr 09/16/22 10:15: Hemoglobin A1c 5.5 09/17/22 03:20: WBC 6.9, RBC 4.44, Hgb 14.2, Hct 43.3, MCV 97.5, MCH 32.0, MCHC 32.8, RDW Std Deviation 46.1 H, RDW Coeff of Hafsa 12.9, Plt Count 144 L, MPV 11.1, Immature Gran % (Auto) 0.100, Neut % (Auto) 65.3, Lymph % (Auto) 22.7, Woods % (Auto) 9.1, Eos % (Auto) 2.5, Baso % (Auto) 0.3, Absolute Neuts (auto) 4.5, Absolute Lymphs (auto) 1.57, Nucleated RBC % 0 09/17/22 03:20: Sodium 139, Potassium 3.4 L, Chloride 102, Carbon Dioxide 29.0, Anion Gap 8, BUN 25 H, Creatinine 0.88, Estim Creat Clear Calc 34.18, Est GFR (MDRD) Af Amer 79, Est GFR (MDRD) Non-Af 65, BUN/Creatinine Ratio 28.5 H, Glucose 101, Calcium 8.7, Total Bilirubin 0.90, AST 18, ALT 21, Alkaline Phosphatase 82, Total Protein 6.5, Albumin 3.0 L, Globulin 3.5, Albumin/Globulin Ratio 0.9, Triglycerides 71, Cholesterol 93, LDL Cholesterol 39, VLDL Cholesterol 14, HDL Cholesterol 40 09/17/22 03:20: Magnesium 2.1 Radiography Diagnostic Testing: Radiology Impression Brain MRI 09/16/22 13:11 IMPRESSION: Moderate periventricular white matter ischemic changes without evidence for acute infarct. Old right temporoparietal infarct Electronically Signed: Luis Alfredo Velazquez MD at 18:50 EST , Echocardiogram 09/16/22 13:11 Interpretation Summary The estimated ejection fraction is 65 %. Unable to assess diastolic dysfunction. The left atrium is moderately enlarged. The right atrium is mildly enlarged. Ordering Physician: Damari Riley Referring Physician: Estiven Gutierrez M.D. Performed By: Emilia Gonzalez RCS D/C Instructions Discharge Diet: Low fat / Low cholesterol and 2000 mg Sodium Diet Discharge Activity: Return to Normal Activity Meaningful Use Info Meaningful Use Diagnoses (Choose all that apply): None applicable Discharge Plan Admission Admit Date/Time: 09/16/22 11:31 Primary Reason for Your Visit: Syncope/TIA Attending Provider: Damari Riley Primary Care Provider: John Gutierrez Consulting Providers: Cierra Tenorio ; Karis Griffin ; Maximilian Caballero ; Aidee Liu ; Sarath Laguna ; Segun Moses ; Felix Hooks ; Cori Kerr ; Thomas Gotti ; Nico Ashraf ; Steven Sparks ; Aman Sharpe ; Hunter Horn ; Wei Olivera ; Xavi Holliday FITTING ROOM SUPERVISOR ; Cierra Ayala NP ; Judit Ash Instructions Additional Instructions / Restrictions: Take note of changes to your medication You are going to be discharged home with a Holter monitor Follow-up with cardiology within 1 to 2 weeks Follow-up with primary care doctor within a week Discharge Orders/Prescriptions Prescriptions: New metoprolol succinate 25 mg Tablet Extended Release 24 Hr 12.5 mg PO BID 30 Days Qty: 30 0RF Continued cinnamon bark [Cinnamon] 500 mg capsule 500 mg PO BID cyanocobalamin (vitamin B-12) 1,000 mcg tablet extended release 1,000 mcg PO DAILY donepezil 10 mg tablet 10 mg PO QHS Qty: 90 2RF atorvastatin 40 mg tablet 40 mg PO DAILY quetiapine 25 mg tablet 25 mg PO QHS aspirin 81 MG tablet,delayed release (DR/EC) 81 mg PO QHS cod liver oil Capsule 1 cap PO DAILY FACTOR 5 MTV 1 tab PO/SL BID turmeric root extract 500 mg capsule 1,500 mg PO DAILY multivitamin Tablet 1 tab PO DAILY potassium chloride 20 mEq tablet,ER particles/crystals 20 meq PO DAILY magnesium oxide 500 mg Tablet 500 mg PO DAILY lisinopril-hydrochlorothiazide 10-12.5 mg tablet 1 tab PO DAILY Qty: 90 3RF Discontinued metoprolol succinate 25 mg tablet extended release 24 hr 25 mg PO DAILY Referrals / Follow Up: John Gutierrez DO [Primary Care Provider] - In 1 Week Aman Sharpe MD [Med Staff - Active Staff] - Within 2 Weeks Disposition Disposition (needs filled in before D/C Order can be placed): Home, Self Care Charges/Coding Visit Charges OBSV E&M: 50582 Observation care discharge
--- NOTE | 2022-09-17 14:39 | PCM.CONS.C ---
Assessment & Plan Assessment/Plan (1) Atrial fibrillation with RVR: PLAN: Patient is currently in sinus rhythm. We will keep her on low-dose beta-celia (metoprolol 12.5 mg p.o. twice daily). She will ideally need a 30-day event monitor or loop recorder to see if she has long pauses and if she would qualify for a pacemaker as she may be having tachybradycardia syndrome. She is being discharged home on her 24-hour Holter. We will continue the aspirin for now. During one of the syncopal episodes patient just fell straight to the floor. She had another episode where she tripped in the bathroom and hit her face and had a black eye. We will hold off on anticoagulation for now. HPI Consult Data Date of Consult: 09/17/22 HPI Narrative HPI Narrative: MARTHA EMERY, is a 82 F who presents with possible syncope. Patient's spouse heard her groaning in the bathroom and went to check on her. He found her slumped from the toilet onto the tub. She had some slurred speech and CVA was suspected. She has recovered with no neurologic symptoms and MRI was negative for acute stroke. Patient has history of paroxysmal A. fib. She has had episodes of A. fib with rapid ventricular response and during this presentation also appears to have had A. fib with RVR. She has converted to sinus rhythm with PACs. In the past she has had episodes of bradycardia as well. She had 2 episodes of syncope earlier this year which was felt to be vasovagal. Review of systems: All systems reviewed. All else is negative except that in [facility] Medical History A-fib Acquired dysplasia of left hip Anemia Arthritis Atherosclerotic heart disease of [place] coronary artery without angina pectoris Cataracts, bilateral Chest pain Ectopic beat, ventricular Essential hypertension History of kidney stones History of pneumonia Hot flashes Humerus fracture NSTEMI (non-ST elevated myocardial infarction) PAF (paroxysmal atrial fibrillation) Seasonal allergies Vasovagal syncope Home Medications cinnamon bark 500 mg capsule (Cinnamon) 500 mg PO BID supplement 03/13/19 [History Last Taken 09/15/22] aspirin 81 mg tablet,delayed release 81 mg PO [facility] 07/11/19 [History Last Taken 09/15/22] cyanocobalamin (vitamin B-12) 1,000 mcg tablet,extended release 1,000 mcg PO DAILY vitamin 05/12/20 [History Last Taken 09/15/22] donepezil 10 mg tablet 10 mg PO QHS Memory #90 tabs 12/30/21 [Rx Last Taken 09/15/22] atorvastatin 40 mg tablet 40 mg PO DAILY cholesterol 04/14/22 [History Last Taken 09/15/22] lisinopril 10 mg-hydrochlorothiazide 12.5 mg tablet 1 tab PO DAILY #90 tabs 07/21/22 [Rx Last Taken 09/15/22] FACTOR 5 MTV 1 tab PO/SL BID SUPPLEMENT 08/27/22 [History Last Taken 09/15/22] cod liver oil 1 cap PO DAILY SUPPLEMENT 08/27/22 [History Last Taken 09/15/22] quetiapine 25 mg tablet 25 mg PO QHS 09/08/22 [History Last Taken 09/15/22] turmeric root extract 500 mg capsule 1,500 mg PO DAILY SUPPLEMENT 09/10/22 [History Last Taken 09/15/22] magnesium oxide 500 mg tablet 500 mg PO DAILY SUPPLEMENT 09/16/22 [History Last Taken 09/15/22] multivitamin 1 tab PO DAILY SUPPLEMENT 09/16/22 [History Last Taken 09/15/22] potassium chloride 20 mEq tablet,extended release(part/cryst) 20 meq PO DAILY SUPPLEMENT 09/16/22 [History Last Taken 09/15/22] metoprolol succinate 25 mg tablet,extended release 24 hr 12.5 mg PO BID 30 days #30 tabs 09/17/22 [Rx Last Taken Unknown] Allergy/AdvReac Type Severity Reaction Status Date / Time piroxicam [From Feldene] AdvReac Unknown Unknown Verified 09/16/22 09:50 adhesive AdvReac NEEDS Verified 09/16/22 09:50 FOLLOW-UP Family History Other Arthritis Cancer Surgical History History of carpal tunnel release History of section Presence of stent in coronary artery (~07/12/19) Social History Smoking Status: Never smoker alcohol intake: never substance use type: does not use what type of physical activity do you participate in: none Physical Exam Const alert and oriented x3 HEENT normocephalic Eyes no scleral icterus Resp normal respiratory effort Cardio regular rate Psych mental status grossly normal Risk Stratification Risk Stratification Applicable: No Charges/Coding Visit Charges Inpatient E&M: 13864 Init Hosp L2 Objective Data Vital Signs: Vital Signs Temp Pulse Resp BP Pulse Ox O2 Del Method O2 Flow Rate 98 F 67 18 149/91 H 93 Nasal Cannula 2 09/17/22 04:00 09/17/22 12:03 09/17/22 04:00 09/17/22 09:46 09/17/22 04:00 09/17/22 04:00 09/17/22 04:00 Oxygen Flow Rate (L/min) 2 Oxygen Delivery Method Nasal Cannula Weight: 153 lb 10.595 oz Body Mass Index (BMI) 29.2 Intake & Output: Intake and Output for Last 24 Hours 09/15/22 09/16/22 09/17/22 23:59 23:59 23:59 Intake Total 300 / 300 160 / 160 Output Total 0 / 0 Balance 300 / 300 160 / 160 Lab / Micro Data Result Diagrams: 09/17/22 03:20 09/17/22 03:20 Labs: Laboratory Results - last 24 hr 09/16/22 10:15: Hemoglobin A1c 5.5 09/17/22 03:20: WBC 6.9, RBC 4.44, Hgb 14.2, Hct 43.3, MCV 97.5, MCH 32.0, MCHC 32.8, RDW Std Deviation 46.1 H, RDW Coeff of Hafsa 12.9, Plt Count 144 L, MPV 11.1, Immature Gran % (Auto) 0.100, Neut % (Auto) 65.3, Lymph % (Auto) 22.7, Dawson % (Auto) 9.1, Eos % (Auto) 2.5, Baso % (Auto) 0.3, Absolute Neuts (auto) 4.5, Absolute Lymphs (auto) 1.57, Nucleated RBC % 0 09/17/22 03:20: Sodium 139, Potassium 3.4 L, Chloride 102, Carbon Dioxide 29.0, Anion Gap 8, BUN 25 H, Creatinine 0.88, Estim Creat Clear Calc 34.18, Est GFR (MDRD) Af Amer 79, Est GFR (MDRD) Non-Af 65, BUN/Creatinine Ratio 28.5 H, Glucose 101, Calcium 8.7, Total Bilirubin 0.90, AST 18, ALT 21, Alkaline Phosphatase 82, Total Protein 6.5, Albumin 3.0 L, Globulin 3.5, Albumin/Globulin Ratio 0.9, Triglycerides 71, Cholesterol 93, LDL Cholesterol 39, VLDL Cholesterol 14, HDL Cholesterol 40 09/17/22 03:20: Magnesium 2.1 Cardiology Labs/Tests 09/16/22 10:15: Hemoglobin A1c 5.5 09/17/22 03:20: WBC 6.9, RBC 4.44, Hgb 14.2, Hct 43.3, MCV 97.5, MCH 32.0, MCHC 32.8, Plt Count 144 L, MPV 11.1, Immature Gran % (Auto) 0.100, Neut % (Auto) 65.3, Lymph % (Auto) 22.7, Dawson % (Auto) 9.1, Eos % (Auto) 2.5, Baso % (Auto) 0.3, Absolute Neuts (auto) 4.5, Nucleated RBC % 0 09/17/22 03:20: Sodium 139, Potassium 3.4 L, Chloride 102, Carbon Dioxide 29.0, Anion Gap 8, BUN 25 H, Creatinine 0.88, Est GFR (MDRD) Af Amer 79, Est GFR (MDRD) Non-Af 65, BUN/Creatinine Ratio 28.5 H, Glucose 101, Calcium 8.7, Total Bilirubin 0.90, Triglycerides 71, Cholesterol 93, LDL Cholesterol 39, VLDL Cholesterol 14, HDL Cholesterol 40 09/17/22 03:20: Magnesium 2.1 Rhythm: EKG: ECHO: Stress Test: Cardiac Cath: PCI: CT Surgery: Holter monitor: EPS: PPM: CXR: Chest CT Scan: Radiography Diagnostic Testing: Radiology Impression Brain MRI 09/16/22 13:11 IMPRESSION: Moderate periventricular white matter ischemic changes without evidence for acute infarct. Old right temporoparietal infarct Electronically Signed: Luis Alfredo Velazquez MD at 18:50 EST , Echocardiogram 09/16/22 13:11 Interpretation Summary The estimated ejection fraction is 65 %. Unable to assess diastolic dysfunction. The left atrium is moderately enlarged. The right atrium is mildly enlarged. Ordering Physician: Damari Riley Referring Physician: sEtiven Gutierrez M.D. Performed By: Emilia Gonzalez RCS
== END 2022-09-17 13:22 | disposition home or self-care (01) ==
LOC: ED 11:35 → ICU 12:25
PROVIDERS: Admitting Provider Internal Medicine; Emergency Provider Emergency Medicine; PCP Family Medicine; Visit Provider Internal Medicine
DX: R55 Syncope and collapse (principal); I48.0 Paroxysmal atrial fibrillation; E87.6 Hypokalemia; Z79.82 Long term (current) use of aspirin; I25.10 Atherosclerotic heart disease of native coronary artery without angina pectoris; G93.89 Other specified disorders of brain; R47.81 Slurred speech; R00.1 Bradycardia, unspecified; I10 Essential (primary) hypertension; I25.2 Old myocardial infarction
CPT/HCPCS: 70450; 70496; 70498; 70551; 71045; 80048; 80053; 80061; 82962; 83036; 83735; 84484; 85025; 85610; 85730; 92610; 93005; 93225; 93226; 93306; 94762; 96372; 96374; 97802; 99218; 99285; Q9967; A4216; G0378

== ENCOUNTER → 2022-09-17 | Outpatient (CLI) | payer MEDICARE, SELFPAY | END | disposition home or self-care (01) | LOC: PSN 13:47 | PROVIDERS: PCP Family Medicine; Referring Provider Nurse Practitioner Gerontology; Visit Provider Nurse Practitioner Gerontology | DX: Z00.00 Encounter for general adult medical examination without abnormal findings (principal) | CPT/HCPCS: 93225; 93226 ==

== ENCOUNTER 2023-02-14 13:47 | Emergency (ER) | payer MEDICARE, SELFPAY ==
[2023-02-14 13:47] VITALS: BP 155/72; PULSE 58; RESP 16; TEMP 36.4; O2SAT 93
[2023-02-14 14:21] VITALS: BMI 31.6
--- NOTE | 2023-02-14 14:57 | EDS_ITS ---
HPI History of Present Illness Chief Complaint: General Illness Informant: patient and family Narrative Narrative: Presenting here with family evaluation of syncopal episode that occurred 2 days ago. Patient recalls leaving her room going to get Tylenol for her arthritis she was found on the ground by her significant other. This happened previously last time in September when she went into recurrent A-fib and was hospitalized. She takes aspirin no other anticoagulants. She denies any current symptoms. Denies recent vomiting diarrhea. Denies urinary symptoms. Denies chest pains palpitations or cough. Denies fevers. Family decided just to get checked out today with her history. There is been no new events since Tuesday. Prior similar symptoms: Yes PFSH [facility] Medical History A-fib Acquired dysplasia of left hip Anemia Arthritis Atherosclerotic heart disease of [place] coronary artery without angina pectoris Cataracts, bilateral Chest pain Ectopic beat, ventricular Essential hypertension History of kidney stones History of pneumonia Hot flashes Humerus fracture NSTEMI (non-ST elevated myocardial infarction) PAF (paroxysmal atrial fibrillation) Seasonal allergies Vasovagal syncope Home Medications cinnamon bark 500 mg capsule (Cinnamon) 500 mg PO BID supplement 03/13/19 [History Last Taken 09/15/22] aspirin 81 mg tablet,delayed release 81 mg PO Q[facility] 07/11/19 [History Last Taken 09/15/22] cyanocobalamin (vitamin B-12) 1,000 mcg tablet,extended release 1,000 mcg PO DAILY vitamin 05/12/20 [History Last Taken 09/15/22] donepezil 10 mg tablet 10 mg PO QHS Memory #90 tabs 12/30/21 [Rx Last Taken 09/15/22] atorvastatin 40 mg tablet 40 mg PO DAILY cholesterol 04/14/22 [History Last Taken 09/15/22] lisinopril 10 mg-hydrochlorothiazide 12.5 mg tablet 1 tab PO DAILY #90 tabs 07/21/22 [Rx Last Taken 09/15/22] FACTOR 5 MTV 1 tab PO/SL BID SUPPLEMENT 08/27/22 [History Last Taken 09/15/22] cod liver oil 1 cap PO DAILY SUPPLEMENT 08/27/22 [History Last Taken 09/15/22] quetiapine 25 mg tablet 25 mg PO QHS 09/08/22 [History Last Taken 09/15/22] turmeric root extract 500 mg capsule 1,500 mg PO DAILY SUPPLEMENT 09/10/22 [History Last Taken 09/15/22] magnesium oxide 500 mg tablet 500 mg PO DAILY SUPPLEMENT 09/16/22 [History Last Taken 09/15/22] multivitamin 1 tab PO DAILY SUPPLEMENT 09/16/22 [History Last Taken 09/15/22] metoprolol succinate 25 mg tablet,extended release 24 hr 12.5 mg PO BID 30 days #30 tabs 09/17/22 [Rx Last Taken Unknown] potassium chloride 20 mEq tablet,extended release(part/cryst) 20 meq PO DAILY SUPPLEMENT #90 tabs 02/10/23 [Rx Last Taken Unknown] Allergy/AdvReac Type Severity Reaction Status Date / Time piroxicam [From Feldene] AdvReac Unknown Unknown Verified 02/14/23 13:51 adhesive AdvReac NEEDS Verified 02/14/23 13:51 FOLLOW-UP Family History Other Arthritis Cancer Surgical History History of carpal tunnel release History of section Presence of stent in coronary artery (~07/12/19) Social History Smoking Status: Never smoker alcohol intake: never substance use type: does not use what type of physical activity do you participate in: none ROS ROS ED Constitutional Constitutional ED: Denies chills, fever(s) or sweats Eyes Eyes: Denies change in vision ENT ENT ED: Denies dysphagia or sore throat Cardiovascular Cardiovascular: Reports other Details: Syncope ; Denies chest pain, leg edema, palpitations or racing heartbeat Respiratory/Chest Respiratory/Chest: Denies cough, dyspnea or dyspnea on exertion Gastrointestinal Gastrointestinal: Denies abdominal pain, diarrhea, nausea or vomiting Genitourinary Genitourinary ED: Denies dysuria, hematuria or urinary frequency Musculoskeletal Musculoskeletal: Denies back pain, extremity pain or neck pain Integumentary Denies rash or wounds Neurologic Neurologic: Denies headache(s), paresthesias or weakness EXAM Physical Exam Const Vital Signs: 02/14/23 13:47 02/14/23 14:20 Temperature 97.5 F L Temperature Source Temporal Pulse Rate 58 L Respiratory Rate 16 Respiratory Effort Normal Non-Labored Respiratory Pattern Normal Blood Pressure 155/72 H Blood Pressure Mean 99 Pulse Ox 93 Oxygen Delivery Method Room Air Positive well nourished and well developed General Appearance ED: well developed and NAD HEENT Reports moist mucous membranes normocephalic and atraumatic Eyes PERRL, EOMs intact bilaterally and conjunctivae normal General Eye ED: Yes normal appearance of both eyes Neck no lymphadenopathy and supple General: Negative for tenderness Chest Wall Chest: Negative for tenderness Resp normal respiratory effort and normal air movement Effort and Inspection: symmetric chest movement; Negative for respiratory distress Cardio regular rate, regular rhythm and no murmurs Peripheral Pulses: pulses 2+ throughout GI normal to inspection, nondistended, normoactive bowel sounds and non-tender Palpation: Negative for guarding or rebound tenderness present Back/Spine no CVA tenderness and no thoracic nor lumbar tenderness Extremity normal to inspection General Extremety ED: Negative for edema or tenderness General Extremity: Negative for edema Neuro oriented x3, CN's II-XII intact bilaterally and no sensory deficits noted Sensorium / Orientation: awake and alert Skin no rashes or lesions noted and no wounds MDM MDM MDM Narrative Medical decision making narrative: Interventions / MDM: Differential diagnosis: Syncope, cardiac dysrhythmia Diagnosis considered but do not suspect: N/A My EKG interpretation: Sinus rate of 55, no ST changes, T wave version leads III. Nonspecific. QTc 476. Imaging independently reviewed and interpreted by myself: N/A External documents reviewed: N/A Test considered but not ordered:N/A ED course: Patient syncopal episode occurred 2 days ago she has been ambulating with no return of symptoms she does have cardiac history normal sinus rhythm on EKG basic labs obtained insufficiency creatinine 1.12 up from 0.8 previously. Hemoglobin 13.2. Clinically stable no focal neurologic deficit. Do not feel admission is necessary as this occurred 2 days ago with no return of symptoms however did set up 40-hour Holter monitor through the ED for further evaluation. Strict return precautions discussed with patient and family. Outpatient follow-up to recheck labs. All questions were answered. Re-evaluation: stable Disposition discussed with patient/family/significant other: Patient and family Case discussed with consulting clinician: N/A Lab Data Attestation: I reviewed the patient's lab results. Labs: Laboratory Results - last 24 hr 02/14/23 02/14/23 15:10 15:10 WBC 5.6 RBC 4.09 L Hgb 13.2 Hct 39.9 MCV 97.6 MCH 32.3 H MCHC 33.1 RDW Std Deviation 47.9 H RDW Coeff of Hafsa 13.5 Plt Count 167 MPV 11.0 Immature Gran % (Auto) 0.400 Neut % (Auto) 56.9 Lymph % (Auto) 25.8 Grand % (Auto) 9.7 Eos % (Auto) 6.8 H Baso % (Auto) 0.4 Absolute Neuts (auto) 3.2 Absolute Lymphs (auto) 1.44 Nucleated RBC % 0 Sodium 138 Potassium 3.7 Chloride 104 Carbon Dioxide 30.0 Anion Gap 4 L BUN 12 Creatinine 1.12 H Estim Creat Clear Calc 41.91 Est GFR (MDRD) Af Amer 60 Est GFR (MDRD) Non-Af 49 L BUN/Creatinine Ratio 10.7 Glucose 119 H Calcium 8.7 Discharge Plan Triage Chief Complaint: General Illness ED Provider: Poncho Elizabeth Dx/Rx/DC Orders Clinical Impression: Syncope, Acute renal insufficiency, History of atrial fibrillation Instructions: Causes of Syncope, ED Renal Insufficiency Prescriptions: No Action cinnamon bark [Cinnamon] 500 mg capsule 500 mg PO BID cyanocobalamin (vitamin B-12) 1,000 mcg tablet extended release 1,000 mcg PO DAILY donepezil 10 mg tablet 10 mg PO QHS Qty: 90 2RF atorvastatin 40 mg tablet 40 mg PO DAILY quetiapine 25 mg tablet 25 mg PO QHS aspirin 81 MG tablet,delayed release (DR/EC) 81 mg PO QHS cod liver oil Capsule 1 cap PO DAILY FACTOR 5 MTV 1 tab PO/SL BID turmeric root extract 500 mg capsule 1,500 mg PO DAILY multivitamin Tablet 1 tab PO DAILY magnesium oxide 500 mg Tablet 500 mg PO DAILY metoprolol succinate 25 mg Tablet Extended Release 24 Hr 12.5 mg PO BID 30 Days Qty: 30 0RF lisinopril-hydrochlorothiazide 10-12.5 mg tablet 1 tab PO DAILY Qty: 90 3RF potassium chloride 20 mEq tablet,ER particles/crystals 20 meq PO DAILY Qty: 90 3RF Primary Care Provider: John Gutierrez Referrals: John Gutierrez, [Primary Care Provider] - 3-5 Days Activity Restrictions/Additional Instructions: You are in a normal sinus rhythm today. 48-hour Holter monitor is placed. Your kidney function 1.12 today, up from 0.8. You are given fluids. Continue oral fluids at home. Follow-up with your doctor for recheck labs. Return if any recurrent or worsening symptoms. Disposition Disposition: Home, Self Care
[2023-02-14 15:20] LABS: Absolute Lymphocyte Count 1.44 X10^3/uL (0.83-4.51); Absolute Neutrophil Count 3.2 X10^3/uL (2.0-7.7); Basophil# 0.02 X10^3/uL; Basophil% 0.4 % (0-1); Eosinophil# 0.38 X10^3/uL; Eosinophils% 6.8 % (0-5); Hematocrit 39.9 % (37-47); Hemoglobin 13.2 g/dL (12.0-15.0); Lymphocyte # 1.44 X10^3/ul (0.83-4.51); Lymphocyte % 25.8 % (19-41); Mean Corp Hgb Conc 33.1 g/dL (32-36); Mean Corpuscular Hgb 32.3 pg (27.0-32.0); Mean Corpuscular Volume 97.6 fL (81-99); Monocyte# 0.54 X10^3/uL; Monocyte% 9.7 % (0-10); NRBC Flagged by Analyzer 0 % (0-5); Neutrophil # 3.18 X10^3/uL (2.7-7.7); Neutrophil % 56.9 % (47-70); Platelet Count 167 K/mm3 (150-450); RBC Distribution Width CV 13.5 % (11.6-14.6); RBC Distribution Width SD 47.9 fl (35.1-43.9); Red Blood Count 4.09 M/mm3 (4.2-5.4); White Blood Count 5.6 K/mm3 (4.4-11.0)
[2023-02-14 15:37] LABS: Anion Gap 4 (5-15); BUN 12 mg/dL (7-18); BUN/Creat Ratio 10.7 RATIO (10-20); Calcium,Total 8.7 mg/dL (8.5-10.1); Chloride 104 mmol/L (98-107); Creatinine, Serum 1.12 mg/dL (0.55-1.02); EST Glomerular Filtration Rate 49 mL/min (>60); Est Glom Filt Rate - Afr Amer 60 mL/min (>60); Estimated Creatinine Clearance 41.91 ml/min; Glucose 119 mg/dL (74-106); Potassium 3.7 mmol/L (3.5-5.1); Sodium Level 138 mmol/L (136-145)
[2023-02-14 16:07] VITALS: BP 154/63; PULSE 56; RESP 23; O2SAT 93
[2023-02-14 16:33] VITALS: BP 165/73; PULSE 57; RESP 20; O2SAT 93
== END 2023-02-14 17:10 | disposition home or self-care (01) ==
PROVIDERS: Emergency Provider Emergency Medicine; PCP Family Medicine; Visit Provider Emergency Medicine
DX: R55 Syncope and collapse (principal); I48.0 Paroxysmal atrial fibrillation; N28.9 Disorder of kidney and ureter, unspecified; I10 Essential (primary) hypertension; I25.10 Atherosclerotic heart disease of native coronary artery without angina pectoris; Z79.82 Long term (current) use of aspirin; I25.2 Old myocardial infarction; Z95.5 Presence of coronary angioplasty implant and graft
CPT/HCPCS: 80048; 85025; 93005; 93225; 93226; 96360; 99285; J7040

== ENCOUNTER → 2023-02-14 | Outpatient (CLI) | payer MEDICARE, SELFPAY | END | disposition home or self-care (01) | LOC: PSN 16:07 | PROVIDERS: PCP Family Medicine; Visit Provider Emergency Medicine | DX: R55 Syncope and collapse (principal) ==

== ENCOUNTER 2023-03-16 00:46 | Inpatient (IN) | payer MEDICARE, SELFPAY ==
[2023-03-16] VITALS (13 sets, daily range): BP systolic 106–146; BP diastolic 69–107; PULSE 85–125; RESP 15–18; TEMP 36.2–36.7; O2SAT 91–95; BMI 29.9; BMI 28.3
--- NOTE | 2023-03-16 02:13 | EKG12_ITS ---
Test Reason : FALL Blood Pressure : / mmHG Vent. Rate : 105 BPM Atrial Rate : 315 BPM P-R Int : 000 ms QRS Dur : 084 ms QT Int : 374 ms P-R-T Axes : 000 -07 016 degrees QTc Int : 494 ms Atrial flutter with variable A-V block with premature ventricular or aberrantly conducted complexes Abnormal ECG Confirmed by KASEY MARIA, JENELLE ([id number]), health editor SKINNY OREILLY ([id number]) on 03/16/2023 1:01:30 PM Referred By: DARA Confirmed By:FRANSISCO PARKS MD
--- NOTE | 2023-03-16 02:13 | CT_ITS ---
EXAM: CT HEAD WITHOUT INTRAVENOUS CONTRAST CLINICAL INDICATION: None provided. syncope TECHNIQUE: Multiple axial images were obtained of the head without intravenous contrast. This CT exam was performed using one or more of the following dose reduction techniques: automated exposure control, adjustment of the mA and/or kV according to patient size, and/or use of iterative reconstruction technique. RADIATION DOSE: CTDIvol = 44.99 mGy, DLP = 728.62 mGy-cm COMPARISON: September 16, 2022 FINDINGS: BRAIN AND EXTRA-AXIAL SPACES: Moderate cerebral volume loss and white matter changes. Large zone of chronic encephalomalacia in the right [id number] region and mild-moderate chronic white matter changes. No intra- or extra-axial hemorrhage. No evidence of acute infarct. No intracranial mass or mass effect. There is preservation of the richardson/white matter interface. Posterior fossa structures are unremarkable. Basal cisterns are patent. BONES/JOINTS: See below. SOFT TISSUES: Soft tissue swelling in the forehead, suspected contusion. VASCULATURE: Moderate calcification of intracranial vertebral arteries and ICAs, similar to prior exam. SINUSES: Unremarkable as visualized. Clear. MASTOID AIR CELLS: Unremarkable. Clear. ORBITS: Visualized globes, extraocular muscles, optic nerves and retrobulbar fat appear unremarkable. NASAL CAVITY/SEPTUM: Angulated nasal bones left deviation of the anterior bony nasal septum, similar to prior exam. CT/Brain/Head without Contrast IMPRESSION: Advanced chronic changes. 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 No acute intracranial abnormality. Forehead scalp swelling, presumed contusion. Electronically Signed: Liz Gutierrez MD at 3:58 EDT ,
--- NOTE | 2023-03-16 02:13 | RAD_ITS ---
EXAM: XR LEFT HIP WITH PELVIS WHEN PERFORMED, 2 OR 3 VIEWS CLINICAL INDICATION: None provided. pain TECHNIQUE: Two or three views of the left hip with pelvis when performed. COMPARISON: March 23, 2019 pelvis and left hip views FINDINGS: BONES/JOINTS: Unremarkable. No displaced fracture. No destructive or sclerotic lesions. Note that overlapping bowel shadows may however obscure fine detail. Sacroiliac joint is unremarkable. No widening of the pubic symphysis. The articular structures are unremarkable. SOFT TISSUES: Unremarkable. No soft tissue swelling or gas. RAD/HIP, UNI W/ Pelvis 2-3 Views IMPRESSION: No acute left hemipelvis or hip fracture. Electronically Signed: Liz Gutierrez MD at 4:09 EDT ,
--- NOTE | 2023-03-16 02:13 | CT_ITS ---
EXAM: CT CERVICAL SPINE WITHOUT INTRAVENOUS CONTRAST CLINICAL INDICATION: None provided. pain TECHNIQUE: Helically acquired images were obtained of the cervical spine without intravenous contrast. 2D reformatted images were reviewed. This CT exam was performed using one or more of the following dose reduction techniques: automated exposure control, adjustment of the mA and/or kV according to patient size, and/or use of iterative reconstruction technique. RADIATION DOSE: CTDIvol = 13.01 mGy, DLP = 246.12 mGy-cm COMPARISON: No relevant prior studies available. FINDINGS: VERTEBRAE: Straightening of the usual lordotic curvature. Heterogeneous bone density and demineralization. No fracture or subluxation identified. DISCS/SPINAL CANAL/NEURAL FORAMINA: Marked disc space narrowing at C3-4, C4-5, and moderate narrowing at C5-6. Ligamentous ossification and spondylosis anteriorly at multiple levels. Posterior bulging discs associated with mild spinal stenosis, most pronounced at C4-5 the AP diameter of the canal is estimated to be 7 mm in the midline due to protruding disc. SOFT TISSUES: Unremarkable. No prevertebral soft tissue swelling. LYMPH NODES: Unremarkable. No cervical adenopathy. LUNG APICES: Unremarkable as visualized. Clear. CT/Spine Cervical without Contras IMPRESSION: 1. No acute posttraumatic abnormality. 2. Degenerative changes. Mild spinal stenosis due to central-left posterior disc protrusion at C3-4. Electronically Signed: Liz Gutierrez MD at 4:04 EDT ,
--- NOTE | 2023-03-16 02:13 | RAD_ITS ---
EXAM: XR RIGHT SHOULDER COMPLETE, 2 OR MORE VIEWS CLINICAL INDICATION: None provided. pain TECHNIQUE: Two or more views of the right shoulder. COMPARISON: No relevant prior studies available. Right shoulder is included on chest radiograph September 16, 2022, similar hypertrophic and degenerative changes. FINDINGS: BONES/JOINTS: Hypertrophic change and presumed old healed fracture of the right humeral head-neck with thick hypertrophic bone. Narrowed AC joint. No shoulder dislocation. No sclerotic or destructive changes observed. SOFT TISSUES: Unremarkable. No soft tissue swelling or gas. No radiopaque foreign body. RAD/Shoulder min 2 Views IMPRESSION: Advanced chronic changes and presumed old healed proximal right humerus fracture. No convincing acute fractures. Electronically Signed: Liz Gutierrez MD at 4:07 EDT ,
[2023-03-16 02:51] LABS: Absolute Lymphocyte Count 1.12 X10^3/uL (0.83-4.51); Absolute Neutrophil Count 2.1 X10^3/uL (2.0-7.7); Basophil# 0.01 X10^3/uL; Basophil% 0.3 % (0-1); Eosinophil# 0.22 X10^3/uL; Eosinophils% 5.9 % (0-5); Hematocrit 27.6 % (37-47); Hemoglobin 8.8 g/dL (12.0-15.0); Lymphocyte # 1.12 X10^3/ul (0.83-4.51); Mean Corp Hgb Conc 31.9 g/dL (32-36); Mean Corpuscular Hgb 31.9 pg (27.0-32.0); Mean Platelet Vol. 10.2 fl (6.2-12.0); Monocyte# 0.31 X10^3/uL; Monocyte% 8.3 % (0-10); NRBC Flagged by Analyzer 0 % (0-5); Neutrophil # 2.06 X10^3/uL (2.7-7.7); Neutrophil % 55.2 % (47-70); Platelet Count 119 K/mm3 (150-450); RBC Distribution Width CV 14.1 % (11.6-14.6); RBC Distribution Width SD 51.2 fl (35.1-43.9); Red Blood Count 2.76 M/mm3 (4.2-5.4); White Blood Count 3.7 K/mm3 (4.4-11.0)
[2023-03-16] MEDS: Ondansetron 4 MG/2 ML Vial IV (02:54)
[2023-03-16] MEDS: Morphine 2 MG/ML Syringe IV (02:54)
[2023-03-16] MEDS: Metoprolol Tartrate 5 MG/5 ML Vial IV (02:54)
[2023-03-16 03:04] LABS: Anion Gap 6 (5-15); BUN 11 mg/dL (7-18); BUN/Creat Ratio 13.9 RATIO (10-20); Calcium,Total 8.7 mg/dL (8.5-10.1); Chloride 105 mmol/L (98-107); Creatinine, Serum 0.79 mg/dL (0.55-1.02); EST Glomerular Filtration Rate 73 mL/min (>60); Est Glom Filt Rate - Afr Amer 89 mL/min (>60); Estimated Creatinine Clearance 29.54 ml/min; Glucose 105 mg/dL (74-106); Magnesium 1.8 mg/dL (1.6-2.6); Sodium Level 139 mmol/L (136-145)
[2023-03-16] MEDS: 0.9% Normal Saline 1,000 ML 999 ML IV (04:10)
[2023-03-16] MEDS: Potassium Chloride 10mEq/100mL 10 MEQ/100 ML IV.SOLN. 100 MEQ IV BOLUS ×4 (04:10→09:06)
--- NOTE | 2023-03-16 04:39 | CT_ITS ---
EXAM: CT ANGIOGRAPHY CHEST WITHOUT AND WITH INTRAVENOUS CONTRAST CLINICAL INDICATION: None provided. hypoxia / ? PE TECHNIQUE: Helically acquired angiography images were obtained of the chest without and with intravenous contrast. This CT exam was performed using one or more of the following dose reduction techniques: automated exposure control, adjustment of the mA and/or kV according to patient size, and/or use of iterative reconstruction technique. MIP reconstructed images were created and reviewed. RADIATION DOSE: CTDIvol = 16.40 mGy, DLP = 435.25 mGy-cmContrast: IV 100mL [id number] COMPARISON: July 11, 2019. FINDINGS: PULMONARY ARTERIES: Unremarkable. No evidence of PE or aortic aneurysm or dissection. AORTA: Unremarkable. Normal in caliber. No evidence of dissection. GREAT VESSELS OF AORTIC ARCH: Unremarkable. Normal in caliber. No evidence of dissection. LUNGS AND PLEURAL SPACES: Mild increased interstitial markings suspicious for mild interstitial edema throughout most of the lungs. No confluent alveolar infiltrate or effusion. No central airway obstruction. No mass. HEART: Mild fluid in the superior pericardial recesses. Upper limits of normal heart size. No intracardiac filling defect. Mild coronary artery calcifications. Mild contrast reflux into the IVC and hepatic veins. MEDIASTINUM: Mildly prominent mediastinal lymph nodes including 1.1 cm right precarinal short axis lymph node, 1.3 cm right paratracheal short axis lymph node, right hilar 1.7 cm short axis lymph node. Esophagus is unremarkable. No hiatal hernia. THYROID: Unremarkable. No thyroid lesions. BONES/JOINTS: Chronic degenerative changes and old healed fracture involving the proximal right humerus and shoulder. No suspicious lytic or blastic abnormality. OTHER FINDINGS: Most of the abdomen is not included. CT/CTA Chest W/WO Contrast IMPRESSION: No PE or aortic aneurysm or dissection. Borderline mediastinal lymph nodes and mild right hilar adenopathy. Similar to 2019. Mild fluid in the superior pericardial recesses. Mild pulmonary interstitial edema. Mild coronary artery calcifications. Stable chronic change of the right shoulder. Electronically Signed: Liz Gutierrez MD at 6:00 EDT ,
--- NOTE | 2023-03-16 06:11 | PCM.HP.STD ---
HPI - General General Date of Admission: 03/16/23 Date of Service: 03/16/23 Chief Complaint: Syncope HPI Narrative MARTHA EMERY, is a 83 F with a significant history of syncope and atrial flutter/atrial fibrillation who presents to the emergency department with syncope. Reportedly patient was found on the bedroom floor. She had a bruise on her forehead. She did not know why she was on the floor. Also she complains of pain in her right shoulder and in her left hip. Her who lives with her called one of her daughter's and subsequently patient was brought to the hospital by paramedics. Of note patient has had similar presentations and was on a continuous heart monitor/Holter previously. At the emergency department patient was found to have a significant drop in her hemoglobin. She reports normal color of stool. Emergency department doctor reports brown stool on rectal exams which came back to be occult positive. [facility], LATER [facility] Medical History (Updated 03/16/23 @ 07:[address] Ran Mejias MD) A-fib Acquired dysplasia of left hip Anemia Arthritis Atherosclerotic heart disease of [place] coronary artery without angina pectoris Cataracts, bilateral Chest pain Ectopic beat, ventricular Essential hypertension History of kidney stones History of pneumonia Hot flashes Humerus fracture NSTEMI (non-ST elevated myocardial infarction) PAF (paroxysmal atrial fibrillation) Seasonal allergies Vasovagal syncope Home Medications cinnamon bark 500 mg capsule (Cinnamon) 500 mg PO BID supplement 03/13/19 [History Last Taken 09/15/22] aspirin 81 mg tablet,delayed release 81 mg PO DAILY HEART HEALTH 07/11/19 [History Last Taken 09/15/22] cyanocobalamin (vitamin B-12) 1,000 mcg tablet,extended release 1,000 mcg PO DAILY vitamin 05/12/20 [History Last Taken 09/15/22] donepezil 10 mg tablet 10 mg PO QHS Memory #90 tabs 12/30/21 [Rx Last Taken 09/15/22] atorvastatin 40 mg tablet 40 mg PO QHS cholesterol 04/14/22 [History Last Taken 09/15/22] FACTOR 5 MTV 1 tab PO/SL BID SUPPLEMENT 08/27/22 [History Last Taken 09/15/22] cod liver oil 1 cap PO DAILY SUPPLEMENT 08/27/22 [History Last Taken 09/15/22] quetiapine 25 mg tablet 25 mg PO QHS 09/08/22 [History Last Taken 09/15/22] magnesium oxide 500 mg tablet 500 mg PO DAILY SUPPLEMENT 09/16/22 [History Last Taken 09/15/22] multivitamin 1 tab PO DAILY SUPPLEMENT 09/16/22 [History Last Taken 09/15/22] metoprolol succinate 25 mg tablet,extended release 24 hr 12.5 mg PO BID 30 days #30 tabs 09/17/22 [Rx Last Taken Unknown] potassium chloride 20 mEq tablet,extended release(part/cryst) 20 meq PO DAILY SUPPLEMENT #90 tabs 02/10/23 [Rx Last Taken Unknown] ARTERY CARE 4 tab BID 03/16/23 [History Last Taken Unknown] Lactobacillus acidophilus and rhamnosus 15 billion cell capsule (Probiotic) 30 cap PO 03/16/23 [History Last Taken Unknown] lisinopril 10 mg-hydrochlorothiazide 12.5 mg tablet 1 tab PO QHS 03/16/23 [History Last Taken Unknown] lorazepam 0.5 mg tablet 0.5 mg PO QHS 03/16/23 [History Last Taken Unknown] oxycodone 5 mg tablet 5 mg PO Q8H PRN Pain 03/16/23 [History Last Taken Unknown] sertraline 25 mg tablet (Zoloft) 25 mg PO DAILY 03/16/23 [History Last Taken Unknown] Allergy/AdvReac Type Severity Reaction Status Date / Time piroxicam [From Feldene] AdvReac Unknown Unknown Verified 02/14/23 13:51 adhesive AdvReac NEEDS Verified 02/14/23 13:51 FOLLOW-UP Family History Other Arthritis Cancer Surgical History History of carpal tunnel release History of section Presence of stent in coronary artery (~07/12/19) Social History Smoking Status: Never smoker alcohol intake: never substance use type: does not use what type of physical activity do you participate in: none ROS ROS Narrative Pertinent positives and pertinent negatives as noted in HPI. All other systems were reviewed and are negative Vital Signs Vital Signs Vital Signs: 03/16/23 00:48 03/16/23 03:39 03/16/23 03:56 Temperature 98.1 F Temperature Source Oral Pulse Rate 125 H 94 Pulse Rate [Lying] 103 H Pulse Rate [Sitting (for 1 minute prior to obtaining)] 97 Pulse Rate [Standing (for 1 minute prior to obtaining)] 124 H Respiratory Rate 18 15 Blood Pressure 129/93 H 138/91 H Blood Pressure [Lying] 118/96 H Blood Pressure [Sitting (for 1 minute prior to obtaining)] 122/73 H Blood Pressure [Standing (for 1 minute prior to obtaining)] 138/91 H Blood Pressure Mean 105 106 Blood Pressure Mean [Lying] 103 Blood Pressure Mean [Sitting (for 1 minute prior to obtaining)] 89 Blood Pressure Mean [Standing (for 1 minute prior to obtaining)] 106 Pulse Ox 92 91 Oxygen Delivery Method Room Air Nasal Cannula Oxygen Flow Rate (L/min) 2 03/16/23 04:41 Temperature Temperature Source Pulse Rate 101 H Pulse Rate [Lying] Pulse Rate [Sitting (for 1 minute prior to obtaining)] Pulse Rate [Standing (for 1 minute prior to obtaining)] Respiratory Rate 17 Blood Pressure 106/79 Blood Pressure [Lying] Blood Pressure [Sitting (for 1 minute prior to obtaining)] Blood Pressure [Standing (for 1 minute prior to obtaining)] Blood Pressure Mean 88 Blood Pressure Mean [Lying] Blood Pressure Mean [Sitting (for 1 minute prior to obtaining)] Blood Pressure Mean [Standing (for 1 minute prior to obtaining)] Pulse Ox 93 Oxygen Delivery Method Nasal Cannula Oxygen Flow Rate (L/min) 3 Weight Weight: 69.7 kg Body Mass Index (BMI) 29.9 Physical Exam Narrative Physical exam: General: Well-nourished, well-developed. Head: Ecchymosis at mid forehead. Normocephalic. Eyes: Vision is grossly intact. EOMI ENT, no trauma, moist mucous membranes, no rhinorrhea Neck: Nontender, No thyromegaly. CVS: Irregularly irregular rate and rhythm. S1-S2 present. No murmur, gallop or rub. Respiratory : clear to auscultation bilaterally, chest wall nontender Abdomen: Soft, nontender, nondistended, normal bowel sounds, no masses : Deferred Back: Nontender, no CVA tenderness. Extremities: No edema. Nontender. Skin: Normal color, no trauma, abrasions Neuro: Alert, cranial nerves II through XII grossly intact. Psychiatry: Normal mood. Normal affect. Not depressed. Not anxious. Results Lab / Micro Data Result Diagrams: 03/16/23 02:45 03/16/23 02:45 Labs: Laboratory Results - last 24 hr 03/16/23 02:45: Sodium 139, Potassium 3.0 L, Chloride 105, Carbon Dioxide 28.0, Anion Gap 6, BUN 11, Creatinine 0.79, Estim Creat Clear Calc 29.54, Est GFR (MDRD) Af Amer 89, Est GFR (MDRD) Non-Af 73, BUN/Creatinine Ratio 13.9, Glucose 105, Calcium 8.7, Magnesium 1.8 03/16/23 02:45: WBC 3.7 L, RBC 2.76 L, Hgb 8.8 L, Hct 27.6 L, MCV 100.0 H, MCH 31.9, MCHC 31.9 L, RDW Std Deviation 51.2 H, RDW Coeff of Hafsa 14.1, Plt Count 119 L, MPV 10.2, Immature Gran % (Auto) 0.300, Neut % (Auto) 55.2, Lymph % (Auto) 30.0, [place] % (Auto) 8.3, Eos % (Auto) 5.9 H, Baso % (Auto) 0.3, Absolute Neuts (auto) 2.1, Absolute Lymphs (auto) 1.12, Nucleated RBC % 0 Micro: Microbiology 03/16/23 03:35 Stool Stool Occult Blood ([facility]) - Final Occult Blood Positive Radiology Impression Brain CT 03/16/23 02:13 IMPRESSION: Advanced chronic changes. 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 No acute intracranial abnormality. Forehead scalp swelling, presumed contusion. Electronically Signed: Liz Gutierrez MD at 3:58 EDT , Cervical Spine CT 03/16/23 02:13 IMPRESSION: 1. No acute posttraumatic abnormality. 2. Degenerative changes. Mild spinal stenosis due to central-left posterior disc protrusion at C3-4. Electronically Signed: Liz Gutierrez MD at 4:04 EDT , Hip/Pelvis X-Ray 03/16/23 02:13 IMPRESSION: No acute left hemipelvis or hip fracture. Electronically Signed: Liz Gutierrez MD at 4:09 EDT Reading Location ID and State: [facility] / [place] Tel , Service support , Shoulder X-Ray 03/16/23 02:13 IMPRESSION: Advanced chronic changes and presumed old healed proximal right humerus fracture. No convincing acute fractures. Electronically Signed: Liz Gutierrez MD at 4:07 EDT Reading Location ID and State: [address] [place] [address] Tel , Service support , Chest CTA 03/16/23 04:39 IMPRESSION: No PE or aortic aneurysm or dissection. Borderline mediastinal lymph nodes and mild right hilar adenopathy. Similar to 2019. Mild fluid in the superior pericardial recesses. Mild pulmonary interstitial edema. Mild coronary artery calcifications. Stable chronic change of the right shoulder. Electronically Signed: Liz Gutierrez MD at 6:00 EDT Reading Location ID and State: [address] [place] [address] Tel , Service support , Assessment & Plan Assessment/Plan (1) Syncope and collapse: (2) Acute blood loss anemia: (3) A-fib: QUALIFIERS: Atrial fibrillation type: paroxysmal Qualified Code(s): I48.0 - Paroxysmal atrial fibrillation PLAN: Plan Syncope and Collapse EKG independently reviewed showed a flutter with rate of 105. Shoulder x-ray showed old healed proximal right humerus fracture. Impression of hip and pelvis x-ray by radiologist: No acute left hemipelvis or hip fracture. Hip and pelvis x-ray independent interpretation by hospitalist: Agrees with radiologist impression. As needed Tylenol ordered for pain. Apply ice to affected areas as necessary. Orthostatic vitals per protocol Review of records show that patient had Holter monitor on 2 occasions. In September 2022 ending February 2023. Holter monitor showed ectopy. A-fib was not noted on all 2 episodes. Atrial fibrillation with RVR/a flutter Not new Emergency department doctor discussed the case with cardiology. At this time patient is not a candidate for anticoagulation secondary to a forehead contusion seen on brain CT. Home metoprolol p.o. escalated. As needed IV metoprolol ordered. Hypertension Blood pressure is stable. Of note patient received metoprolol IV at the emergency department for A-fib with RVR. Hold home lisinopril/hydrochlorothiazide. Home metoprolol escalated. Trend blood pressures. Acute blood loss anemia Hemoglobin on presentation was 8.8. Her hemoglobin months before presentation was 13.2. Positive occult blood in the emergency department. We will keep patient n.p.o. except essential meds. Protonix IV ordered. Trend H&H. GI consult. Hypoxia Found to have oxygen saturation of 88% on room air at the emergency department. CTA chest showed some interstitial edema and mild fluid in the superior pericardial recesses. Last echocardiogram was on 02/24/2022. Echocardiogram showed ejection fraction of 60%. Right ventricular systolic pressure was 41 mmHg. No hemodynamically significant valvular abnormality. Repeat echocardiogram ordered. Continue oxygen supplementation started at the emergency department. Titrate oxygen as needed. Hypokalemia Potassium 3.0 on presentation. IV potassium ordered. Hold home p.o. potassium. Trend. Magnesium is 1.8. Replace. DVT prophylaxis Not a candidate of chemical thromboprophylaxis secondary to GI bleed. SCDs ordered. Charges/Coding Visit Charges Inpatient E&M: 45315 Init Hosp L3
--- NOTE | 2023-03-16 06:25 | EX.ED.DYSGE1 ---
HPI History of Present Illness Chief Complaint: Fall Narrative Narrative: Patient is an 83-year-old female with past medical history of CAD as well as paroxysmal atrial flutter who is only on a baby aspirin and not true anticoagulation. She was worked up in September 2022 secondary to this abnormal heart rhythm and syncopal event. Patient states that this evening around 930 or 10 PM she was in her kitchen and then she remembers waking up on the floor. She states that there was no prodrome of palpitations chest pain or tunnel vision or lightheaded or dizzy sensation prior to the event. She states that last time this occurred she was in an abnormal heart rhythm and has concern for it once again and therefore comes in for evaluation. [facility] Medical History (Updated 03/16/23 @ 07:[address] Ran Mejias MD) A-fib Acquired dysplasia of left hip Anemia Arthritis Atherosclerotic heart disease of [place] coronary artery without angina pectoris Cataracts, bilateral Chest pain Ectopic beat, ventricular Essential hypertension History of kidney stones History of pneumonia Hot flashes Humerus fracture NSTEMI (non-ST elevated myocardial infarction) PAF (paroxysmal atrial fibrillation) Seasonal allergies Vasovagal syncope Home Medications cinnamon bark 500 mg capsule (Cinnamon) 500 mg PO BID supplement 03/13/19 [History Last Taken 09/15/22] aspirin 81 mg tablet,delayed release 81 mg PO DAILY HEART HEALTH 07/11/19 [History Last Taken 09/15/22] cyanocobalamin (vitamin B-12) 1,000 mcg tablet,extended release 1,000 mcg PO DAILY vitamin 05/12/20 [History Last Taken 09/15/22] donepezil 10 mg tablet 10 mg PO QHS Memory #90 tabs 12/30/21 [Rx Last Taken 09/15/22] atorvastatin 40 mg tablet 40 mg PO QHS cholesterol 04/14/22 [History Last Taken 09/15/22] FACTOR 5 MTV 1 tab PO/SL BID SUPPLEMENT 08/27/22 [History Last Taken 09/15/22] cod liver oil 1 cap PO DAILY SUPPLEMENT 08/27/22 [History Last Taken 09/15/22] quetiapine 25 mg tablet 25 mg PO QHS 09/08/22 [History Last Taken 09/15/22] magnesium oxide 500 mg tablet 500 mg PO DAILY SUPPLEMENT 09/16/22 [History Last Taken 09/15/22] multivitamin 1 tab PO DAILY SUPPLEMENT 09/16/22 [History Last Taken 09/15/22] metoprolol succinate 25 mg tablet,extended release 24 hr 12.5 mg PO BID 30 days #30 tabs 09/17/22 [Rx Last Taken Unknown] potassium chloride 20 mEq tablet,extended release(part/cryst) 20 meq PO DAILY SUPPLEMENT #90 tabs 02/10/23 [Rx Last Taken Unknown] ARTERY CARE 4 tab BID 03/16/23 [History Last Taken Unknown] Lactobacillus acidophilus and rhamnosus 15 billion cell capsule (Probiotic) 30 cap PO 03/16/23 [History Last Taken Unknown] lisinopril 10 mg-hydrochlorothiazide 12.5 mg tablet 1 tab PO QHS 03/16/23 [History Last Taken Unknown] lorazepam 0.5 mg tablet 0.5 mg PO QHS 03/16/23 [History Last Taken Unknown] oxycodone 5 mg tablet 5 mg PO Q8H PRN Pain 03/16/23 [History Last Taken Unknown] sertraline 25 mg tablet (Zoloft) 25 mg PO DAILY 03/16/23 [History Last Taken Unknown] Allergy/AdvReac Type Severity Reaction Status Date / Time piroxicam [From Feldene] AdvReac Unknown Unknown Verified 02/14/23 13:51 adhesive AdvReac NEEDS Verified 02/14/23 13:51 FOLLOW-UP Family History Other Arthritis Cancer Surgical History History of carpal tunnel release History of section Presence of stent in coronary artery (~07/12/19) Social History Smoking Status: Never smoker alcohol intake: never substance use type: does not use what type of physical activity do you participate in: none ROS ROS ED Constitutional Constitutional ED: Denies chills or fever(s) Eyes Eyes: Denies change in vision ENT ENT ED: Denies sore throat Cardiovascular Cardiovascular: Denies chest pain, palpitations or racing heartbeat Respiratory/Chest Respiratory/Chest: Denies cough or dyspnea Gastrointestinal Gastrointestinal: Denies abdominal pain, diarrhea, nausea or vomiting Genitourinary Genitourinary ED: Denies dysuria Musculoskeletal Musculoskeletal: Reports neck pain and other Details: Positive right shoulder positive right hip and positive neck pain ; Denies back pain or myalgias Integumentary Reports other Details: Positive hematoma/bruising ; Denies rash Neurologic Neurologic: Reports other Details: Positive syncope ; Denies headache(s) Hematologic/Lymphatic Hematologic/Lymphatic: Denies easy bleeding or easy bruising EXAM Physical Exam Const Vital Signs: 03/16/23 00:48 03/16/23 03:39 03/16/23 03:56 Temperature 98.1 F Temperature Source Oral Pulse Rate 125 H 94 Pulse Rate [Lying] 103 H Pulse Rate [Sitting (for 1 minute prior to obtaining)] 97 Pulse Rate [Standing (for 1 minute prior to obtaining)] 124 H Respiratory Rate 18 15 Blood Pressure 129/93 H 138/91 H Blood Pressure [Lying] 118/96 H Blood Pressure [Sitting (for 1 minute prior to obtaining)] 122/73 H Blood Pressure [Standing (for 1 minute prior to obtaining)] 138/91 H Blood Pressure Mean 105 106 Blood Pressure Mean [Lying] 103 Blood Pressure Mean [Sitting (for 1 minute prior to obtaining)] 89 Blood Pressure Mean [Standing (for 1 minute prior to obtaining)] 106 Pulse Ox 92 91 Oxygen Delivery Method Room Air Nasal Cannula Oxygen Flow Rate (L/min) 2 03/16/23 04:41 Temperature Temperature Source Pulse Rate 101 H Pulse Rate [Lying] Pulse Rate [Sitting (for 1 minute prior to obtaining)] Pulse Rate [Standing (for 1 minute prior to obtaining)] Respiratory Rate 17 Blood Pressure 106/79 Blood Pressure [Lying] Blood Pressure [Sitting (for 1 minute prior to obtaining)] Blood Pressure [Standing (for 1 minute prior to obtaining)] Blood Pressure Mean 88 Blood Pressure Mean [Lying] Blood Pressure Mean [Sitting (for 1 minute prior to obtaining)] Blood Pressure Mean [Standing (for 1 minute prior to obtaining)] Pulse Ox 93 Oxygen Delivery Method Nasal Cannula Oxygen Flow Rate (L/min) 3 Positive well nourished and well developed General Appearance ED: well developed HEENT HEENT Narrative: A 2 x 3 cm hematoma to the midportion of the frontal section of the scalp without signs of depressed or basilar skull fracture No septal hematoma noted Eyes PERRL and EOMs intact bilaterally Eyes Narrative: No hyphema Neck supple Neck Narrative: No bony deformity or step-off of the cervical spine but there is midline pain with palpation Chest Wall palpation of chest normal Resp normal respiratory effort and clear to auscultation bilaterally Cardio Rate: other Other Details: Irregularly irregular rhythm with slightly tachycardic rate GI normal to inspection, nondistended, normoactive bowel sounds, non-tender, non-distended and no masses GI Narrative: No voluntary guarding or rigidity no pulsatile mass Auscultation: normoactive bowel sounds Palpation: soft Narrative: Rectal exam shows no external hemorrhoids rectal tone is normal and stool is brown in color but Hemoccult positive Back/Spine Back/Spine Narrative: No bony deformity or step-off of the thoracic or lumbar spine no midline pain on palpation Extremity Extremity Narrative: Pelvis is stable there is no shortening or external rotation of either lower extremity. There is pain with palpation around the greater trochanter of the left hip There is also pain with palpation of the right anterior shoulder without obvious bony deformity or joint effusion or sulcus sign noted. Neuro oriented x3 and CN's II-XII intact bilaterally Sensorium / Orientation: alert Psych mental status grossly normal Skin no rashes or lesions noted Skin Narrative: Ecchymosis/hematoma to the forehead without other signs of trauma MDM MDM MDM Narrative Medical decision making narrative: Patient presented to the ER tachycardic but otherwise with stable vital. EKG showed atrial flutter and chart review reveals she has a past medical history of this. As the fall was more of a syncopal event there is concern that this could be cardiac in nature or secondary to acute blood loss anemia or electrolyte derangement. Secondary to this a basic work-up was obtained. Patient's hemoglobin is low at 8.8 and chart review reveals that the previous value from roughly 1 month ago was 13. Secondary to this drop in her hemoglobin a rectal exam was performed which showed brown stool but it is Hemoccult positive. Therefore she was given a bolus of protonix. As she is now in atrial flutter and her potassium is low at 3 she was given 40 mEq by IV route. After receiving morphine secondary to her pain her pulse ox dropped and it was not improving so therefore a CTA was ordered to ensure there was no PE associated with this as she is unsure of how long she has been in the abnormal heart rhythm. This confirmed no PE or dissection or pneumothorax. The case was discussed with cardiology on-call and they agree that patient should be monitored to ensure heart rhythm returns to her baseline and not evolves into a ventricular tachycardia. Also patient will need to have her blood volume trended to ensure that this is stabilizing as well and that she does not require emergent colonoscopy. Secondary to this the plan of care was discussed with medicine on-call and they are agreeable to admission at this time. History & Record Review Discussion w/independent historian: EMS personnel, Patient and Family Lab Data Attestation: I reviewed the patient's lab results. Labs: Laboratory Results - last 24 hr 03/16/23 03/16/23 02:45 02:45 WBC 3.7 L RBC 2.76 L Hgb 8.8 L Hct 27.6 L MCV 100.0 H MCH 31.9 MCHC 31.9 L RDW Std Deviation 51.2 H RDW Coeff of Hafsa 14.1 Plt Count 119 L MPV 10.2 Immature Gran % (Auto) 0.300 Neut % (Auto) 55.2 Lymph % (Auto) 30.0 [place] % (Auto) 8.3 Eos % (Auto) 5.9 H Baso % (Auto) 0.3 Absolute Neuts (auto) 2.1 Absolute Lymphs (auto) 1.12 Nucleated RBC % 0 Sodium 139 Potassium 3.0 L Chloride 105 Carbon Dioxide 28.0 Anion Gap 6 BUN 11 Creatinine 0.79 Estim Creat Clear Calc 29.54 Est GFR (MDRD) Af Amer 89 Est GFR (MDRD) Non-Af 73 BUN/Creatinine Ratio 13.9 Glucose 105 Calcium 8.7 Magnesium 1.8 Radiography Diagnostic Testing: Clinical Impression(s) from Imaging Studies Brain CT 03/16/23 02:13 IMPRESSION: Advanced chronic changes. 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 No acute intracranial abnormality. Forehead scalp swelling, presumed contusion. Electronically Signed: Liz Gutierrez MD at 3:58 EDT , Cervical Spine CT 03/16/23 02:13 IMPRESSION: 1. No acute posttraumatic abnormality. 2. Degenerative changes. Mild spinal stenosis due to central-left posterior disc protrusion at C3-4. Electronically Signed: Liz Gutierrez MD at 4:04 EDT , Hip/Pelvis X-Ray 03/16/23 02:13 IMPRESSION: No acute left hemipelvis or hip fracture. Electronically Signed: Liz Gutierrez MD at 4:09 EDT Reading Location ID and State: [facility] / [place] Tel , Service support , Shoulder X-Ray 03/16/23 02:13 IMPRESSION: Advanced chronic changes and presumed old healed proximal right humerus fracture. No convincing acute fractures. Electronically Signed: Liz Gutierrez MD at 4:07 EDT Reading Location ID and State: [facility] / [place] Tel , Service support , Chest CTA 03/16/23 04:39 IMPRESSION: No PE or aortic aneurysm or dissection. Borderline mediastinal lymph nodes and mild right hilar adenopathy. Similar to 2019. Mild fluid in the superior pericardial recesses. Mild pulmonary interstitial edema. Mild coronary artery calcifications. Stable chronic change of the right shoulder. Electronically Signed: Liz Gutierrez MD at 6:00 EDT Reading Location ID and State: [facility] / [place] Tel , Service support , Left hip x-ray with 1 view pelvis as interpreted by the emergency medicine physician reveals no acute fracture dislocation or joint effusion Right shoulder x-ray as interpreted by the emergency medicine physician reveals chronic changes consistent with history of previous injury but no acute fracture or dislocation Management Discussion w/another healthcare provider: Hospitalist and Director Supply Chain Discharge Plan Dx/Rx/DC Orders Clinical Impression: Syncope and collapse, Atrial flutter, Acute blood loss anemia, GI (gastrointestinal bleed) Disposition Disposition: Acute Care Hospital [facility] Discharge Date/Time: 03/16/23 07:06
--- NOTE | 2023-03-16 07:09 | ECHOD_ITS ---
Reason For Study: SOB Procedure This was a 2D Doppler, Color Flow transthoracic echocardiogram. Exam performed portable in patient room. Left Ventricle Normal LV size. The estimated ejection fraction is 60 %. Unable to assess diastolic dysfunction. No regional wall motion abnormalities noted. Right Ventricle Normal RV size. Normal systolic function. Atria The left atrium is mildly enlarged. Normal right atrium. No doppler evidence for ASD. Mitral Valve There is no mitral valve stenosis. No mitral valve insufficiency. Tricuspid Valve There is no tricuspid stenosis. Mild tricuspid valve insufficiency. Pulmonary artery systolic pressure is 45-50 mmHg. Aortic Valve Trisinus/trileaflet aortic valve. There is no aortic stenosis. No aortic valve insufficiency. Pulmonic Valve There is no pulmonic valvular stenosis. Trivial pulmonic valve insufficiency. Great Vessels Normal aortic root. Pericardium/Pleural No pericardial effusion. MMode/2D Measurements & Calculations LVIDd: 3.3 cm IVSd: 1.4 cm Ao root diam: 3.1 cm LVIDs: 2.0 cm LVPWd: 1.1 cm RVDd: 3.0 cm FS: 38.4 % LAV(MOD-bp): 56.7 ml LVAd ap4: 16.3 cm2 LVAd ap2: 22.4 cm2 LAV(MOD-bp) Indexed: 33.9 ml/m2 LVLd ap4: 6.7 cm LVLd ap2: 6.4 cm LAV(MOD-sp2): 46.8 ml EDV(MOD-sp4): 34.1 ml EDV(MOD-sp2): 67.6 ml LAV(MOD-sp4): 58.6 ml EDV(sp4-el): 33.9 ml EDV(sp2-el): 65.9 ml LVAs ap4: 9.7 cm2 LVAs ap2: 15.6 cm2 LVLs ap4: 6.2 cm LVLs ap2: 6.0 cm ESV(MOD-sp4): 13.8 ml ESV(MOD-sp2): 36.5 ml ESV(sp4-el): 12.9 ml ESV(sp2-el): 34.1 ml EF(MOD-sp4): 59.5 % EF(MOD-sp2): 46.0 % EF(sp4-el): 62.1 % SV(MOD-sp4): 20.3 ml SV(MOD-sp2): 31.1 ml SV(sp4-el): 21.1 ml LA dimension(2D): 3.5 cm LA A4 area: 21.4 cm2 RA A4 area: 16.7 cm2 Doppler Measurements & Calculations MV E max boris: 124.2 cm/sec Ao V2 max: 117.5 cm/sec LV V1 max: 101.6 cm/sec Ao max P.6 mmHg LV V1 max P.2 mmHg Ao V2 mean: 81.6 cm/sec LV V1 mean P.3 mmHg Ao mean P.1 mmHg LV V1 mean: 71.1 cm/sec Ao V2 VTI: 22.7 cm LV V1 VTI: 15.8 cm AV (velocity ratio): 0.70 PA V2 max: 73.8 cm/sec TR max boris: 326.0 cm/sec TR max P.5 mmHg ECHO/Echo Complete Interpretation Summary Unable to assess diastolic dysfunction. The left atrium is mildly enlarged. The estimated ejection fraction is 60 %. Ordering Physician: Ran Mejias Referring Physician: Estiven Gutierrez M.D. Performed By: Ambar Osullivan RDCS
--- NOTE | 2023-03-16 07:59 | PCM.HOSP.N ---
Hospitalist Note 83-year-old female history of A-fib/a flutter presented to the ED with syncope. Was found in the ED to have hemoglobin 8.8 with a baseline/previous of 13.2. PPI IV, n.p.o., GI consult pending. At time of eval this a.m. has not yet had any more bleeding.
[2023-03-16] MEDS: 0.9% Saline Lock 10 ML Syringe IV (09:21)
[2023-03-16 10:29] LABS: Hematocrit 39.6 % (37-47); Hemoglobin 13.3 g/dL (12.0-15.0)
[2023-03-16] MEDS: Metoprolol(XL)Succ 25 MG Tablet PO ×2 (11:05→21:00)
--- NOTE | 2023-03-16 12:15 | CASEMGMT ---
RN EMERY Face to Face with patient for initial transition planning/care coordination assessment. RN CM introduced self and role at [facility]. Patient lying in bed, alert and oriented, daughter at bedside. Patient willing to participate in assessment and is able to answer all questions appropriately. Care providers, pharmacy, and demographics verified. Patient wishes to discharge home, denies need for home health at this time. Patient states she has no further needs or concerns at this time. CM to follow for discharge planning needs that may arise. PCP: Matt Specialists: Luz Elena lamination assembler; Chris neurologist Preferred Pharmacy: [facility] [place] Insurance: [employer] Prescription Benefit: yes Living Will/HPOA: yes, wesguillemichelle Gregg LNOK: , daughters Living Arrangements: Patient lives with in a 2 story home with bed and bath on first floor, no steps to enter the home. Patient states she is independent at home. Transportation: children, driving service DME/HHC: Patient has shower chair, raised toilet, cane, walker, grab bars at home. Patient has generator for electricity. No previous HHC or SNF. Active with [facility]. Disposition Plan: Patient to discharge home with family support and follow-up plans in place. Carolyn VAZQUEZ, RN, CM
--- NOTE | 2023-03-16 12:35 | US_ITS ---
INDICATION: Thrombocytopenia, hepatomegaly EXAMINATION: Ultrasound Abdomen Complete TECHNIQUE: Douglas-scale and color Doppler imaging was performed of the abdomen. COMPARISON: CTA chest March 16, 2023. FINDINGS: LIVER: There is mildly coarsened echotexture. No focal hepatic lesion. No intrahepatic biliary ductal dilatation. Liver is normal in size, right lobe measures 13.2 cm. Normal flow within the main portal vein. GALLBLADDER AND BILIARY TREE: No echogenic, shadowing gallstones, pericholecystic fluid or gallbladder wall thickening is demonstrated. Small degree of layering sludge is suggested. The proximal common bile duct measures 3 mm, which is within normal limits for the patient''s age. SONOGRAPHIC REZA''S SIGN: Negative. PANCREAS: No focal abnormality is demonstrated in the pancreas. No pancreatic ductal dilatation. SPLEEN: Borderline enlarged, 13 cm, with homogeneous in echotexture. KIDNEYS: Right kidney measures 10.2 cm and left kidney 9.6 cm. There is no hydronephrosis. Right renal simple cyst superior pole 2.1 cm maximum diameter. No nephrolithiasis. No mass. VESSELS: Submitted longitudinal images of the intra-abdominal aorta demonstrate no gross abnormalities and are unremarkable. The IVC is patent. No ascites. US/Abdomen Complete IMPRESSION: No acute abdominal findings. Borderline splenomegaly. Electronically Signed: Aman Damian MD at 18:23 EDT ,
--- NOTE | 2023-03-16 15:31 | NURSING ---
Pt returned from procedure, pt assisted to bathroom and back to bed. Vitals WNL.
--- NOTE | 2023-03-16 15:50 | CHAPLAIN ---
Type of Pastoral Visit _x__ Initial Visit ___ Follow-up Visit ___ On-call Visit ___ General Patient Visit ___ Spiritual Assessment ___ Family Conference ___ Bereavement ___ Rapid Response ___ Code Blue ___ Other (describe below) Pastoral Care Referral From _x__ Patient ___ Family ___ Nurse ___ Physician ___ Barber Apprentice ___ Aerospace Mechanic ___ Other (describe below) Sacrament/Intervention _x__ Active listening ___ Anointing ___ Jewish ___ Bereavement ___ Communion ___ Dianna exploration ___ _x__ Life review _x__ Prayer ___ Reconciliation ___ Sacrament of Sick _x__ Supportive presence ___ Wedding ___ Other (describe below) Pastoral Comments patient describes her fall; daughter is with pt and also adds to description and information; pt repeats during visit that she just wants to go home and be with her of 65 years; pt speaks of large family and much available support; pt does welcome prayer for encouragement; time given to hear her review of life
[2023-03-16 16:09] LABS: Absolute Lymphocyte Count 1.22 X10^3/uL (0.83-4.51); Absolute Neutrophil Count 3.2 X10^3/uL (2.0-7.7); Basophil# 0.03 X10^3/uL; Basophil% 0.6 % (0-1); Eosinophil# 0.21 X10^3/uL; Eosinophils% 4.1 % (0-5); Hematocrit 43.3 % (37-47); Hemoglobin 14.4 g/dL (12.0-15.0); Lymphocyte # 1.22 X10^3/ul (0.83-4.51); Lymphocyte % 23.6 % (19-41); Mean Corp Hgb Conc 33.3 g/dL (32-36); Mean Corpuscular Hgb 32.5 pg (27.0-32.0); Mean Corpuscular Volume 97.7 fL (81-99); Mean Platelet Vol. 11.1 fl (6.2-12.0); Monocyte% 9.7 % (0-10); NRBC Flagged by Analyzer 0 % (0-5); Neutrophil # 3.21 X10^3/uL (2.7-7.7); Neutrophil % 61.8 % (47-70); Platelet Count 178 K/mm3 (150-450); RBC Distribution Width CV 14.3 % (11.6-14.6); RBC Distribution Width SD 51.7 fl (35.1-43.9); Red Blood Count 4.43 M/mm3 (4.2-5.4); White Blood Count 5.2 K/mm3 (4.4-11.0)
--- NOTE | 2023-03-16 17:21 | EX.PCM.CON.G ---
HPI Consult Data Date of Consult: 03/16/23 HPI Narrative Reason for Consultation: Anemia HPI Narrative: MARTHA EMERY, is a essentially 83-year-old female with past medical history of CAD as well as paroxysmal atrial flutter who is only on a baby aspirin and not true anticoagulation.? She was worked up in September 2022 secondary to this abnormal heart rhythm and syncopal event.? Patient states that this evening around 930 or 10 PM she was in her kitchen and then she remembers waking up on the floor.? There she states that there was no prodrome of palpitations chest pain or tunnel vision or lightheaded or dizzy sensation prior to the event.? She states that last time this occurred she was in an abnormal heart rhythm and has concern for it once again and therefore comes in for evaluation. I was asked to see her for the evaluation of anemia. [facility] Medical History (Updated 03/16/23 @ 07:[address] Ran Mejias MD) A-fib Acquired dysplasia of left hip Anemia Arthritis Atherosclerotic heart disease of [place] coronary artery without angina pectoris Cataracts, bilateral Chest pain Ectopic beat, ventricular Essential hypertension History of kidney stones History of pneumonia Hot flashes Humerus fracture NSTEMI (non-ST elevated myocardial infarction) PAF (paroxysmal atrial fibrillation) Seasonal allergies Vasovagal syncope Home Medications cinnamon bark 500 mg capsule (Cinnamon) 500 mg PO BID supplement 03/13/19 [History Last Taken 09/15/22] aspirin 81 mg tablet,delayed release 81 mg PO DAILY HEART HEALTH 07/11/19 [History Last Taken 09/15/22] cyanocobalamin (vitamin B-12) 1,000 mcg tablet,extended release 1,000 mcg PO DAILY vitamin 05/12/20 [History Last Taken 09/15/22] donepezil 10 mg tablet 10 mg PO QHS Memory #90 tabs 12/30/21 [Rx Last Taken 09/15/22] atorvastatin 40 mg tablet 40 mg PO QHS cholesterol 04/14/22 [History Last Taken 09/15/22] FACTOR 5 MTV 1 tab PO/SL BID SUPPLEMENT 08/27/22 [History Last Taken 09/15/22] cod liver oil 1 cap PO DAILY SUPPLEMENT 08/27/22 [History Last Taken 09/15/22] quetiapine 25 mg tablet 25 mg PO QHS 09/08/22 [History Last Taken 09/15/22] magnesium oxide 500 mg tablet 500 mg PO DAILY SUPPLEMENT 09/16/22 [History Last Taken 09/15/22] multivitamin 1 tab PO DAILY SUPPLEMENT 09/16/22 [History Last Taken 09/15/22] metoprolol succinate 25 mg tablet,extended release 24 hr 12.5 mg PO BID 30 days #30 tabs 09/17/22 [Rx Last Taken Unknown] potassium chloride 20 mEq tablet,extended release(part/cryst) 20 meq PO DAILY SUPPLEMENT #90 tabs 02/10/23 [Rx Last Taken Unknown] ARTERY CARE 4 tab BID 03/16/23 [History Last Taken Unknown] Lactobacillus acidophilus and rhamnosus 15 billion cell capsule (Probiotic) 30 cap PO 03/16/23 [History Last Taken Unknown] lisinopril 10 mg-hydrochlorothiazide 12.5 mg tablet 1 tab PO QHS 03/16/23 [History Last Taken Unknown] lorazepam 0.5 mg tablet 0.5 mg PO QHS 03/16/23 [History Last Taken Unknown] oxycodone 5 mg tablet 5 mg PO Q8H PRN Pain 03/16/23 [History Last Taken Unknown] sertraline 25 mg tablet (Zoloft) 25 mg PO DAILY 03/16/23 [History Last Taken Unknown] Allergy/AdvReac Type Severity Reaction Status Date / Time piroxicam [From Feldene] AdvReac Unknown Unknown Verified 02/14/23 13:51 adhesive AdvReac NEEDS Verified 02/14/23 13:51 FOLLOW-UP Family History Other Arthritis Cancer Surgical History History of carpal tunnel release History of section Presence of stent in coronary artery (~07/12/19) Social History Smoking Status: Never smoker alcohol intake: never substance use type: does not use what type of physical activity do you participate in: none ROS ROS Narrative Pertinent positives and pertinent negatives as noted in HPI. All other systems were reviewed and are negative Physical Exam Narrative Physical exam: General: Well-nourished, well-developed. Head: Ecchymosis at mid forehead. Normocephalic. Eyes: Vision is grossly intact. EOMI ENT, no trauma, moist mucous membranes, no rhinorrhea Neck: Nontender, No thyromegaly. CVS: Irregularly irregular rate and rhythm. S1-S2 present. No murmur, gallop or rub. Respiratory : clear to auscultation bilaterally, chest wall nontender Abdomen: Soft, nontender, nondistended, normal bowel sounds, no masses : Deferred Back: Nontender, no CVA tenderness. Extremities: No edema. Nontender. Skin: Normal color, no trauma, abrasions Neuro: Alert, cranial nerves II through XII grossly intact. Psychiatry: Normal mood. Normal affect. Not depressed. Not anxious. Lab / Micro Data Result Diagrams: 03/16/23 15:50 03/16/23 11:19 Labs: Laboratory Results - last 24 hr 03/16/23 02:45: Sodium 139, Potassium 3.0 L, Chloride 105, Carbon Dioxide 28.0, Anion Gap 6, BUN 11, Creatinine 0.79, Estim Creat Clear Calc 29.54, Est GFR (MDRD) Af Amer 89, Est GFR (MDRD) Non-Af 73, BUN/Creatinine Ratio 13.9, Glucose 105, Calcium 8.7, Magnesium 1.8 03/16/23 02:45: WBC 3.7 L, RBC 2.76 L, Hgb 8.8 L, Hct 27.6 L, MCV 100.0 H, MCH 31.9, MCHC 31.9 L, RDW Std Deviation 51.2 H, RDW Coeff of Hafsa 14.1, Plt Count 119 L, MPV 10.2, Immature Gran % (Auto) 0.300, Neut % (Auto) 55.2, Lymph % (Auto) 30.0, [place] % (Auto) 8.3, Eos % (Auto) 5.9 H, Baso % (Auto) 0.3, Absolute Neuts (auto) 2.1, Absolute Lymphs (auto) 1.12, Nucleated RBC % 0 03/16/23 08:17: Blood Type O POSITIVE, Antibody Screen NEGATIVE, Antibody Identification Not Reportable, Crossmatch See Detail 03/16/23 09:55: Hgb 13.3, Hct 39.6 03/16/23 11:19: Potassium 4.0 03/16/23 15:50: WBC 5.2, RBC 4.43, Hgb 14.4, Hct 43.3, MCV 97.7, MCH 32.5 H, MCHC 33.3, RDW Std Deviation 51.7 H, RDW Coeff of Hafsa 14.3, Plt Count 178, MPV 11.1, Immature Gran % (Auto) 0.200, Neut % (Auto) 61.8, Lymph % (Auto) 23.6, [place] % (Auto) 9.7, Eos % (Auto) 4.1, Baso % (Auto) 0.6, Absolute Neuts (auto) 3.2, Absolute Lymphs (auto) 1.22, Nucleated RBC % 0 Micro: Microbiology 03/16/23 03:35 Stool Stool Occult Blood (WALLY) - Final Occult Blood Positive Radiology Impression Brain CT 03/16/23 02:13 IMPRESSION: Advanced chronic changes. 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 No acute intracranial abnormality. Forehead scalp swelling, presumed contusion. Electronically Signed: Liz Gutierrez MD at 3:58 EDT Reading Location ID and State: [facility] / [place] Tel , Service support , Cervical Spine CT 03/16/23 02:13 IMPRESSION: 1. No acute posttraumatic abnormality. 2. Degenerative changes. Mild spinal stenosis due to central-left posterior disc protrusion at C3-4. Electronically Signed: Liz Gutierrez MD at 4:04 EDT Reading Location ID and State: [facility] / [place] Tel , Service support , Hip/Pelvis X-Ray 03/16/23 02:13 IMPRESSION: No acute left hemipelvis or hip fracture. Electronically Signed: Liz Gutierrez MD at 4:09 EDT , Shoulder X-Ray 03/16/23 02:13 IMPRESSION: Advanced chronic changes and presumed old healed proximal right humerus fracture. No convincing acute fractures. Electronically Signed: Liz Gutierrez MD at 4:07 EDT , Chest CTA 03/16/23 04:39 IMPRESSION: No PE or aortic aneurysm or dissection. Borderline mediastinal lymph nodes and mild right hilar adenopathy. Similar to 2019. Mild fluid in the superior pericardial recesses. Mild pulmonary interstitial edema. Mild coronary artery calcifications. Stable chronic change of the right shoulder. Electronically Signed: Liz Gutierrez MD at 6:00 EDT , Echocardiogram 03/16/23 07:09 Interpretation Summary Unable to assess diastolic dysfunction. The left atrium is mildly enlarged. The estimated ejection fraction is 60 %. Ordering Physician: Ran Mejias Referring Physician: Estiven Gutierrez M.D. Performed By: Ambar Osullivan RDCS Assessment & Plan Assessment/Plan (1) Syncope and collapse: (2) Acute blood loss anemia: (3) A-fib: QUALIFIERS: Atrial fibrillation type: paroxysmal Qualified Code(s): I48.0 - Paroxysmal atrial fibrillation PLAN: Plan Patient was found to be anemic with Hemoccult positive stools. Differential diagnosis does include peptic ulcer disease, angiodysplasia, neoplasia. Because her hemoglobin did increase I think it is reasonable to just do an upper endoscopy. If negative then she may need a lower colonoscopy in order to evaluate her lower GI tract as she is high risk for malignancy but with a normal hemoglobin at this time I do not want to put her through a prep if I do not have to. Charges/Coding Visit Charges Inpatient E&M: 26394 Init Hosp L3
[2023-03-16] MEDS: Acetaminophen 325 MG Tablet 650 MG PO (20:15)
[2023-03-17] VITALS (13 sets, daily range): BP systolic 106–150; BP diastolic 73–110; PULSE 72–117; RESP 16–18; TEMP 36.4–37.2; O2SAT 92–96; BMI 28.3
--- NOTE | 2023-03-17 | EGD_PTH ---
PATIENT: MARTHA EMERY LOC: [facility] U#:[id number] AGE/SX: 83/F [facility]OM[facility] RE03/16/[address]: Dr. Herminia Cardenas MD : 1940 BED: 1 DIS: 03/18/2023 SPEC #: [id number] RECD: 03/17/23 14:05 STATUS: ERIC RETyson #: [id number] KIZZY: 03/17/23 00:[address]: Rogerio Alvarado DEPT: SURGICAL PATHOLOGY RECD BY: Randy Grigsby ENTERED: 03/17/23 14:06 SP TYPE: EGD BIOPSY OTHR DR: DO Dr. Ran Carey MD Dr. Nagapradee Nagajothi, MD Dr. Paige Pierce, MD Dr. 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 AM:tarik 03/18/2023 MICROSCOPIC DESCRIPTION Slides are reviewed. GROSS DESCRIPTION Received in fixative is one container labeled with the patient's name and designated duodenum biopsy. The specimen consists of two irregular fragments of light iglesias soft tissue that in aggregate measure 0.6 x 0.3 x 0.1 cm. The specimen is totally submitted in one cassette. / SJ:tarik 03/17/2023 TC:5 CPT: 51574
[2023-03-17 06:30] LABS: Absolute Lymphocyte Count 0.93 X10^3/uL (0.83-4.51); Absolute Neutrophil Count 2.8 X10^3/uL (2.0-7.7); Basophil# 0.03 X10^3/uL; Basophil% 0.7 % (0-1); Eosinophils% 6.7 % (0-5); Hematocrit 40.1 % (37-47); Lymphocyte # 0.93 X10^3/ul (0.83-4.51); Lymphocyte % 20.8 % (19-41); Mean Corp Hgb Conc 32.4 g/dL (32-36); Mean Corpuscular Hgb 31.6 pg (27.0-32.0); Mean Corpuscular Volume 97.6 fL (81-99); Mean Platelet Vol. 10.6 fl (6.2-12.0); Monocyte# 0.39 X10^3/uL; Monocyte% 8.7 % (0-10); NRBC Flagged by Analyzer 0 % (0-5); Neutrophil # 2.81 X10^3/uL (2.7-7.7); Neutrophil % 62.7 % (47-70); Platelet Count 179 K/mm3 (150-450); RBC Distribution Width SD 50.2 fl (35.1-43.9); Red Blood Count 4.11 M/mm3 (4.2-5.4); White Blood Count 4.5 K/mm3 (4.4-11.0)
[2023-03-17 07:07] LABS: Lactic Acid 1.1 mmol/L (0.4-1.9)
[2023-03-17 07:15] LABS: Anion Gap 5 (5-15); BUN 7 mg/dL (7-18); BUN/Creat Ratio 12.3 RATIO (10-20); Calcium,Total 8.9 mg/dL (8.5-10.1); Chloride 106 mmol/L (98-107); Creatinine, Serum 0.57 mg/dL (0.55-1.02); EST Glomerular Filtration Rate 107 mL/min (>60); Est Glom Filt Rate - Afr Amer 130 mL/min (>60); Estimated Creatinine Clearance 31.04 ml/min; Glucose 99 mg/dL (74-106); Potassium 3.7 mmol/L (3.5-5.1); Sodium Level 140 mmol/L (136-145); Thyroid Stim Hormone (TSH) 1.09 uIU/mL (0.358-3.74)
--- NOTE | 2023-03-17 09:55 | PCM.PN.HOSP ---
Reason for Visit Reason for Visit: Diagnoses Acute posthemorrhagic anemia (03/16/23) Paroxysmal atrial fibrillation (03/16/23) Syncope and collapse (03/16/23) Subjective Subjective Laying in bed, reporting some abdominal pain. Did have bowel movement yesterday without blood or difficulty per family member in the room. She denies other complaints at time of evaluation. No nausea or vomiting Objective Data Objective Data Vital Signs: Vital Signs Temp Pulse Resp BP Pulse Ox O2 Del Method O2 Flow Rate 98.0 F 95 16 128/90 H 94 Nasal Cannula 2 03/17/23 05:30 03/17/23 05:30 03/17/23 05:30 03/17/23 05:30 03/17/23 08:59 03/17/23 09:16 03/17/23 09:16 Oxygen Flow Rate (L/min) 2 Oxygen Delivery Method Nasal Cannula Weight: 68 kg Body Mass Index (BMI) 28.3 Intake & Output: Intake and Output for Last 24 Hours 03/15/23 03/16/23 03/17/23 23:59 23:59 23:59 Intake Total 1857.67 / 1857.67 81.33 / 81.33 Balance 1857.67 / 1857.67 81.33 / 81.33 Lab / Micro Data Result Diagrams: 03/17/23 06:21 03/17/23 06:21 Labs: Laboratory Results - last 24 hr 03/16/23 08:17: Blood Type O POSITIVE, Antibody Screen NEGATIVE, Antibody Identification Not Reportable, Crossmatch See Detail 03/16/23 09:55: Hgb 13.3, Hct 39.6 03/16/23 11:19: Potassium 4.0 03/16/23 15:50: WBC 5.2, RBC 4.43, Hgb 14.4, Hct 43.3, MCV 97.7, MCH 32.5 H, MCHC 33.3, RDW Std Deviation 51.7 H, RDW Coeff of Hafsa 14.3, Plt Count 178, MPV 11.1, Immature Gran % (Auto) 0.200, Neut % (Auto) 61.8, Lymph % (Auto) 23.6, [place] % (Auto) 9.7, Eos % (Auto) 4.1, Baso % (Auto) 0.6, Absolute Neuts (auto) 3.2, Absolute Lymphs (auto) 1.22, Nucleated RBC % 0 03/17/23 06:21: WBC 4.5, RBC 4.11 L, Hgb 13.0, Hct 40.1, MCV 97.6, MCH 31.6, MCHC 32.4, RDW Std Deviation 50.2 H, RDW Coeff of Hafsa 14.0, Plt Count 179, MPV 10.6, Immature Gran % (Auto) 0.400, Neut % (Auto) 62.7, Lymph % (Auto) 20.8, [place] % (Auto) 8.7, Eos % (Auto) 6.7 H, Baso % (Auto) 0.7, Absolute Neuts (auto) 2.8, Absolute Lymphs (auto) 0.93, Nucleated RBC % 0 03/17/23 06:21: Sodium 140, Potassium 3.7, Chloride 106, Carbon Dioxide 29.0, Anion Gap 5, BUN 7, Creatinine 0.57, Estim Creat Clear Calc 31.04, Est GFR (MDRD) Af Amer 130, Est GFR (MDRD) Non-Af 107, BUN/Creatinine Ratio 12.3, Glucose 99, Calcium 8.9, TSH 1.09 03/17/23 06:21: Lactic Acid 1.1 Micro: Microbiology 03/16/23 03:35 Stool Stool Occult Blood (WALLY) - Final Occult Blood Positive Radiography Diagnostic Testing: Radiology Impression Echocardiogram 03/16/23 07:09 Interpretation Summary Unable to assess diastolic dysfunction. The left atrium is mildly enlarged. The estimated ejection fraction is 60 %. Ordering Physician: Ran Mejias Referring Physician: Estiven Gutierrez M.D. Performed By: Ambar Osullivan, RDBIANCA Abdomen Ultrasound 03/16/23 12:35 IMPRESSION: No acute abdominal findings. Borderline splenomegaly. Electronically Signed: Aman Damian MD at 18:23 EDT , Physical Exam Narrative General: Alert HEENT: Atraumatic, normocephalic Eyes: Anicteric, normal conjunctiva, extraocular movements grossly intact Neck: Supple Respiratory: Clear to auscultation bilaterally, normal respiratory effort Cardiovascular: Regular rate and rhythm GI: Soft, nondistended, mildly tender without rebound, guarding, rigidity Extremities: No edema Musculoskeletal: Moving all extremities Neuro: No overt focal neurological deficits Skin: No rashes appreciated Psych: Cooperative Assessment & Plan Assessment/Plan (1) Syncope and collapse: (2) Acute blood loss anemia: (3) A-fib: QUALIFIERS: Atrial fibrillation type: paroxysmal Qualified Code(s): I48.0 - Paroxysmal atrial fibrillation PLAN: Plan #Loss of conciousness -Reportedly found on the bathroom floor prior to admission and she did not know why she was on the floor. -She was subsequently brought to the hospital -In the ED was a flutter with rate of 105 -X-rays with old healed proximal right humerus fracture but no acute abnormalities -Had event monitors in September 2022 in February 2023 with ectopy but no A-fib noted -Syncopal episode thought in part to be due to GI bleed as hemoglobin on presentation was 8.8 and FOBT positive but it did improve independently of receiving any blood -Orthostats negative in ED -Home med list does list oxycodone, lorazepam as well as quetiapine which may have played a component in this especially as it appears that she got a 10-day supply of oxycodone for the first time 03/07/2023 followed by an additional 20 days 03/11/2023 for 5 mg 3 times daily in addition to her 0.5 mg twice daily of Ativan which she feels regularly -Echo with EF of 60% and left atrium mildly enlarged, unable to assess diastolic dysfunction. No aortic stenosis or valve insufficiency. PASP 45 to 50 mmHg #A-fib RVR/a flutter -Not presently a candidate for anticoagulation -On telemetry -Rate control with increased home metoprolol -Cardiology consulted on admission #Acute blood loss -Hemoglobin on presentation was 8.8. Her hemoglobin months before presentation was 13.2. -Positive occult blood in the emergency department. IV PPI -GI consult -Repeat hemoglobin did improve independent of any blood administration however did have a syncopal episode with blood in stool, will undergo EGD -Was having some abdominal pain earlier, if this persists will get CT of abdomen #Hx CAD -s/p senting in 2019 #Hypoxia -Found to have oxygen saturation of 88% on room air at the emergency department. CTA chest showed some interstitial edema and mild fluid in the superior pericardial recesses. -Last echocardiogram was on 02/24/2022. Echocardiogram showed ejection fraction of 60%. Right ventricular systolic pressure was 41 mmHg. No hemodynamically significant valvular abnormality. Continue oxygen supplementation started at the emergency department. Titrate oxygen as needed. -repeat Echo with EF of 60% and left atrium mildly enlarged, unable to assess diastolic dysfunction. No aortic stenosis or valve insufficiency. PASP 45 to 50 mmHg -We will check COVID and influenza given hypoxia with unclear origin and elevated D-dimer Hypokalemia Replace as indicated DVT prophylaxis Not a candidate of chemical thromboprophylaxis secondary to GI bleed. SCDs ordered. Charges/Coding Visit Charges Inpatient E&M: 80676 Subs Hosp L2
[2023-03-17] MEDS: Lactated Ringers 1,000 ML 15 ML IV (10:36)
--- NOTE | 2023-03-17 12:10 | OP.EGD_ITS ---
Patient Name: Lissa Carter Procedure Date: 03/17/2023 11:50 AM Date of : 1940 Age: 83 Procedure: Upper GI endoscopy Indications: Iron deficiency anemia, Heme positive stool Providers: Rogerio Alvarado DO Medicines: Monitored Anesthesia Care Patient Profile: This is an 83 year old female. Refer to note in patient chart for documentation of history and physical. Patient has symptoms of chronic epigastric abdominal pain, chronic dyspepsia and chronic nausea. Complications: No immediate complications. Procedure: Pre-Anesthesia Assessment: - Prior to the procedure, a History and Physical was performed, and patient medications and allergies were reviewed. The risks and benefits of the procedure and the sedation options and risks were discussed with the patient. All questions were answered and informed consent was obtained. Patient identification and proposed procedure were verified by the physician in the pre-procedure area. Mental Status Examination: alert and oriented. Airway Examination: normal oropharyngeal airway and neck mobility. Respiratory Examination: clear to auscultation. CV Examination: normal. Prophylactic Antibiotics: The patient does not require prophylactic antibiotics. Prior Anticoagulants: The patient has taken no previous anticoagulant or antiplatelet agents. ASA Grade Assessment: II - A patient with mild systemic disease. After reviewing the risks and benefits, the patient was deemed in satisfactory condition to undergo the procedure. The anesthesia plan was to use monitored anesthesia care (MAC). Immediately prior to administration of medications, the patient was re-assessed for adequacy to receive sedatives. The heart rate, respiratory rate, oxygen saturations, blood pressure, adequacy of pulmonary ventilation, and response to care were monitored throughout the procedure. The physical status of the patient was re-assessed after the procedure. After obtaining informed consent, the endoscope was passed under direct vision. Throughout the procedure, the patient's blood pressure, pulse, and oxygen saturations were monitored continuously. The Endoscope was introduced through the mouth, and advanced to the second part of duodenum. The upper GI endoscopy was accomplished without difficulty. The patient tolerated the procedure well. Scope In: 11:59:45 AM Scope Out: 12:04:11 PM Total Procedure Duration Time 0 hours 4 minutes 26 seconds Findings: The examined esophagus was normal. A single 5 mm bleeding angiodysplastic lesion was found on the greater curvature of the stomach. Coagulation for hemostasis using monopolar probe was successful. Estimated blood loss was minimal. Patchy mildly erythematous mucosa without active bleeding and with no stigmata of bleeding was found in the duodenal bulb. Biopsies were taken with a cold forceps for histology. Verification of patient identification for the specimen was done. Estimated blood loss was minimal. Impression: - Normal esophagus. - A single bleeding angiodysplastic lesion in the stomach. Treated with a monopolar probe. - Erythematous duodenopathy. Biopsied. Recommendation: - Discharge patient to home. - Advance diet as tolerated. - Continue present medications. - Await pathology results. Procedure Code(s): --- Professional --- 81318, 59, Esophagogastroduodenoscopy, flexible, transoral; with control of bleeding, any method 29711, 51, Esophagogastroduodenoscopy, flexible, transoral; with biopsy, single or multiple CPT copyright 2017 [employer]. All rights reserved. The codes documented in this report are preliminary and upon certified procedural coder review may be revised to meet current compliance requirements. Rogerio Alvarado DO 03/17/2023 12:10:09 PM This report has been signed electronically. Number of Addenda: 0 Note Initiated On: 03/17/2023 11:50 AM
--- NOTE | 2023-03-17 12:10 | OP.CCLET_ITS ---
03/17/2023 John Gutierrez Re : Upper GI endoscopy procedure for Lissa Carter Dear Dr. Gutierrez This procedure was performed on March. My impressions and recommendations are as follows: Impressions : - Normal esophagus. - A single bleeding angiodysplastic lesion in the stomach. Treated with a monopolar probe. - Erythematous duodenopathy. Biopsied. Recommendations : - Discharge patient to home. - Advance diet as tolerated. - Continue present medications. - Await pathology results. My findings are described in the full procedure note, which is enclosed. If I can be of further assistance, please feel free to contact me at . Sincerely, Rogerio Alvarado, 03/17/2023 12:10:09 PM This report has been signed electronically.
--- NOTE | 2023-03-17 13:13 | NURSING ---
Pt returned to floor at this time. Pt care resumed.
[2023-03-17] MEDS: Metoprolol(XL)Succ 25 MG Tablet PO ×2 (13:51→21:41)
--- NOTE | 2023-03-17 16:09 | PCM.CONS.C ---
Assessment & Plan Assessment/Plan (1) Vasovagal syncope: PLAN: Likely vasovagal. 2D echo and telemetry has been unremarkable. It is reasonable to do a 30-day event monitor. Follow-up with cardiology as an outpatient. Reasonable to hold the lisinopril/hydrochlorothiazide and continue the metoprolol. Patient had a fall and hit her head this time with her syncope. She does not have any warning symptoms. Eliquis was discussed with the patient and it was decided not to keep her on that because of her falls and syncope. I think it is better to hold off on the Eliquis for now as well. HPI Consult Data Date of Consult: 03/17/23 HPI Narrative Reason for Consultation: Syncope HPI Narrative: MARTHA EMERY, is a 83 F who presents after syncopal episode. She has history of vasovagal syncope, CAD status post PCI to the LAD with drug-eluting stent in 2018, atrial fibrillation. She had a recent 48-hour Holter which did not show significant events. Her hospital stay has been uneventful from a syncope and arrhythmia standpoint. Review of systems: All systems reviewed. All else is negative except that in HPI [facility] Medical History (Updated 03/16/23 @ 07:[address] Ran Mejias MD) A-fib Acquired dysplasia of left hip Anemia Arthritis Atherosclerotic heart disease of [place] coronary artery without angina pectoris Cataracts, bilateral Chest pain Ectopic beat, ventricular Essential hypertension History of kidney stones History of pneumonia Hot flashes Humerus fracture NSTEMI (non-ST elevated myocardial infarction) PAF (paroxysmal atrial fibrillation) Seasonal allergies Vasovagal syncope Home Medications cinnamon bark 500 mg capsule (Cinnamon) 500 mg PO BID supplement 03/13/19 [History Last Taken 09/15/22] aspirin 81 mg tablet,delayed release 81 mg PO DAILY HEART HEALTH 07/11/19 [History Last Taken 09/15/22] cyanocobalamin (vitamin B-12) 1,000 mcg tablet,extended release 1,000 mcg PO DAILY vitamin 05/12/20 [History Last Taken 09/15/22] donepezil 10 mg tablet 10 mg PO QHS Memory #90 tabs 12/30/21 [Rx Last Taken 09/15/22] atorvastatin 40 mg tablet 40 mg PO QHS cholesterol 04/14/22 [History Last Taken 09/15/22] FACTOR 5 MTV 1 tab PO/SL BID SUPPLEMENT 10/21/22 [History Last Taken 09/15/22] cod liver oil 1 cap PO DAILY SUPPLEMENT 08/27/22 [History Last Taken 09/15/22] quetiapine 25 mg tablet 25 mg PO QHS 09/08/22 [History Last Taken 09/15/22] magnesium oxide 500 mg tablet 500 mg PO DAILY SUPPLEMENT 09/16/22 [History Last Taken 09/15/22] multivitamin 1 tab PO DAILY SUPPLEMENT 09/16/22 [History Last Taken 09/15/22] metoprolol succinate 25 mg tablet,extended release 24 hr 12.5 mg PO BID 30 days #30 tabs 09/17/22 [Rx Last Taken Unknown] potassium chloride 20 mEq tablet,extended release(part/cryst) 20 meq PO DAILY SUPPLEMENT #90 tabs 02/10/23 [Rx Last Taken Unknown] ARTERY CARE 4 tab BID 03/16/23 [History Last Taken Unknown] Lactobacillus acidophilus and rhamnosus 15 billion cell capsule (Probiotic) 30 cap PO 03/16/23 [History Last Taken Unknown] lisinopril 10 mg-hydrochlorothiazide 12.5 mg tablet 1 tab PO QHS 03/16/23 [History Last Taken Unknown] lorazepam 0.5 mg tablet 0.5 mg PO QHS 03/16/23 [History Last Taken Unknown] oxycodone 5 mg tablet 5 mg PO Q8H PRN Pain 03/16/23 [History Last Taken Unknown] sertraline 25 mg tablet (Zoloft) 25 mg PO DAILY 03/16/23 [History Last Taken Unknown] Allergy/AdvReac Type Severity Reaction Status Date / Time piroxicam [From Feldene] AdvReac Unknown Unknown Verified 02/14/23 13:51 adhesive AdvReac NEEDS Verified 02/14/23 13:51 FOLLOW-UP Family History Other Arthritis Cancer Surgical History History of carpal tunnel release History of section Presence of stent in coronary artery (~07/12/19) Social History Smoking Status: Never smoker alcohol intake: never substance use type: does not use what type of physical activity do you participate in: none Physical Exam Const alert and oriented x3 HEENT normocephalic Eyes no scleral icterus Resp normal respiratory effort Cardio Cardio Narrative: Irregular rhythm Skin no rashes or lesions noted Psych mental status grossly normal Risk Stratification Risk Stratification Applicable: No Charges/Coding Visit Charges Inpatient E&M: 17737 Init Hosp L2 Objective Data Vital Signs: Vital Signs Temp Pulse Resp BP Pulse Ox O2 Del Method O2 Flow Rate 97.9 F 72 18 134/100 H 92 Nasal Cannula 3 03/17/23 16:00 03/17/23 16:00 03/17/23 16:00 03/17/23 16:00 03/17/23 16:00 03/17/23 16:00 03/17/23 16:00 Oxygen Flow Rate (L/min) 3 Oxygen Delivery Method Nasal Cannula Weight: 149 lb 14.629 oz Body Mass Index (BMI) 28.3 Intake & Output: Intake and Output for Last 24 Hours 03/15/23 03/16/23 03/17/23 23:59 23:59 23:59 Intake Total 1857.67 / 1857.67 244.33 / 244.33 Balance 1857.67 / 1857.67 244.33 / 244.33 Lab / Micro Data Result Diagrams: 03/17/23 06:21 03/17/23 06:21 Labs: Laboratory Results - last 24 hr 03/16/23 08:17: Blood Type O POSITIVE, Antibody Screen NEGATIVE, Crossmatch See Detail 03/16/23 15:50: WBC 5.2, RBC 4.43, Hgb 14.4, Hct 43.3, MCV 97.7, MCH 32.5 H, MCHC 33.3, RDW Std Deviation 51.7 H, RDW Coeff of Hafsa 14.3, Plt Count 178, MPV 11.1, Immature Gran % (Auto) 0.200, Neut % (Auto) 61.8, Lymph % (Auto) 23.6, Wells % (Auto) 9.7, Eos % (Auto) 4.1, Baso % (Auto) 0.6, Absolute Neuts (auto) 3.2, Absolute Lymphs (auto) 1.22, Nucleated RBC % 0 03/17/23 06:21: WBC 4.5, RBC 4.11 L, Hgb 13.0, Hct 40.1, MCV 97.6, MCH 31.6, MCHC 32.4, RDW Std Deviation 50.2 H, RDW Coeff of Hafsa 14.0, Plt Count 179, MPV 10.6, Immature Gran % (Auto) 0.400, Neut % (Auto) 62.7, Lymph % (Auto) 20.8, Wells % (Auto) 8.7, Eos % (Auto) 6.7 H, Baso % (Auto) 0.7, Absolute Neuts (auto) 2.8, Absolute Lymphs (auto) 0.93, Nucleated RBC % 0 03/17/23 06:21: Sodium 140, Potassium 3.7, Chloride 106, Carbon Dioxide 29.0, Anion Gap 5, BUN 7, Creatinine 0.57, Estim Creat Clear Calc 31.04, Est GFR (MDRD) Af Amer 130, Est GFR (MDRD) Non-Af 107, BUN/Creatinine Ratio 12.3, Glucose 99, Calcium 8.9, TSH 1.09 03/17/23 06:21: Lactic Acid 1.1 Micro: Microbiology 03/17/23 13:25 Nasal Secretion SARS-CoV-2 & FLU Antigen (Rapid) - Final Cardiology Labs/Tests 03/16/23 15:50: WBC 5.2, RBC 4.43, Hgb 14.4, Hct 43.3, MCV 97.7, MCH 32.5 H, MCHC 33.3, Plt Count 178, MPV 11.1, Immature Gran % (Auto) 0.200, Neut % (Auto) 61.8, Lymph % (Auto) 23.6, Wells % (Auto) 9.7, Eos % (Auto) 4.1, Baso % (Auto) 0.6, Absolute Neuts (auto) 3.2, Nucleated RBC % 0 03/17/23 06:21: WBC 4.5, RBC 4.11 L, Hgb 13.0, Hct 40.1, MCV 97.6, MCH 31.6, MCHC 32.4, Plt Count 179, MPV 10.6, Immature Gran % (Auto) 0.400, Neut % (Auto) 62.7, Lymph % (Auto) 20.8, Wells % (Auto) 8.7, Eos % (Auto) 6.7 H, Baso % (Auto) 0.7, Absolute Neuts (auto) 2.8, Nucleated RBC % 0 03/17/23 06:21: Sodium 140, Potassium 3.7, Chloride 106, Carbon Dioxide 29.0, Anion Gap 5, BUN 7, Creatinine 0.57, Est GFR (MDRD) Af Amer 130, Est GFR (MDRD) Non-Af 107, BUN/Creatinine Ratio 12.3, Glucose 99, Calcium 8.9 03/17/23 06:21: Lactic Acid 1.1 Rhythm: EKG: ECHO: Stress Test: Cardiac Cath: PCI: CT Surgery: Holter monitor: EPS: PPM: CXR: Chest CT Scan: Radiography Diagnostic Testing: Radiology Impression Abdomen Ultrasound 03/16/23 12:35 IMPRESSION: No acute abdominal findings. Borderline splenomegaly. Electronically Signed: Aman Damian MD at 18:23 EDT ,
[2023-03-18 06:47] LABS: Absolute Lymphocyte Count 1.06 X10^3/uL (0.83-4.51); Absolute Neutrophil Count 4.1 X10^3/uL (2.0-7.7); Basophil# 0.02 X10^3/uL; Basophil% 0.3 % (0-1); Eosinophil# 0.13 X10^3/uL; Eosinophils% 2.2 % (0-5); Hematocrit 40.2 % (37-47); Lymphocyte # 1.06 X10^3/ul (0.83-4.51); Lymphocyte % 18.1 % (19-41); Mean Corp Hgb Conc 32.3 g/dL (32-36); Mean Platelet Vol. 10.8 fl (6.2-12.0); Monocyte# 0.55 X10^3/uL; Monocyte% 9.4 % (0-10); NRBC Flagged by Analyzer 0 % (0-5); Neutrophil # 4.08 X10^3/uL (2.7-7.7); Neutrophil % 69.7 % (47-70); Platelet Count 183 K/mm3 (150-450); RBC Distribution Width CV 13.7 % (11.6-14.6); RBC Distribution Width SD 50.3 fl (35.1-43.9); Red Blood Count 4.06 M/mm3 (4.2-5.4); White Blood Count 5.9 K/mm3 (4.4-11.0)
[2023-03-18 07:19] LABS: Anion Gap 6 (5-15); BUN 7 mg/dL (7-18); BUN/Creat Ratio 9.2 RATIO (10-20); Calcium,Total 8.9 mg/dL (8.5-10.1); Chloride 103 mmol/L (98-107); Creatinine, Serum 0.76 mg/dL (0.55-1.02); EST Glomerular Filtration Rate 77 mL/min (>60); Est Glom Filt Rate - Afr Amer 93 mL/min (>60); Estimated Creatinine Clearance 31.04 ml/min; Glucose 128 mg/dL (74-106); Potassium 3.9 mmol/L (3.5-5.1); Sodium Level 138 mmol/L (136-145)
[2023-03-18 09:20] VITALS: BP 140/94; PULSE 75; RESP 18; TEMP 36.4; O2SAT 94
[2023-03-18 09:25] VITALS: O2SAT 92
[2023-03-18] MEDS: 0.9% Saline Lock 10 ML Syringe IV (09:25)
[2023-03-18 09:26] VITALS: BP 140/94; PULSE 75
[2023-03-18] MEDS: Metoprolol(XL)Succ 25 MG Tablet PO (09:26)
--- NOTE | 2023-03-18 11:59 | CT_ITS ---
STUDY: CT BRAIN WITHOUT CONTRAST REASON FOR EXAM: Female, 83 years old. Bruising around eyes, r/o bleed RADIATION DOSAGE (If Supplied By Facility): CTDIvol = ( 44.99 ) mGy, DLP = ( 745.49 ) mGycm TECHNIQUE: Transaxial CT imaging of the brain was performed without administration of intravenous contrast material. Individualized dose optimization techniques were used for this CT. COMPARISON: Comparison is made with prior study of March 16, 2023. FINDINGS: Small scalp hematoma overlying the mid frontal bone. Normal calvarium. There is mild cerebral atrophy with widening of the extra-axial spaces and ventricular dilatation. There are areas of decreased attenuation within the white matter tracts of the supratentorial brain, consistent with microvascular disease changes. Stable encephalomalacia in the right posterior temporoparietal occipital lobes. Normal basal ganglia and thalami. Normal brainstem. Normal cerebellum. There is no intracranial hemorrhage. There are no findings of an acute ischemic infarction. Normal visualized paranasal sinuses. Nasal septal deviation towards left side of the midline. CT/Brain/Head without Contrast IMPRESSION: Chronic involutional changes of the brain. Small scalp hematoma overlying the mid frontal bone. Electronically Signed: Sánchez Wilkins MD at 13:39 EDT ,
--- NOTE | 2023-03-18 14:00 | PCM.DC ---
Discharge Instructions Diet Discharge Diet: - (DASH diet) Activity Discharge Activity: - (Return normal activity as tolerated) Follow Up Care Test Results: Test results from this visit will be discussed in further detail at your follow-up appointment, if applicable. Discharge Plan Admission Admit Date/Time: 03/16/23 05:29 Primary Reason for Your Visit: Syncope Attending Provider: Herminia Cardenas Primary Care Provider: John Gutierrez Consulting Providers: Ran Mejias ; Steven Sparks ; Rogerio Alvarado Instructions Patient Instructions: ED Fall Prevention Additional Instructions / Restrictions: DISCHARGE INSTRUCTIONS PLEASE READ *Please take this with you to your next doctors appointment* -Please follow-up with cardiology upon discharge. Please call their office to schedule hospital follow-up appointment upon discharge, Dr. Sparks based on the hospital does not see patients in the office but you will be able to be seen by another member in the office -You will need to follow-up with Dr. Alvarado with GI in his office upon discharge. Please call his office to schedule your hospital follow-up appointment (ph. [phone]) -You have an irregular heart rhythm however because of falls and the episode of passing out you discussed blood thinners with the regional transportation manager and decided against taking a full dose blood thinner but you will continue your aspirin. This can be further discussed with your outpatient provider or cardiology upon follow-up -You will be discharged with instructions for a 30-day event monitor to monitor your heart rate and rhythm -You will be discharged with Dexilant this time due to some irritation in your duodenum seen during your EGD (upper scope preformed in the hospital) -You are taking multiple supplements, recommend to continue keeping these on your medication list and updating as applicable and informing your providers as supplements at times can interact with other medications. Recommend holding these until discussing with your primary care provider as supplements can sometimes increase risk of bleeding -Your blood pressure medications have been adjusted and your lisinopril?hydrochlorothiazide has been stopped and your metoprolol succinate has been increased to 25 twice a day -You are on Ativan on an outpatient basis as well as recently prescribed pain medication, either medicine alone and especially this combination can increase risk of falls and confusion so recommend discussing this with your primary care physician and optimally being on only 1 at a time to like this -Please call your primary care provider's office upon discharge to schedule a hospital follow up within 1 week. -For any concerning signs or symptoms please call 911 or proceed to the nearest emergency department Discharge Orders/Prescriptions Prescriptions: New dexlansoprazole [Dexilant] 30 mg capsule,biphase delayed releas 30 mg PO DAILY Qty: 30 0RF Continued cyanocobalamin (vitamin B-12) 1,000 mcg tablet extended release 1,000 mcg PO DAILY donepezil 10 mg tablet 10 mg PO QHS Qty: 90 2RF atorvastatin 40 mg tablet 40 mg PO QHS quetiapine 25 mg tablet 25 mg PO QHS aspirin 81 MG tablet,delayed release (DR/EC) 81 mg PO DAILY multivitamin Tablet 1 tab PO DAILY magnesium oxide 500 mg Tablet 500 mg PO DAILY lorazepam 0.5 mg Tablet 0.5 mg PO QHS sertraline [Zoloft] 25 mg Tablet 25 mg PO DAILY Probiotic 15 billion cell Capsule 30 cap PO potassium chloride 20 mEq tablet,ER particles/crystals 20 meq PO DAILY Qty: 90 3RF Changed metoprolol succinate 25 mg Tablet Extended Release 24 Hr 25 mg PO BID 30 Days Qty: 60 0RF Held cinnamon bark [Cinnamon] 500 mg capsule 500 mg PO BID Hold Instructions: Resume on 03/19/23. Recommend holding suppliments until dicussing with your primary care provider as suppliments can sometimes increse risk of bleeding cod liver oil Capsule 1 cap PO DAILY Hold Instructions: Resume on 03/19/23. Recommend holding suppliments until dicussing with your primary care provider as suppliments can sometimes increse risk of bleeding FACTOR 5 MTV 1 tab PO/SL BID Hold Instructions: Resume on 03/19/23. Recommend holding suppliments until dicussing with your primary care provider as suppliments can sometimes increse risk of bleeding ARTERY CARE 4 tab BID Hold Instructions: Resume on 03/19/23. Recommend holding suppliments until dicussing with your primary care provider as suppliments can sometimes increse risk of bleeding Discontinued oxycodone 5 mg Tablet 5 mg PO Q8H PRN (Reason: Pain) lisinopril-hydrochlorothiazide 10-12.5 mg tablet 1 tab PO QHS Other Ambulatory Orders: 30 Day Event Recorder Preventi (Urgent) Timeframe: 1 Day Facility: [facility] - Location: Cardiovascular Services Ordered By: Dr. Herminia Cardenas Referrals / Follow Up: John Gutierrez DO [Primary Care Provider] - Within 1 Week Steven Sparks MD [Med Staff - Active Staff] - See Referral Note (Please follow-up with cardiology upon discharge. Please call their office to schedule hospital follow-up appointment upon discharge, Dr. Sparks based on the hospital does not see patients in the office but you will be able to be seen by another member in the office) Rogerio Alvarado DO [Med Staff - Active Staff] - See Referral Note (You will need to follow-up with Dr. Alvarado with GI in his office upon discharge. Please call his office to schedule your hospital follow-up appointment (ph. [phone])) Disposition Disposition (needs filled in before D/C Order can be placed): Home, Self Care
--- NOTE | 2023-03-18 14:02 | PCM.DC.SUM ---
Providers Date of Admission: 03/16/23 Date of Discharge: 03/19/23 Primary Care Physician: Dr. John Gutierrez, DO Consultations 03/16/23 07:03 Consult: Cardiology Routine Consulting Provider: Steven Sparks Reason for Consult: SYNCOPE EMERGENT Consult: No Notified: Yes Date Notified: 03/16/23 Time Notified: 08:04 Method of Notification: Text Method of Consult:: In-Person Consult: Gastroenterology Routine Consulting Provider: Rogerio Alvarado Reason for Consult: ABLA EMERGENT Consult: No Notified: Yes Date Notified: 03/16/23 Time Notified: 08:02 Method of Notification: Text Reason For Visit: SYNCOPE Diagnosis Discharge Diagnosis (1) Vasovagal syncope: Status: Chronic Code(s): R55 - Syncope and collapse Plan #Loss of consciousness/syncope #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 #erythematous duodenopathy #A-fib RVR/a flutter #Hx CAD #Hypoxia Medications at Discharge Home Medications cinnamon bark 500 mg capsule (Cinnamon) 500 mg PO BID supplement 03/13/19 aspirin 81 mg tablet,delayed release 81 mg PO DAILY HEART HEALTH 07/11/19 cyanocobalamin (vitamin B-12) 1,000 mcg tablet,extended release 1,000 mcg PO DAILY vitamin 05/12/20 donepezil 10 mg tablet 10 mg PO QHS Memory #90 tabs 12/30/21 atorvastatin 40 mg tablet 40 mg PO QHS cholesterol 04/14/22 FACTOR 5 MTV 1 tab PO/SL BID SUPPLEMENT 08/27/22 cod liver oil 1 cap PO DAILY SUPPLEMENT 08/27/22 quetiapine 25 mg tablet 25 mg PO QHS mental health 09/08/22 magnesium oxide 500 mg tablet 500 mg PO DAILY SUPPLEMENT 09/16/22 multivitamin 1 tab PO DAILY SUPPLEMENT 09/16/22 potassium chloride 20 mEq tablet,extended release(part/cryst) 20 meq PO DAILY SUPPLEMENT #90 tabs 02/10/23 ARTERY CARE 4 tab BID supplement 03/16/23 Lactobacillus acidophilus and rhamnosus 15 billion cell capsule (Probiotic) 30 cap PO supplement 03/16/23 lorazepam 0.5 mg tablet 0.5 mg PO QHS anxiety 03/16/23 sertraline 25 mg tablet (Zoloft) 25 mg PO DAILY mental health 03/16/23 metoprolol succinate 25 mg tablet,extended release 24 hr 50 mg PO BID 30 days #120 tabs 03/18/23 pantoprazole 40 mg tablet,delayed release (Protonix) 40 mg PO DAILY #30 tabs 03/18/23 Hospital Course Summary of Care Provided Minutes Spent on Discharge: 35 Hospital Course: 83-year-old female history of A-fib/hypertension/vasovagal syncope presented to [facility] after being found on her bedroom floor. She had a bruise on her forehead and her glasses and placed and did not know why she fell on the floor. Brought to the hospital and was noted to have a hemoglobin of 8.8 with a baseline of 13.2 and FOBT positive. Hospitalist contacted for admission and GI consulted. In regards to her syncope she had Holter monitors on 2 separate occasions 1 in September 2022 ending in 2022 with some ectopy. On admission she did have A-fib with RVR which was managed with increasing metoprolol and cardiology evaluated and titrated this further and wanted event monitor on discharge. Echo obtained with EF 60% with left atrium mildly enlarged PASP 45-50 and unable to assess diastolic dysfunction. Orthostats negative in ED. Had no further episodes. Had fast runs on telemetry but nothing sustained and prior to d/c discussed w/ pt and cardiology and increased BB further w/ holter on d/c. Cardiology discussed AC w/ her and it was decided against. In regards to her CBC her hemoglobin before presentation was 13.2 and on presentation was 8.8 however repeat without any blood was back up to 13. She was on IV PPI and given the positive occult blood with the syncope GI was consulted and underwent EGD. EGD with a single bleeding angiodysplastic lesion in the stomach and erythematous duodenopathy. Hemoglobin remained stable. Additionally she did have O2 of 88% on room air in ED. CT of the chest showed some interstitial edema and mild fluid in superior pericardial recess. Pittore panel and COVID-negative. Did require some O2 on discharge but overall improved. Will need to follow-up closely with outpatient PCP. On day of discharge patient had no complaints, did have some increase in the bruising on either side of the bridge of her nose which she reports is when her face hit the ground with her glasses on, CT head obtained to verify no bleed and only showed chronic changes. Discharge instructions as follows: DISCHARGE INSTRUCTIONS PLEASE READ *Please take this with you to your next doctors appointment* -Please follow-up with cardiology upon discharge.? Please call their office to schedule hospital follow-up appointment upon discharge, Dr. Sparks based on the hospital does not see patients in the office but you will be able to be seen by another member in the office -You will need to follow-up with Dr. Alvarado with GI in his office upon discharge.? Please call his office to schedule your hospital follow-up appointment (ph. [phone]) -You have an irregular heart rhythm however because of falls and the episode of passing out you discussed blood thinners with the orthopaedic physician assistant and decided against taking a full dose blood thinner but you will continue your aspirin.? This can be further discussed with your outpatient provider or cardiology upon follow-up -You will be discharged with instructions for a 30-day event monitor to monitor your heart rate and rhythm -You will be discharged with protonix this time due to some irritation in your duodenum seen during your EGD (upper scope preformed in the hospital) -You are taking multiple supplements, recommend to continue keeping these on your medication list and updating as applicable and informing your providers as supplements at times can interact with other medications. Recommend holding these until discussing with your primary care provider as supplements can sometimes increase risk of bleeding -Your blood pressure medications have been adjusted and your lisinopril?hydrochlorothiazide has been stopped and your metoprolol succinate has been increased to 50 twice a day -You are on Ativan on an outpatient basis as well as recently prescribed pain medication, either medicine alone and especially this combination can increase risk of falls and confusion so recommend discussing this with your primary care physician and optimally being on only 1 at a time to like this -Please call your primary care provider's office upon discharge to schedule a hospital follow up within 1 week. -For any concerning signs or symptoms please call 911 or proceed to the nearest emergency department Physical Exam Narrative General: Alert HEENT: Bruising on scalp and on either side of the bridge of her nose, normocephalic Eyes: Anicteric, normal conjunctiva Neck: Supple Respiratory: Clear to auscultation bilaterally, normal respiratory effort Cardiovascular: Regular rate and rhythm GI: Soft, nondistended, nontender Extremities: No edema Musculoskeletal: Moving all extremities Neuro: No overt focal neurological deficits, facial movement symmetrical, finger-nose without significant difficulty bilaterally, strength equal in upper and lower extremities Skin: No rashes appreciated Psych: Cooperative Weight / BMI Weight Weight: 68 kg Body Mass Index (BMI) 28.3 ABG / Lab / Microbiology Data Result Diagrams: 03/18/23 06:35 03/18/23 06:35 Laboratory: Laboratory Results - last 24 hr 03/18/23 06:35: WBC 5.9, RBC 4.06 L, Hgb 13.0, Hct 40.2, MCV 99.0, MCH 32.0, MCHC 32.3, RDW Std Deviation 50.3 H, RDW Coeff of Hafsa 13.7, Plt Count 183, MPV 10.8, Immature Gran % (Auto) 0.300, Neut % (Auto) 69.7, Lymph % (Auto) 18.1 L, [place] % (Auto) 9.4, Eos % (Auto) 2.2, Baso % (Auto) 0.3, Absolute Neuts (auto) 4.1, Absolute Lymphs (auto) 1.06, Nucleated RBC % 0 03/18/23 06:35: Sodium 138, Potassium 3.9, Chloride 103, Carbon Dioxide 29.0, Anion Gap 6, BUN 7, Creatinine 0.76, Estim Creat Clear Calc 31.04, Est GFR (MDRD) Af Amer 93, Est GFR (MDRD) Non-Af 77, BUN/Creatinine Ratio 9.2 L, Glucose 128 H, Calcium 8.9 Microbiology: Microbiology 03/17/23 13:40 Mucosa - Nasopharyngeal Respiratory Panel (PCR) - Final 03/17/23 13:25 Nasal Secretion SARS-CoV-2 & FLU Antigen (Rapid) - Final 03/16/23 03:35 Stool Stool Occult Blood (WALLY) - Final Occult Blood Positive Radiography Diagnostic Testing: Radiology Impression Brain CT 03/18/23 11:59 IMPRESSION: Chronic involutional changes of the brain. Small scalp hematoma overlying the mid frontal bone. Electronically Signed: Sánchez Wilkins MD at 13:39 EDT , D/C Instructions Discharge Diet: - (DASH diet) Meaningful Use Info Meaningful Use Diagnoses (Choose all that apply): None applicable Discharge Plan Admission Admit Date/Time: 03/16/23 05:29 Primary Reason for Your Visit: Syncope Attending Provider: Herminia Cardenas Primary Care Provider: John Gutierrez Consulting Providers: Ran Mejias ; Steven Sparks ; Rogerio Alvarado Instructions Patient Instructions: ED Fall Prevention Additional Instructions / Restrictions: DISCHARGE INSTRUCTIONS PLEASE READ *Please take this with you to your next doctors appointment* -Please follow-up with cardiology upon discharge. Please call their office to schedule hospital follow-up appointment upon discharge, Dr. Sparks based on the hospital does not see patients in the office but you will be able to be seen by another member in the office -You will need to follow-up with Dr. Alvarado with GI in his office upon discharge. Please call his office to schedule your hospital follow-up appointment (ph. [phone]) -You have an irregular heart rhythm however because of falls and the episode of passing out you discussed blood thinners with the orthopaedic physician assistant and decided against taking a full dose blood thinner but you will continue your aspirin. This can be further discussed with your outpatient provider or cardiology upon follow-up -You will be discharged with instructions for a 30-day event monitor to monitor your heart rate and rhythm -You will be discharged with protonix this time due to some irritation in your duodenum seen during your EGD (upper scope preformed in the hospital) -You are taking multiple supplements, recommend to continue keeping these on your medication list and updating as applicable and informing your providers as supplements at times can interact with other medications. Recommend holding these until discussing with your primary care provider as supplements can sometimes increase risk of bleeding -Your blood pressure medications have been adjusted and your lisinopril?hydrochlorothiazide has been stopped and your metoprolol succinate has been increased to 50 twice a day -You are on Ativan on an outpatient basis as well as recently prescribed pain medication, either medicine alone and especially this combination can increase risk of falls and confusion so recommend discussing this with your primary care physician and optimally being on only 1 at a time to like this -Please call your primary care provider's office upon discharge to schedule a hospital follow up within 1 week. -For any concerning signs or symptoms please call 911 or proceed to the nearest emergency department Discharge Orders/Prescriptions Prescriptions: New pantoprazole [Protonix] 40 mg tablet,delayed release (DR/EC) 40 mg PO DAILY Qty: 30 0RF metoprolol succinate 25 mg Tablet Extended Release 24 Hr 50 mg PO BID 30 Days Qty: 120 0RF Continued cyanocobalamin (vitamin B-12) 1,000 mcg tablet extended release 1,000 mcg PO DAILY donepezil 10 mg tablet 10 mg PO QHS Qty: 90 2RF atorvastatin 40 mg tablet 40 mg PO QHS quetiapine 25 mg tablet 25 mg PO QHS aspirin 81 MG tablet,delayed release (DR/EC) 81 mg PO DAILY multivitamin Tablet 1 tab PO DAILY magnesium oxide 500 mg Tablet 500 mg PO DAILY lorazepam 0.5 mg Tablet 0.5 mg PO QHS sertraline [Zoloft] 25 mg Tablet 25 mg PO DAILY Probiotic 15 billion cell Capsule 30 cap PO potassium chloride 20 mEq tablet,ER particles/crystals 20 meq PO DAILY Qty: 90 3RF Held cinnamon bark [Cinnamon] 500 mg capsule 500 mg PO BID Hold Instructions: Resume on 03/19/23. Recommend holding suppliments until dicussing with your primary care provider as suppliments can sometimes increse risk of bleeding cod liver oil Capsule 1 cap PO DAILY Hold Instructions: Resume on 03/19/23. Recommend holding suppliments until dicussing with your primary care provider as suppliments can sometimes increse risk of bleeding FACTOR 5 MTV 1 tab PO/SL BID Hold Instructions: Resume on 03/19/23. Recommend holding suppliments until dicussing with your primary care provider as suppliments can sometimes increse risk of bleeding ARTERY CARE 4 tab BID Hold Instructions: Resume on 03/19/23. Recommend holding suppliments until dicussing with your primary care provider as suppliments can sometimes increse risk of bleeding Discontinued metoprolol succinate 25 mg Tablet Extended Release 24 Hr 12.5 mg PO BID 30 Days Qty: 30 0RF oxycodone 5 mg Tablet 5 mg PO Q8H PRN (Reason: Pain) lisinopril-hydrochlorothiazide 10-12.5 mg tablet 1 tab PO QHS Other Ambulatory Orders: 30 Day Event Recorder Preventi (Urgent) Timeframe: 1 Day Facility: [facility] - Location: Cardiovascular Services Ordered By: Dr. Herminia Cardenas Referrals / Follow Up: John Gutierrez DO [Primary Care Provider] - Within 1 Week Steven Sparks MD [Med Staff - Active Staff] - See Referral Note (Please follow-up with cardiology upon discharge. Please call their office to schedule hospital follow-up appointment upon discharge, Dr. Sparks based on the hospital does not see patients in the office but you will be able to be seen by another member in the office) Rogerio Alvarado DO [Med Staff - Active Staff] - See Referral Note (You will need to follow-up with Dr. Alvarado with GI in his office upon discharge. Please call his office to schedule your hospital follow-up appointment (ph. [phone])) Disposition Disposition (needs filled in before D/C Order can be placed): Home, Self Care Charges/Coding Visit Charges Inpatient E&M: 43247 Disch Hosp >30min
--- NOTE | 2023-03-18 15:27 | PCM.PN.CARD ---
Subjective Subjective No further syncope Objective Data Vital Signs: Vital Signs Temp Pulse Resp BP Pulse Ox O2 Del Method O2 Flow Rate 97.5 F L 75 18 140/94 H 92 Nasal Cannula 3 03/18/23 09:20 03/18/23 09:26 03/18/23 09:20 03/18/23 09:26 03/18/23 09:25 03/18/23 09:25 03/18/23 09:25 Oxygen Flow Rate (L/min) 3 Oxygen Delivery Method Nasal Cannula Weight: 149 lb 14.629 oz Body Mass Index (BMI) 28.3 Intake & Output: Intake and Output for Last 24 Hours 03/16/23 03/17/23 03/18/23 23:59 23:59 23:59 Intake Total 1857.67 / 1857.67 584.33 / 584.33 340 / 340 Balance 1857.67 / 1857.67 584.33 / 584.33 340 / 340 Lab / Micro Data Result Diagrams: 03/18/23 06:35 03/18/23 06:35 Labs: Laboratory Results - last 24 hr 03/18/23 06:35: WBC 5.9, RBC 4.06 L, Hgb 13.0, Hct 40.2, MCV 99.0, MCH 32.0, MCHC 32.3, RDW Std Deviation 50.3 H, RDW Coeff of Hafsa 13.7, Plt Count 183, MPV 10.8, Immature Gran % (Auto) 0.300, Neut % (Auto) 69.7, Lymph % (Auto) 18.1 L, [place] % (Auto) 9.4, Eos % (Auto) 2.2, Baso % (Auto) 0.3, Absolute Neuts (auto) 4.1, Absolute Lymphs (auto) 1.06, Nucleated RBC % 0 03/18/23 06:35: Sodium 138, Potassium 3.9, Chloride 103, Carbon Dioxide 29.0, Anion Gap 6, BUN 7, Creatinine 0.76, Estim Creat Clear Calc 31.04, Est GFR (MDRD) Af Amer 93, Est GFR (MDRD) Non-Af 77, BUN/Creatinine Ratio 9.2 L, Glucose 128 H, Calcium 8.9 Micro: Microbiology 03/17/23 13:40 Mucosa - Nasopharyngeal Respiratory Panel (PCR) - Final 03/17/23 13:25 Nasal Secretion SARS-CoV-2 & FLU Antigen (Rapid) - Final Cardiology Labs/Tests 03/18/23 06:35: WBC 5.9, RBC 4.06 L, Hgb 13.0, Hct 40.2, MCV 99.0, MCH 32.0, MCHC 32.3, Plt Count 183, MPV 10.8, Immature Gran % (Auto) 0.300, Neut % (Auto) 69.7, Lymph % (Auto) 18.1 L, [place] % (Auto) 9.4, Eos % (Auto) 2.2, Baso % (Auto) 0.3, Absolute Neuts (auto) 4.1, Nucleated RBC % 0 03/18/23 06:35: Sodium 138, Potassium 3.9, Chloride 103, Carbon Dioxide 29.0, Anion Gap 6, BUN 7, Creatinine 0.76, Est GFR (MDRD) Af Amer 93, Est GFR (MDRD) Non-Af 77, BUN/Creatinine Ratio 9.2 L, Glucose 128 H, Calcium 8.9 Rhythm: EKG: ECHO: Stress Test: Cardiac Cath: PCI: CT Surgery: Holter monitor: EPS: PPM: CXR: Chest CT Scan: Radiography Diagnostic Testing: Radiology Impression Brain CT 03/18/23 11:59 IMPRESSION: Chronic involutional changes of the brain. Small scalp hematoma overlying the mid frontal bone. Electronically Signed: Sánchez Wilkins MD at 13:39 EDT Reading Location ID and State: [address] [place] [address] , Service support , Physical Exam Const alert and oriented x3 HEENT normocephalic Eyes no scleral icterus Resp normal respiratory effort Cardio Cardio Narrative: Irregular rhythm Assessment & Plan Assessment/Plan (1) Vasovagal syncope: PLAN: Likely vasovagal. Patient's heart rate is elevated. We will increase her metoprolol to 50 mg p.o. twice daily. She had a fall and hit her head this time with her syncope. She does not have any warning symptoms. Eliquis was discussed with the patient and it was decided not to keep her on that because of her falls and syncope. I think it is better to hold off on the Eliquis for now as well. Patient will also be getting a 30-day event monitor. She can be discharged home from a cardiac standpoint when okay with the primary service. Charges/Coding Visit Charges Inpatient E&M: 30959 Init Hosp L1
[2023-03-18 15:29] VITALS: BP 140/94; PULSE 75; RESP 18; TEMP 36.4; O2SAT 94
[2023-03-18 15:46] VITALS: O2SAT 85; O2SAT 92; O2SAT 93
--- NOTE | 2023-03-18 15:57 | DCINST_ITS ---
Discharge Instructions Diet Discharge Diet: - (DASH diet) Activity Discharge Activity: - (As tolerated) Follow Up Care Test Results: Test results from this visit will be discussed in further detail at your follow-up appointment, if applicable. Discharge Plan Admission Admit Date/Time: 03/16/23 05:29 Primary Reason for Your Visit: Syncope Attending Provider: Herminia Cardenas Primary Care Provider: John Gutierrez Consulting Providers: Ran Mejias ; Steven Sparks ; Rogerio Alvarado Instructions Patient Instructions: ED Fall Prevention Additional Instructions / Restrictions: DISCHARGE INSTRUCTIONS PLEASE READ *Please take this with you to your next doctors appointment* -Please follow-up with cardiology upon discharge. Please call their office to schedule hospital follow-up appointment upon discharge, Dr. Sparks based on the hospital does not see patients in the office but you will be able to be seen by another member in the office -You will need to follow-up with Dr. Alvarado with GI in his office upon discharge. Please call his office to schedule your hospital follow-up appointment (ph. [phone]) -You have an irregular heart rhythm however because of falls and the episode of passing out you discussed blood thinners with the donor relations associate and decided against taking a full dose blood thinner but you will continue your aspirin. This can be further discussed with your outpatient provider or cardiology upon follow-up -You will be discharged with instructions for a 30-day event monitor to monitor your heart rate and rhythm -You will be discharged with protonix this time due to some irritation in your duodenum seen during your EGD (upper scope preformed in the hospital) -You are taking multiple supplements, recommend to continue keeping these on your medication list and updating as applicable and informing your providers as supplements at times can interact with other medications. Recommend holding these until discussing with your primary care provider as supplements can sometimes increase risk of bleeding -Your blood pressure medications have been adjusted and your lisinopril?hydrochlorothiazide has been stopped and your metoprolol succinate has been increased to 50 twice a day -You are on Ativan on an outpatient basis as well as recently prescribed pain medication, either medicine alone and especially this combination can increase risk of falls and confusion so recommend discussing this with your primary care physician and optimally being on only 1 at a time to like this -Please call your primary care provider's office upon discharge to schedule a hospital follow up within 1 week. -For any concerning signs or symptoms please call 911 or proceed to the nearest emergency department Discharge Orders/Prescriptions Prescriptions: New pantoprazole [Protonix] 40 mg tablet,delayed release (DR/EC) 40 mg PO DAILY Qty: 30 0RF metoprolol succinate 25 mg Tablet Extended Release 24 Hr 50 mg PO BID 30 Days Qty: 120 0RF Continued cyanocobalamin (vitamin B-12) 1,000 mcg tablet extended release 1,000 mcg PO DAILY donepezil 10 mg tablet 10 mg PO QHS Qty: 90 2RF atorvastatin 40 mg tablet 40 mg PO QHS quetiapine 25 mg tablet 25 mg PO QHS aspirin 81 MG tablet,delayed release (DR/EC) 81 mg PO DAILY multivitamin Tablet 1 tab PO DAILY magnesium oxide 500 mg Tablet 500 mg PO DAILY lorazepam 0.5 mg Tablet 0.5 mg PO QHS sertraline [Zoloft] 25 mg Tablet 25 mg PO DAILY Probiotic 15 billion cell Capsule 30 cap PO potassium chloride 20 mEq tablet,ER particles/crystals 20 meq PO DAILY Qty: 90 3RF Held cinnamon bark [Cinnamon] 500 mg capsule 500 mg PO BID Hold Instructions: Resume on 03/19/23. Recommend holding suppliments until dicussing with your primary care provider as suppliments can sometimes increse risk of bleeding cod liver oil Capsule 1 cap PO DAILY Hold Instructions: Resume on 03/19/23. Recommend holding suppliments until dicussing with your primary care provider as suppliments can sometimes increse risk of bleeding FACTOR 5 MTV 1 tab PO/SL BID Hold Instructions: Resume on 03/19/23. Recommend holding suppliments until dicussing with your primary care provider as suppliments can sometimes increse risk of bleeding ARTERY CARE 4 tab BID Hold Instructions: Resume on 03/19/23. Recommend holding suppliments until dicussing with your primary care provider as suppliments can sometimes increse risk of bleeding Discontinued metoprolol succinate 25 mg Tablet Extended Release 24 Hr 12.5 mg PO BID 30 Days Qty: 30 0RF oxycodone 5 mg Tablet 5 mg PO Q8H PRN (Reason: Pain) lisinopril-hydrochlorothiazide 10-12.5 mg tablet 1 tab PO QHS Other Ambulatory Orders: 30 Day Event Recorder Preventi (Urgent) Timeframe: 1 Day Facility: [facility] - Location: Cardiovascular Services Ordered By: Dr. Herminia Cardenas Referrals / Follow Up: John Gutierrez DO [Primary Care Provider] - Within 1 Week Steven Sparks MD [Med Staff - Active Staff] - See Referral Note (Please follow-up with cardiology upon discharge. Please call their office to schedule hospital follow-up appointment upon discharge, Dr. Sparks based on the hospital does not see patients in the office but you will be able to be seen by another member in the office) Rogerio Alvarado DO [Med Staff - Active Staff] - See Referral Note (You will need to follow-up with Dr. Alvarado with GI in his office upon discharge. Please call his office to schedule your hospital follow-up appointment (ph. [phone])) Disposition Disposition (needs filled in before D/C Order can be placed): Home, Self Care
--- NOTE | 2023-03-18 16:00 | CASEMGMT ---
RN CM updated that patient will need home oxygen at discharge. RN CM in to room to discuss DME agencies. List review and patient and family prefer [employer]. Script received and sent to [facility]. Patient and family declined further needs at this time.
== END 2023-03-18 17:21 | disposition home or self-care (01) | DRG 378 ==
LOC: ED 06:25 → PCU 06:43
PROVIDERS: Internal Medicine Gastroenterology; Admitting Provider Hospitalist; Emergency Provider Emergency Medicine; PCP Family Medicine; Visit Provider Internal Medicine
PROC: 0DJ08ZZ Inspection of Upper Intestinal Tract, Via Natural or Artificial Opening Endoscopic (ICD-10-PCS; CPT 43235; principal; 2023-03-17 11:25)
DX: K31.811 Angiodysplasia of stomach and duodenum with bleeding (principal); I48.92 Unspecified atrial flutter; D62 Acute posthemorrhagic anemia; E87.8 Other disorders of electrolyte and fluid balance, not elsewhere classified; I48.0 Paroxysmal atrial fibrillation; R55 Syncope and collapse; E87.6 Hypokalemia; I25.10 Atherosclerotic heart disease of native coronary artery without angina pectoris; I10 Essential (primary) hypertension; D50.9 Iron deficiency anemia, unspecified; S00.03XA Contusion of scalp, initial encounter; W19.XXXA Unspecified fall, initial encounter; Z79.1 Long term (current) use of non-steroidal anti-inflammatories (NSAID); Z79.82 Long term (current) use of aspirin; R09.02 Hypoxemia; Z95.5 Presence of coronary angioplasty implant and graft
CPT/HCPCS: 36415; 70450; 71275; 72125; 73030; 73502; 76700; 80048; 82274; 83605; 83735; 84132; 84443; 85014; 85018; 85025; 86850; 86870; 86900; 86901; 87428; 87633; 88305; 93005; 93306; 99283; J7030; J7040; J7120; Q9967; A4216; J2405; J3490